=== PATIENT | female | born 1960 | race Caucasian/White ===

== ENCOUNTER 2019-06-22 13:23 | Outpatient (RCR) | payer BC, SELFPAY | END 2019-09-20 23:59 | disposition home or self-care (01) | LOC: ANHDMC 13:23 | PROVIDERS: PCP Family Medicine; Visit Provider Family Medicine | DX: E11.9 Type 2 diabetes mellitus without complications (principal); Z71.89 Other specified counseling | CPT/HCPCS: G0108 ==

== ENCOUNTER 2019-11-03 10:22 | Outpatient (CLI) | payer BC, SELFPAY ==
[2019-11-03 19:00] LABS: Free T4 Free Thyroxine 0.66 ng/mL (0.78-2.19)
[2019-11-05 10:04] LABS: Triiodothyronine T3 Free 2.3 pg/mL (2.3-4.2)
== END 2019-11-03 10:23 | disposition home or self-care (01) ==
LOC: ANHWCLAB 10:25
PROVIDERS: PCP Family Medicine; Visit Provider Internal Medicine Endocrinology, Diabetes & Metabolism
DX: E04.1 Nontoxic single thyroid nodule (principal); E05.90 Thyrotoxicosis, unspecified without thyrotoxic crisis or storm
CPT/HCPCS: 36415; 84439; 84481

== ENCOUNTER 2019-11-10 09:53 | Outpatient (CLI) | payer BC, SELFPAY | END 2019-11-10 09:54 | disposition home or self-care (01) | LOC: ANHWCLAB 09:55 | PROVIDERS: PCP Family Medicine; Visit Provider Internal Medicine Endocrinology, Diabetes & Metabolism | DX: E05.90 Thyrotoxicosis, unspecified without thyrotoxic crisis or storm (principal) | CPT/HCPCS: 36415; 84443 ==

== ENCOUNTER 2020-02-29 12:38 | Emergency (ER) | payer BC, SELFPAY ==
[2020-02-29 13:06] VITALS: BP 134/88; PULSE 85; RESP 16; TEMP 36.9; O2SAT 97
== END 2020-02-29 13:13 | disposition left against medical advice (07) ==
LOC: EXPCOLL 12:47
PROVIDERS: Emergency Provider Nurse Practitioner; PCP Family Medicine
DX: Z53.21 Procedure and treatment not carried out due to patient leaving prior to being seen by health care provider (principal)
CPT/HCPCS: 99199

== ENCOUNTER 2020-02-29 13:21 | Emergency (ER) | payer BC, SELFPAY ==
--- NOTE | ~2020-02-29 | CT_ITS ---
EXAMINATION: CT abdomen pelvis wo con DATE: 02/29/2020 15:38 INDICATION: Right-sided flank pain and hematuria TECHNIQUE: Computed tomography (CT) of the abdomen and pelvis was performed without intravenous contr ast. The dose-length product was 860.74 mGy-cm. Automated exposure control and iterative reconstructi on technique were employed. COMPARISON: CT dated 12/15/2013 FINDINGS: Bibasilar airspace disease. Heart size normal. No significant pleural or pericardial effusi on. No significant vascular abnormality. Small fat-containing umbilical hernia. There are multiple left renal stones. No ureteral stones or hy dronephrosis. There are cholecystectomy clips. Colonic diverticulosis without evidence for diverticul itis. IMPRESSION: 1. Bibasilar airspace disease may represent atelectasis or pneumonia. 2: Nonobstructing left nephrolithiasis. Reviewed, dictated and finalized at location B.
[2020-02-29 13:29] VITALS: BP 132/83; PULSE 97; RESP 16; TEMP 36.1; O2SAT 100
--- NOTE | 2020-02-29 15:02 | ED.ABDPAIN ---
HPI - Abdominal Pain General Chief Complaint: Abdominal Pain Stated Complaint: rlq pain, low back pain, recent uti Time Seen by Provider: 02/29/20 14:43 Source: patient Mode of arrival: ambulatory Limitations: no limitations History of Present Illness HPI narrative: This is a 59-year-old female that presents the emergency department for right-sided flank pain x1 week. Reports the pain is constant and intermittently is worse. Reports the pain radiates to her right lower abdomen. Also reports hematuria and fevers. Reports she has been seen by her primary for this and finished ciprofloxacin. Reports she is currently on Macrobid. Denies dysuria. Related Data Home Medications Medication Instructions Recorded Confirmed aspirin 81 mg tablet,delayed 81 mg PO DAILY 07/30/19 12/06/19 release cetirizine 10 mg capsule 10 mg PO DAILY 07/30/19 12/06/19 cholecalciferol (vitamin D3) 25 1,000 unit PO DAILY 07/30/19 12/06/19 mcg (1,000 unit) capsule cyanocobalamin (vitamin B-12) 1,000 mcg PO DAILY 07/30/19 12/06/19 1,000 mcg capsule potassium chloride 10 mEq 10 meq PO DAILY 07/30/19 12/06/19 capsule,extended release ferrous sulfate 325 mg (65 mg 325 mg PO DAILY tablet 11/03/19 12/06/19 iron) tablet metoprolol tartrate [Lopressor] 50 mg PO BID 02/29/20 Allergies Allergy/AdvReac Type Severity Reaction Status Date / Time sulfamethoxazole Allergy Intermediate HIVES Verified 02/29/20 13:44 Penicillins Allergy Unknown unknown Verified 02/29/20 13:44 sulfamethizole Allergy Unknown unknown Verified 02/29/20 13:44 trimethoprim Allergy Unknown unknown Verified 02/29/20 13:44 Review of Systems Review of Systems: Narrative: CONSTITUTIONAL: Reports fever GASTROINTESTINAL: Reports abdominal pain, nausea. Denies vomiting, or diarrhea. GENITOURINARY: Reports hematuria. Denies dysuria MUSCULOSKELETAL: Reports back pain All systems reviewed & are unremarkable except as noted in HPI and below PMFSH Past Medical History Medical History (Updated 02/29/20 @ 16:35 by Zita Sandoval PA-C) Cholecystectomy planned Diabetes mellitus Hypertension Surgical History Surgical History H/O: hysterectomy History of appendectomy Hx of tonsillectomy Knee joint replacement status Status post radioactive iodine thyroid ablation Social History Social History Smoking status: Never smoker Alcohol intake: never Gender identity (if verbalized by the patient): Female Exam Narrative: Exam Narrative: GENERAL: Well-appearing, well-nourished, and in no acute distress. HEAD: Normocephalic, atraumatic. EYES: EOMI. CHEST: Clear to auscultation. No respiratory distress. No wheezes rales or rhonchi HEART: Regular rate and rhythm. No murmur heard. Normal peripheral pulses. ABDOMEN: Soft, nondistended, normal active bowel sounds. Tender to palpation in the right lower quadrant, without guarding EXTREMITIES: Normal range of motion. No edema. SKIN: Warm, dry, no rash. NEURO: No focal deficits. Alert and oriented x3. PSYCH: Normal mood and affect Course Vital Signs Vital signs: Vital Signs Temperature 97.0 F L 02/29/20 13:29 Pulse Rate 97 02/29/20 13:29 Respiratory Rate 16 02/29/20 13:29 Blood Pressure 132/83 02/29/20 13:29 Pulse Oximetry 100 02/29/20 13:29 Temperature 97.0 F L 02/29/20 13:29 Pulse Rate 97 02/29/20 13:29 Respiratory Rate 16 02/29/20 13:29 Blood Pressure 132/83 02/29/20 13:29 Pulse Oximetry 100 02/29/20 13:29 MDM - Abdominal Pain MDM Narrative Medical decision making narrative: Patient presents to the emergency department for right-sided flank pain x1 week. She is afebrile and nontoxic-appearing. CBC is without leukocytosis. Metabolic panel with mild hypokalemia. Patient given dose of potassium in the ED. Also with mild transaminitis. UA with 3-5 red blood cells, no white
[2020-02-29] MEDS: SODIUM CHLORIDE 0.9% IV 1,000 ML 999 ML IV CONT (15:08)
[2020-02-29] MEDS: ONDANSETRON INJ 4 MG/2 ML VIAL IV PUSH (15:09)
[2020-02-29] MEDS: MORPHINE SULFATE 4 MG/ML INJ IV PUSH (15:09)
[2020-02-29 15:10] LABS: Basophils Percent Auto 0.8 % (0.2-1.2); Eosinophils Percent Auto 0.6 % (0-4.4); Hematocrit 40.4 % (37.0-47.0); Hemoglobin 13.2 g/dL (12.0-15.0); Immature Granulocyte Absolute 0.02 K/mm3 (0.00-0.031); Immature Granulocyte Percent A 0.4 % (0-0.5); Lymphocytes Absolute Auto 3.02 K/mm3 (0.9-3.2); Lymphocytes Percent Auto 57.5 % (18.3-44.2); Mean Corpuscular HGB Conc 32.7 g/dl (32-36); Mean Corpuscular Hemoglobin 28.8 pg (26-34); Mean Platelet Volume 9.3 fl (7.4-10.4); Monocytes Absolute Auto 0.3 K/mm3 (0.1-0.6); Monocytes Percent Auto 6.5 % (2.6-8.5); Neutrophils Absolute Auto 1.8 K/mm3 (1.3-6.7); Neutrophils Percent Auto 34.2 % (45.5-73.1); Platelet Count Result 146 k/mm3 (150-375); Red Blood Count 4.59 M/mm3 (4.2-5.4); Red Cell Distribution Width 14.6 % (11.5-14.5); White Blood Count 5.3 K/mm3 (4.5-10.0)
[2020-02-29 15:18] LABS: Add Urine Microscopic? YES; Appearance Urine Clear (Clear); Bilirubin Urine Negative (Negative); Blood Urine 1+ (Negative); Color Urine Yellow (Yellow); Glucose Urine UA Negative (Negative); Ketones Urine Negative (Negative); Leukocyte Esterase Ur Trace LEU/UL (Negative); Mucus Urine Rare /lpf; Nitrate Urine Negative (Negative); Protein Urine 1+ mg/dL (Negative); Specific Grav Ur 1.016 (1.001-1.035); Squamous Epithelial Cell Urine Moderate /hpf (Few); Urobilinogen Urine Negative mg/dL (<2.0); WBC Urine 0-3 /hpf
[2020-02-29 15:23] LABS: Alanine Aminotransferase 57 U/L (4-35); Albumin Level 4.6 g/dL (3.5-5.1); Alkaline Phosphatase 87 U/L (38-126); Aspartate Amino Transferase 78 U/L (14-36); Bilirubin,Total 0.8 mg/dL (0.2-1.3); Blood Urea Nitrogen 15 mg/dL (7-17); Calcium 9.4 mg/dL (8.4-10.2); Carbon Dioxide 30 mmol/L (22-30); Chloride 94 mmol/L (98-107); Estimated CRCL calculation 71 ml/min; Estimated Glomerular Filt Rate > 60; Glucose 136 mg/dL (65-105); Lipase 56 U/L (23-300); Potassium 3.3 mmol/L (3.4-5.0); Sodium 135 mmol/L (137-145)
[2020-02-29 15:32] LABS: Atypical Lymphocytes Present
[2020-02-29] MEDS: POTASSIUM CHLORIDE 20 MEQ TABLET 40 MEQ PO (16:23)
[2020-02-29 16:33] LABS: Lactic Acid Reflex 1.6 mmol/L (0.7-2.1)
[2020-02-29 17:13] VITALS: PULSE 88; RESP 20; O2SAT 100
== END 2020-02-29 17:15 | disposition home or self-care (01) ==
PROVIDERS: Physician Assistant; Emergency Provider Emergency Medicine; PCP Family Medicine
DX: R31.9 Hematuria, unspecified (principal); E11.9 Type 2 diabetes mellitus without complications; I10 Essential (primary) hypertension
CPT/HCPCS: 36415; 74176; 80053; 81001; 83605; 83690; 85025; 96361; 96365; 96375; 99284; A9270; J0131; J2270; J2405; J7030

== ENCOUNTER 2020-03-14 08:29 | Outpatient (CLI) | payer BC, SELFPAY ==
--- NOTE | ~2020-03-14 | CT_ITS ---
EXAMINATION: CT abdomen pelvis wo/w con DATE: 03/14/2020 09:19 INDICATION: Gross hematuria TECHNIQUE: Computed tomography (CT) of the abdomen and pelvis was performed without intravenous contr ast. CT of the abdomen and pelvis was then performed with a total of 130 mL Omnipaque 350 intravenous contrast using a double-bolus technique for simultaneous opacification of the renal parenchyma and r enal collecting system. The dose-length product (DLP) was 1999.73 mGy-cm. Automated exposure control and iterative reconstruction technique were employed. COMPARISON: 02/29/2020 FINDINGS: Minimal dependent atelectasis is present in the lung bases. The heart size is normal. The g allbladder is surgically absent. The liver, spleen, pancreas, and adrenal glands are normal. Nonobstr ucting stones of the left kidney lower pole measure 7 mm and 8 mm. No stones are identified in the ri ght kidney, the ureters, or the bladder. There is no hydronephrosis or hydroureter. No suspicious elvira al or urothelial lesion is identified. No pathologically enlarged abdominal or pelvic lymph nodes are identified. There is no free intraperitoneal gas or evidence of bowel obstruction. Colonic diverticu losis is present without evidence of diverticulitis. A tiny fat-containing umbilical hernia is noted. Mild lumbar spondylosis is noted. IMPRESSION: 1. Nonobstructing left nephrolithiasis. No suspicious renal or urothelial lesion identified. Reviewed, dictated and finalized at location B. IMPRESSION: 1. Nonobstructing left nephrolithiasis. No suspicious renal or urothelial lesio n identified.
--- NOTE | ~2020-03-14 | XR_ITS ---
EXAMINATION: XR abdomen/kub 1V INDICATION: Gross hematuria TECHNIQUE: Supine views of the abdomen were obtained on 2 radiographs. COMPARISON: None FINDINGS: Stones in the lower pole of left kidney measure 8 mm and 9 mm. There are no dilated loops o f bowel. Multiple pelvic phleboliths are noted. Cholecystectomy clips are noted in the right upper qu adrant. The bowel gas pattern is normal. IMPRESSION: 1. Left nephrolithiasis. Reviewed, dictated and finalized at location B. IMPRESSION: 1. Left nephrolithiasis.
== END 2020-03-14 08:30 | disposition home or self-care (01) ==
LOC: ANHIMG 08:35
PROVIDERS: PCP Family Medicine; Visit Provider Urology
DX: N20.0 Calculus of kidney (principal)
CPT/HCPCS: 74018; 74178; Q9967

== ENCOUNTER 2020-03-21 10:13 | Outpatient (CLI) | payer BC, SELFPAY ==
[2020-03-21 10:40] LABS: INR 1.1; Prothrombin Time 13.4 Seconds (11.1-14.7)
[2020-03-21 10:42] LABS: Anion Gap 12.1 mmol/L (7-16); Blood Urea Nitrogen 11 mg/dL (7-17); Calcium 9.2 mg/dL (8.4-10.2); Carbon Dioxide 33 mmol/L (22-30); Chloride 95 mmol/L (98-107); Estimated Glomerular Filt Rate > 60; Glucose 172 mg/dL (65-105); Potassium 3.1 mmol/L (3.4-5.0); Sodium 137 mmol/L (137-145)
== END 2020-03-21 10:14 | disposition home or self-care (01) ==
LOC: ANHSURGERY 10:14
PROVIDERS: Anesthesiology; PCP Family Medicine; Visit Provider Urology
DX: Z01.818 Encounter for other preprocedural examination (principal); N20.0 Calculus of kidney; E11.8 Type 2 diabetes mellitus with unspecified complications
CPT/HCPCS: 36415; 80048; 85610; 85730; 87086; 87088

== ENCOUNTER 2020-03-22 00:11 | Outpatient (CLI) | payer BC, SELFPAY ==
[2020-03-22 18:53] LABS: SARS-CoV-2 RNA PCR Negative
== END 2020-03-22 00:12 | disposition home or self-care (01) ==
LOC: ANHCOVIDDT 00:11
PROVIDERS: PCP Family Medicine; Visit Provider Urology
DX: Z01.812 Encounter for preprocedural laboratory examination (principal); Z11.59 Encounter for screening for other viral diseases
CPT/HCPCS: 87635; C9803; U0003

== ENCOUNTER 2020-03-24 00:21 | Day surgery (SDC) | payer BC, SELFPAY ==
[2020-03-20 13:48] VITALS: BMI 28.8
--- NOTE | 2020-03-23 10:44 | WPDANESEPPF ---
Anes - Initial Pre Proc Eval Procedure: Operation Date: 03/24/20 07:30 Proposed Procedures p Left Renal Extracorporeal Shock Wave Lithotripsy - Parminder Harrison MD Date/Time: 03/23/20 10:44 Surgeon: Parminder Harrison MD Pre Op Diagnosis: Left Renal Stone Patient Data Age: 59 Gender: F Height: 1.73 m Weight: 85.82 kg Allergies Allergy/AdvReac Type Severity Reaction Status Date / Time sulfamethoxazole Allergy Intermediate HIVES Verified 03/20/20 13:49 Penicillins Allergy Unknown Hives Verified 03/20/20 13:49 sulfamethizole Allergy Unknown Hives Verified 03/20/20 13:49 trimethoprim Allergy Unknown Hives Verified 03/20/20 13:49 Home Medications Medication Instructions Recorded Confirmed Type aspirin 81 mg tablet,delayed 81 mg PO DAILY 07/30/19 03/20/20 History release cetirizine 10 mg capsule 10 mg PO DAILY 07/30/19 03/20/20 History cholecalciferol (vitamin D3) 25 1,000 unit PO DAILY 07/30/19 03/20/20 History mcg (1,000 unit) capsule cyanocobalamin (vitamin B-12) 1,000 mcg PO DAILY 07/30/19 03/20/20 History 1,000 mcg capsule potassium chloride 10 mEq 10 meq PO DAILY 07/30/19 03/20/20 History capsule,extended release metformin 500 mg tablet,extended 1,000 mg PO BID #180 tablet 10/13/19 03/20/20 Rx release 24 hr montelukast 10 mg tablet 10 mg PO DAILY #90 tablet 10/14/19 03/20/20 Rx ferrous sulfate 325 mg (65 mg 325 mg PO DAILY tablet 11/03/19 03/20/20 History iron) tablet omeprazole 20 mg capsule,delayed 20 mg PO DAILY #90 cap 11/03/19 03/20/20 Rx release levothyroxine 100 mcg tablet 100 mcg PO DAILY #90 tablet 02/25/20 03/20/20 Rx metoprolol tartrate [Lopressor] 50 mg PO BID 02/29/20 03/20/20 History hydrochlorothiazide 12.5 mg tablet 12.5 mg PO DAILY #90 tablet 03/13/20 03/20/20 Rx Patient hx anesthesia problems: post op nausea/vomiting Family hx anesthesia problems: none PMFSH Past Medical History Medical History (Updated 03/23/20 @ 10:44 by Vishal Steen DO) Cholecystectomy planned Diabetes mellitus Hypertension Palpitations Postablative hypothyroidism Surgical History Surgical History H/O: hysterectomy History of appendectomy Hx of tonsillectomy Knee joint replacement status Status post radioactive iodine thyroid ablation Social History Social History Smoking status: Never smoker Alcohol intake: never Gender identity (if verbalized by the patient): Female Spiritual care concerns: No Anes - Eval Final PreProcedure Day of Procedure 03/23/20 10:44 Patient weight: overweight Heart: regular rate and rhythm Lungs: clear to auscultation and normal air movement Airway: Mallampati scale class III Neurological: alert and oriented Last oral intake: >/= 8 hours ASA classification: III Emergent: no Anesthetic plan: proceed Anesthesia type and monitoring: general LMA and standard monitoring Informed Consent: The patient's anesthetic plan and its attendant risks and benefits were discussed with the patient/family/POA. Questions were solicited and answers provided to the satisfaction of the patient/family/POA.
[2020-03-24] VITALS (8 sets, daily range): BP systolic 106–118; BP diastolic 61–79; PULSE 68–75; RESP 14–18; TEMP 36.1–36.2; O2SAT 95–100
--- NOTE | ~2020-03-24 | XR_ITS ---
XR abdomen/kub 1V DATE: 03/24/2020 06:20 INDICATION: Lithotripsy. Kidney stones. TECHNIQUE: AP projection, 2 views COMPARISON: KUB and CT abdomen pelvis without and with contrast material FINDINGS: Approximately 8 and 9 mm calcified calculi are again noted overlying the lower pole of left kidney, unchanged since 03/14/2020. Surgical clips, right upper quadrant, consistent with cholecystectomy. Calcified pelvic phleboliths. The bowel gas pattern is unremarkable, without evidence of obstruction. IMPRESSION: Lower pole left nephrolithiasis Status post cholecystectomy Reviewed, dictated and finalized at Location A. Reviewed, dictated and finalized at location A.
[2020-03-24] MEDS: FAMOTIDINE 20 MG/2 ML VIAL IV PUSH (07:00)
[2020-03-24] MEDS: SCOPOLAMINE 1.5 MG PATCH TRANSDERM (07:02)
[2020-03-24] MEDS: LACTATED RINGERS 1,000 ML 30 ML IV CONT ×2 (07:03→08:15)
--- NOTE | 2020-03-24 07:07 | WPDHPUPDATE1 ---
History and Physical Update Update Date/Time: 03/24/20 07:07 History and Physical has been reviewed, including an updated exam of the patient. There are NO changes in the patient's condition. Risks, benefits, and alternatives have been discussed and questions answered. Patient agrees to proceed with procedure.
[2020-03-24 07:18] LABS: Glucose Point of Care 143 (65-105)
[2020-03-24] MEDS: levoFLOXacin 500 MG/D5W 100 ML 500 MG/100 ML BAG 100 MG IVPB (07:22)
--- NOTE | 2020-03-24 08:08 | PM.PROC ---
Procedure Note - Detailed Date of procedure: 03/24/20 Pre-op diagnosis: Left Renal Stone Post-op diagnosis: same Procedure performed: ESWL left renal calculi Description of procedure: patient is taken to the operative suite and correctly identified. Once anesthesia was obtained the more superior stone measuring 9 mm is localized in both planes. There appeared to be fairly good fragmentation after 2200 shocks. We then focused the remaining 300 shocks on the other stone. Patient tolerated procedure well without any complications and is taken recovery room stable condition. She was given the standard post lithotripsy instructions and will follow up in 7-10 days with a KUB. IF she develops any problems she will call so we can deal with at appropriately. Anesthesia: GLMA Surgeon: Parminder Harrison MD Drains: No Packing: No Pathology: none sent Complications: No immediate complications Condition: stable Disposition: PACU
[2020-03-24 08:55] LABS: Glucose Point of Care 136 (65-105)
== END 2020-03-24 09:49 | disposition home or self-care (01) ==
PROVIDERS: PCP Family Medicine; Visit Provider Urology
PROC: (CPT 50590; principal; 2020-03-24 07:30)
DX: N20.0 Calculus of kidney (principal); I10 Essential (primary) hypertension; E11.9 Type 2 diabetes mellitus without complications; Z79.82 Long term (current) use of aspirin; Z79.84 Long term (current) use of oral hypoglycemic drugs
CPT/HCPCS: 50590; 74018; A9270; J1956; J2250; J2405; J2704; J3010; J7030; J7120

== ENCOUNTER 2020-04-03 08:01 | Outpatient (CLI) | payer BC, SELFPAY ==
--- NOTE | ~2020-04-03 | XR_ITS ---
EXAMINATION: XR abdomen/kub 1V INDICATION: Calcium kidney stone, left-sided abdominal pain TECHNIQUE: Supine views of the abdomen were obtained on 2 radiographs. COMPARISON: 03/24/2020 FINDINGS: There is a stable 10 mm stone of the left kidney lower pole. A second 10 mm stone of the le ft kidney lower pole is less dense than on the comparison examination, consistent with interval litho tripsy. No stones are identified along the expected course of the left ureter. Cholecystectomy clips are noted in the right upper quadrant. There are phleboliths of the pelvis. Mild bilateral hip osteoa rthritis is noted. IMPRESSION: 1. Left nephrolithiasis with interval decrease in density of one of the previously described stones, consistent with interval lithotripsy. Reviewed, dictated and finalized at location A. IMPRESSION: 1. Left nephrolithiasis with interval decrease in density of one of the previou sly described stones, consistent with interval lithotripsy.
== END 2020-04-03 08:02 | disposition home or self-care (01) ==
LOC: ANHIMG 08:07
PROVIDERS: PCP Family Medicine; Visit Provider Urology
DX: N20.0 Calculus of kidney (principal); R10.9 Unspecified abdominal pain; M54.5 Low back pain
CPT/HCPCS: 74018

== ENCOUNTER 2020-04-25 07:21 | Outpatient (CLI) | payer BC, SELFPAY ==
--- NOTE | ~2020-04-25 | XR_ITS ---
EXAMINATION: XR abdomen/kub 1V INDICATION: Left-sided calcium kidney stone post lithotripsy TECHNIQUE: Supine views of the abdomen were obtained on 2 radiographs. COMPARISON: 04/03/2020 FINDINGS: Stones of the left kidney lower pole persists with slight decrease in density, consistent w ith history of interval lithotripsy. Stone fragments measuring up to 2 mm project in the left mid/low er kidney. No definite stone fragments are identified along the expected course of the left ureter. T here are multiple pelvic phleboliths. A moderate volume of colonic stool is present. Cholecystectomy clips are noted. IMPRESSION: 1. Slight decrease in density of left kidney lower pole stones, consistent with history of lithotrips y. Tiny stone fragments seen in the left kidney lower pole. Reviewed, dictated and finalized at location B. IMPRESSION: 1. Slight decrease in density of left kidney lower pole stones, consistent with history of lithotripsy. Tiny stone fragments seen in the left kidney lower emma e.
== END 2020-04-25 07:22 | disposition home or self-care (01) ==
PROVIDERS: PCP Family Medicine; Visit Provider Urology
DX: N20.0 Calculus of kidney (principal)
CPT/HCPCS: 74018

== ENCOUNTER 2020-05-05 09:29 | Outpatient (CLI) | payer BC, SELFPAY ==
--- NOTE | 2020-05-05 09:31 | ECG_ITS ---
Measurements Intervals [place] Rate: 67 P: 16 OK: 154 QRS: 1 QRSD: 99 T: 9 QT: 389 QTc: 411 Interpretive Statements SINUS RHYTHM INCOMPLETE RIGHT BUNDLE BRANCH BLOCK NONSPECIFIC T-WAVE ABNORMALITY- ANTEROLAT/INF LEADS BASELINE ARTIFACT- I, II, III, AVR, AVL, AVF BORDERLINE ECG Electronically Signed On 05-05-2020 10:47:00 CDT by Geoffrey Meza D.O.
[2020-05-05 09:51] LABS: Hematocrit 38.5 % (37.0-47.0); Hemoglobin 12.4 g/dL (12.0-15.0)
[2020-05-05 10:01] LABS: INR 0.9; Prothrombin Time 12.2 Seconds (11.1-14.7)
[2020-05-05 10:02] LABS: Partial Thromboplastin Time 30.3 SECONDS (22.3-36.8)
== END 2020-05-05 09:30 | disposition home or self-care (01) ==
LOC: ANHSURGERY 09:31
PROVIDERS: Anesthesiology; PCP Family Medicine; Visit Provider Urology
DX: D64.9 Anemia, unspecified (principal); R00.2 Palpitations; N20.0 Calculus of kidney; I45.10 Unspecified right bundle-branch block
CPT/HCPCS: 36415; 85014; 85018; 85610; 85730; 87086; 93005

== ENCOUNTER 2020-05-17 02:38 | Outpatient (CLI) | payer BC, SELFPAY ==
[2020-05-17 18:24] LABS: SARS-CoV-2 RNA PCR Negative
== END 2020-05-17 02:39 | disposition home or self-care (01) ==
LOC: ANHCOVIDDT 02:38
PROVIDERS: PCP Family Medicine; Visit Provider Urology
DX: Z01.812 Encounter for preprocedural laboratory examination (principal); Z20.828 Contact with and (suspected) exposure to other viral communicable diseases
CPT/HCPCS: 87635; C9803; U0003

== ENCOUNTER 2020-05-19 00:53 | Day surgery (SDC) | payer BC, SELFPAY ==
[2020-05-04 15:18] VITALS: BMI 28.8
[2020-05-19] VITALS (7 sets, daily range): BP systolic 109–123; BP diastolic 68–77; PULSE 71–77; RESP 14–18; TEMP 35.9–36.7; O2SAT 97–100
--- NOTE | ~2020-05-19 | XR_ITS ---
EXAMINATION: XR abdomen/kub 1V EXAM DATE: 05/19/2020 06:27 INDICATION: For the emergency. TECHNIQUE: Frontal projection(s) of the abdomen for interpretation. Comparison is made to prior exami nation from 04/25/2020. FINDINGS: There are sizable left inferior calyceal stones identified through moderate amount of colo tanvir stool and gas. There are cholecystectomy clips. Nonobstructive bowel gas pattern. IMPRESSION: Left nephrolithiasis identified. Reviewed, dictated and finalized at location A.
[2020-05-19 06:52] LABS: Glucose Point of Care 202 (65-105)
[2020-05-19] MEDS: LACTATED RINGERS 1,000 ML 30 ML IV CONT ×2 (06:55→08:56)
--- NOTE | 2020-05-19 07:22 | WPDHPUPDATE1 ---
History and Physical Update Update Date/Time: 05/19/20 07:22 History and Physical has been reviewed, including an updated exam of the patient. There are NO changes in the patient's condition. Risks, benefits, and alternatives have been discussed and questions answered. Patient agrees to proceed with procedure. Proceed with left renal eswl
--- NOTE | 2020-05-19 07:54 | WPDANESEPPF ---
Anes - Initial Pre Proc Eval Procedure: Operation Date: 05/19/20 08:30 Proposed Procedures p Left Renal Extracorporeal Shock Wave Lithotripsy - Parminder Harrison MD Date/Time: 05/19/20 07:54 Surgeon: Parminder Harrison MD Pre Op Diagnosis: Left Renal Stone Patient Data Age: 60 Gender: F Height: 5 ft 8 in Weight: 91 kg Last Vital Signs Temp 35.9 C L 05/19/20 07:13 Pulse 71 05/19/20 07:13 Resp 16 05/19/20 07:13 BP 123/69 05/19/20 07:13 Pulse Ox 98 05/19/20 07:13 Allergies Allergy/AdvReac Type Severity Reaction Status Date / Time Penicillins Allergy Severe Hives Verified 05/19/20 06:42 sulfamethizole Allergy Severe Hives Verified 05/19/20 06:42 sulfamethoxazole Allergy Severe HIVES Verified 05/19/20 06:42 trimethoprim Allergy Severe Hives Verified 05/19/20 06:42 Home Medications Medication Instructions Recorded Confirmed Type aspirin 81 mg tablet,delayed 81 mg PO DAILY 07/30/19 05/19/20 History release cetirizine 10 mg capsule 10 mg PO DAILY 07/30/19 05/19/20 History cholecalciferol (vitamin D3) 25 1,000 unit PO DAILY 07/30/19 05/19/20 History mcg (1,000 unit) capsule cyanocobalamin (vitamin B-12) 1,000 mcg PO DAILY 07/30/19 05/19/20 History 1,000 mcg capsule potassium chloride 10 mEq 10 meq PO DAILY 07/30/19 05/19/20 History capsule,extended release montelukast 10 mg tablet 10 mg PO DAILY #90 tablet 10/14/19 05/19/20 Rx ferrous sulfate 325 mg (65 mg 325 mg PO DAILY tablet 11/03/19 05/19/20 History iron) tablet omeprazole 20 mg capsule,delayed 20 mg PO DAILY #90 cap 11/03/19 05/19/20 Rx release levothyroxine 100 mcg tablet 100 mcg PO DAILY #90 tablet 02/25/20 05/19/20 Rx metoprolol tartrate [Lopressor] 50 mg PO BID 02/29/20 05/19/20 History hydrochlorothiazide 12.5 mg tablet 12.5 mg PO DAILY #90 tablet 03/13/20 05/19/20 Rx metformin 500 mg tablet,extended 1,000 mg PO BID #180 tablet 04/11/20 05/19/20 Rx release 24 hr Laboratory Tests 05/19/20 06:50 POC Capillary Glucose 202 mg/dl H mg/dl (65-105) Patient hx anesthesia problems: none Family hx anesthesia problems: none PMFSH Past Medical History Medical History Cholecystectomy planned Diabetes mellitus Hypertension Palpitations Postablative hypothyroidism Surgical History Surgical History H/O: hysterectomy History of appendectomy Hx of tonsillectomy Knee joint replacement status Status post radioactive iodine thyroid ablation Family History Family History Father Diabetes mellitus Family history of cardiovascular disease Family history of diabetes mellitus in first degree relative Family history of congestive heart failure Family history of heart disease in male family member before age 55 Family history of hearing loss Hypertension Family history of elevated blood lipids Sibling Family history of migraine headaches Mother Family history of glaucoma Family history of cataracts Family history of arthritis Family history of malignant neoplasm of skin Family history of cardiovascular disease Hypertension Social History Social History Smoking status: Never smoker Alcohol intake: never Gender identity (if verbalized by the patient): Female Spiritual care concerns: No Anes - Eval Final PreProcedure Day of Procedure 05/19/20 07:54 Patient weight: obese Heart: regular rate and rhythm Lungs: clear to auscultation Airway: Mallampati scale class III and special considerations poor opening Neurological: alert and oriented Last oral intake: >/= 8 hours ASA classification: III Emergent: no Anesthetic plan: proceed Anesthesia type and monitoring: general LMA and standard monitoring Informed Consent: The patient's anesthetic plan and its at
[2020-05-19] MEDS: levoFLOXacin 500 MG/D5W 100 ML 500 MG/100 ML BAG 100 MG IVPB (08:19)
--- NOTE | 2020-05-19 08:58 | PM.PROC ---
Procedure Note - Detailed Date of procedure: 05/19/20 Pre-op diagnosis: Left Renal Stone Post-op diagnosis: same Procedure performed: ESWL left renal calculi Description of procedure: Patient is taken to the operative suite and correctly identified. Once anesthesia was obtained the stone in the left lower poles were identified. Two thousand five hundred shocks were given to the stones. Patient tolerated procedure well without any complications and was taken recovery stable condition. She will follow up in 7-10 days with a KUB. Anesthesia: GLMA Surgeon: Parminder Harrison MD Drains: No Packing: No Pathology: none sent Complications: No immediate complications Condition: stable Disposition: PACU
== END 2020-05-19 10:20 | disposition home or self-care (01) ==
PROVIDERS: PCP Family Medicine; Visit Provider Urology
PROC: (CPT 50590; principal; 2020-05-19 08:30)
DX: N20.0 Calculus of kidney (principal); I10 Essential (primary) hypertension; E11.9 Type 2 diabetes mellitus without complications; E89.0 Postprocedural hypothyroidism; Z79.82 Long term (current) use of aspirin; Z79.84 Long term (current) use of oral hypoglycemic drugs; E66.9 Obesity, unspecified; Z68.30 Body mass index [BMI] 30.0-30.9, adult
CPT/HCPCS: 50590; 74018; J1100; J1956; J2250; J2405; J3010; J7120

== ENCOUNTER 2020-06-01 10:52 | Outpatient (CLI) | payer BC, SELFPAY ==
--- NOTE | ~2020-06-01 | XR_ITS ---
EXAMINATION: XR abdomen/kub 1V INDICATION: Calcium kidney stone TECHNIQUE: Supine views of the abdomen were obtained on 2 radiographs. COMPARISON: 05/19/2020 FINDINGS: There are stable grouped stones in the lower pole of the left kidney. No stones are identif ied in the right kidney or along the expected courses of the ureters or bladder. There are phlebolith s of the pelvis. A moderate volume of colonic stool is present. Cholecystectomy clips are noted in th e right upper quadrant. There is mild osteoarthritis of the hips. IMPRESSION: 1. Left nephrolithiasis without significant change. Reviewed, dictated and finalized at location A.
== END 2020-06-01 10:53 | disposition home or self-care (01) ==
LOC: ANHIMG 10:56
PROVIDERS: PCP Family Medicine; Visit Provider Urology
DX: N20.0 Calculus of kidney (principal)
CPT/HCPCS: 74018

== ENCOUNTER 2020-06-13 07:47 | Outpatient (CLI) | payer BC, SELFPAY ==
--- NOTE | ~2020-06-13 | US_ITS ---
EXAMINATION: US thyroid DATE: 06/13/2020 09:46 INDICATION: Thyroid nodules TECHNIQUE: Multiple ultrasound images of the thyroid were obtained. COMPARISON: 10/10/2017 and 07/17/2016 FINDINGS: The right thyroid lobe measures 3.5 x 1.0 x 1.0 cm. The left thyroid lobe measures 4.4 x 1.1 x 1.5 c m. Thyroid isthmus measures 3 mm in thickness. There are several nodules in the left thyroid the lar gest a 2.2 cm wider than tall, solid hypoechoic nodule with smooth margins and coarse calcifications, (TI-RADS 4, moderately suspicious , FNA if >=1.5 cm, annual followup is >1 cm) which is without sign ificant interval change and with previous biopsy pathology read as consistent with benign follicular nodule with features of hemorrhagic cyst. Slight interval decrease in size of a now 1.3 cm very hyp oechoic wider than tall solid nodule with coarse calcification, also TI-RADS 4. Finally there is a 1. 0 cm very hypoechoic, likely solid wider than tall TI RADS 4 left thyroid nodule without echogenic fo ci. 3-4 mm solid hypoechoic TI RADS 4 nodule in the right thyroid. IMPRESSION: 1. Multinodular goiter with no significant interval change in several thyroid nodules including a the largest 2.2 cm left thyroid nodule which was previously biopsied with pathology read as consistent with benign follicular nodule with features of hemorrhagic cyst. Reviewed, dictated and finalized at location B. IMPRESSION: 1. Multinodular goiter with no significant interval change in several thyroid n odules including a the largest 2.2 cm left thyroid nodule which was previously biopsied with pathology read as consistent with benign follicular nodule with features of hemorrhagic cyst.
== END 2020-06-13 07:48 | disposition home or self-care (01) ==
PROVIDERS: PCP Family Medicine; Visit Provider Internal Medicine Endocrinology, Diabetes & Metabolism
DX: E04.2 Nontoxic multinodular goiter (principal)
CPT/HCPCS: 76536

== ENCOUNTER 2020-09-13 16:11 | Observation (INO) | payer BC, SELFPAY ==
[2020-09-13] VITALS (51 sets, daily range): BP systolic 118–151; BP diastolic 66–85; PULSE 72–102; RESP 9–22; TEMP 35.8–36.6; O2SAT 95–98; BMI 32.7
--- NOTE | ~2020-09-13 | XR_ITS ---
EXAMINATION: XR shoulder LT min 2V DATE: 09/14/2020 09:51 INDICATION: Left shoulder pain. TECHNIQUE: 4 views of left shoulder were obtained. COMPARISON: Left shoulder radiographs 09/18/2015 FINDINGS: Bone alignment is normal. No fracture. There is mild osteoarthritis of glenohumeral joint a nd acromioclavicular joint. IMPRESSION: 1. Mild polyarticular osteoarthritis. Reviewed, dictated and finalized at location A. HER NOVELTY PARTS CUTTER
--- NOTE | ~2020-09-13 | XR_ITS ---
EXAMINATION: XR_CERV2-3V_CR DATE: 09/14/2020 09:51 INDICATION: Neck and left arm pain. TECHNIQUE: 3 views of cervical spine on 4 radiographs were obtained. COMPARISON: None. FINDINGS: There is 6 degrees dextrocurvature of cervical spine. There is 2 mm anterolisthesis of C4 o n C5 and 2 mm retrolisthesis of C5 on C6. There is kyphosis of cervical spine. Vertebral body heights are normal. There is mildly decreased disc height at C4-C5, severely decreased disc height at C5-C6, and mildly decreased disc height at C6-C7. There is multilevel facet joint osteoarthritis, severe on the left at C3-C4 and C4-C5. There is multilevel uncovertebral joint osteoarthritis, severe bilatera lly at C5-C6 and C6-C7. There is mild central canal stenosis at C4-C5, C5-C6, and C6-C7. No preverteb ral soft tissue swelling. IMPRESSION: 1. Severe cervical spondylosis. Reviewed, dictated and finalized at location A. RNITY NURSE
--- NOTE | ~2020-09-13 | NM_ITS ---
EXAMINATION: NM kelsey stress w perfusion EXAM DATE: 09/15/2020 07:53 INDICATION: Chest pain. TECHNIQUE: Rest images were obtained following intravenous administration of 9.4 mCi Tc99m tetrofosmi n (Myoview). The patient was infused intravenously with Lexiscan (regadenoson). Then, 29.1 mCi Tc99m tetrofosmin (Myoview) was administered intravenously, and stress images were obtained. Data was recon structed into short axis and horizontal and vertical long axis SPECT images. Gated SPECT images were also obtained. There is no prior study for comparison. FINDINGS: There is no reversible or fixed perfusion abnormality to suggest ischemia or infarction. Th ere is normal left ventricular wall motion. End diastolic volume: 90 mL. End-systolic volume: 22 mL. Left ventricular ejection fraction: 76%. IMPRESSION: 1. Normal myocardial perfusion at rest and during stress. 2. Left ventricular ejection fraction measuring 76%. Reviewed, dictated and finalized at location A. PRESIDENT OF ADVERTISING
--- NOTE | ~2020-09-13 | XR_ITS ---
EXAMINATION: XR chest 2V DATE: 09/13/2020 16:49 INDICATION: Left chest pain. Shortness of breath. TECHNIQUE: Frontal and lateral views of the chest were obtained. COMPARISON: Chest 2 views 04/09/2019 FINDINGS: There is mild atelectasis in the lower lung zones. No pleural effusion or pneumothorax. The heart size is normal. IMPRESSION: 1. Mild atelectasis in the lower lung zones. Reviewed, dictated and finalized at location A. N EXPORT COORDINATOR
--- NOTE | 2020-09-13 16:23 | ECG_ITS ---
Measurements Intervals [place] Rate: 86 P: 49 AR: 155 QRS: -1 QRSD: 109 T: -14 QT: 350 QTc: 419 Interpretive Statements SINUS RHYTHM DELAYED PRECORDIAL R/S TRANSITION NONSPECIFIC T-WAVE ABNORMALITY- ANTEROLAT/INF LEADS BORDERLINE ECG Electronically Signed On 09-13-2020 18:21:09 IMPORT AND EXPORT CLERK by Geoffrey Meza D.O.
[2020-09-13 16:36] LABS: Basophils Percent Auto 0.6 % (0.2-1.2); Eosinophils Absolute Auto 0.1 K/mm3 (0-0.3); Eosinophils Percent Auto 1.6 % (0-4.4); Hematocrit 37.6 % (37.0-47.0); Hemoglobin 12.2 g/dL (12.0-15.0); Immature Granulocyte Absolute 0.02 K/mm3 (0.00-0.031); Immature Granulocyte Percent A 0.4 % (0-0.5); Lymphocytes Absolute Auto 1.74 K/mm3 (0.9-3.2); Lymphocytes Percent Auto 33.9 % (18.3-44.2); Mean Corpuscular HGB Conc 32.4 g/dl (32-36); Mean Corpuscular Hemoglobin 28.2 pg (26-34); Mean Corpuscular Volume 86.8 fl (80-100); Mean Platelet Volume 8.9 fl (7.4-10.4); Monocytes Absolute Auto 0.4 K/mm3 (0.1-0.6); Neutrophils Absolute Auto 2.9 K/mm3 (1.3-6.7); Neutrophils Percent Auto 56.5 % (45.5-73.1); Platelet Count Result 196 k/mm3 (150-375); Red Blood Count 4.33 M/mm3 (4.2-5.4); Red Cell Distribution Width 13.1 % (11.5-14.5); White Blood Count 5.1 K/mm3 (4.5-10.0)
[2020-09-13] MEDS: ASPIRIN 81 MG CHEWABLE TABLET 324 MG PO (16:44)
[2020-09-13 16:47] LABS: Anion Gap 10 mmol/L (8-16); Blood Urea Nitrogen 20 mg/dL (7-17); Calcium 9.8 mg/dL (8.4-10.2); Carbon Dioxide 28 mmol/L (22-30); Chloride 99 mmol/L (98-107); Estimated CRCL calculation 91 ml/min; Estimated Glomerular Filt Rate > 60; Glucose 242 mg/dL (65-105); INR 0.9; Potassium 3.9 mmol/L (3.4-5.0); Prothrombin Time 13.2 Seconds (11.1-14.7); Sodium 137 mmol/L (137-145)
[2020-09-13 16:48] LABS: Partial Thromboplastin Time 32.6 SECONDS (22.3-36.8)
[2020-09-13 17:03] LABS: Troponin I 0.045 ng/mL (0.000-0.034)
--- NOTE | 2020-09-13 17:56 | ED.CHESTPAIN ---
HPI - Chest Pain General Chief Complaint: Chest Pain Stated Complaint: sent from , abnormal EKG Time Seen by Provider: 09/13/20 16:28 History of Present Illness HPI narrative: Patient is a 60-year-old female who presents ER with left arm pain. Reports over the last week she has been developing left arm pain that radiates down her hand and up into her neck whenever she physically exerts herself or moves fast. Pain can sometimes last for couple hours at a time. Is associated with some mild cold sweats. No shortness of breath. She also reports intermittent palpitations that can also last anywhere from 5 minutes to an hour. That has been going on for over a year. When her heart rate is elevated she reports it is 150 bpm. She does not get the shoulder or arm discomfort with the palpitations. She was seen by her primary care physician after having a particularly bad episode of discomfort in her arm and neck 2 days ago. She was told she had an abnormal EKG and that she should come to the ER for further evaluation. Related Data Home Medications Medication Instructions Recorded Confirmed cetirizine 10 mg capsule 10 mg PO DAILY 07/30/19 05/19/20 cholecalciferol (vitamin D3) 25 1,000 unit PO DAILY 07/30/19 05/19/20 mcg (1,000 unit) capsule cyanocobalamin (vitamin B-12) 1,000 mcg PO DAILY 07/30/19 05/19/20 1,000 mcg capsule magnesium oxide 500 mg tablet 500 mg PO DAILY 09/13/20 Allergies Allergy/AdvReac Type Severity Reaction Status Date / Time Penicillins Allergy Severe Hives Verified 09/13/20 16:21 sulfamethizole Allergy Severe Hives Verified 09/13/20 16:21 sulfamethoxazole Allergy Severe HIVES Verified 09/13/20 16:21 trimethoprim Allergy Severe Hives Verified 09/13/20 16:21 Review of Systems Review of Systems: All systems reviewed & are unremarkable except as noted in HPI and below Constitutional: Constitutional: Denies chills, Denies fever(s) and Denies weakness ENT: Denies nasal congestion and Denies sore throat Cardiovascular: Cardiovascular: Denies chest pain, Reports rapid heart rate and Reports radiating jaw, neck or arm pain Comments: Sweats Respiratory: Respiratory: Denies cough, Reports dyspnea and Denies wheezing Gastrointestinal: Gastrointestinal: Denies abdominal pain, Denies nausea and Denies vomiting Neurologic: Denies numbness PMFSH Past Medical History Medical History (Updated 09/13/20 @ 19:23 by Toby Rodríguez MD) Cholecystectomy planned Diabetes mellitus Hypertension Palpitations Postablative hypothyroidism Surgical History Surgical History H/O: hysterectomy History of appendectomy Hx of tonsillectomy Knee joint replacement status Status post radioactive iodine thyroid ablation Family History Family History Father Diabetes mellitus Family history of cardiovascular disease Family history of diabetes mellitus in first degree relative Family history of congestive heart failure Family history of heart disease in male family member before age 55 Family history of hearing loss Hypertension Family history of elevated blood lipids Sibling Family history of migraine headaches Mother Family history of glaucoma Family history of cataracts Family history of arthritis Family history of malignant neoplasm of skin Family history of cardiovascular disease Hypertension Social History Social History (Updated 09/13/20 @ 14:42 by Cori Varma [facility]) Smoking status: Never smoker Second hand tobacco smoke exposure: No Alcohol intake: never Substance use: never Substance use type: does not use Gender identity (if verbalized by the patient): Female Spiritual care concerns: No Agree to blood products: Yes Exam Narrative: Exam Narrative: GENERAL: Well-appearing, well-nourished, and in no acute distress. HEAD: Normocephalic, atraumatic. CHEST: Clear
--- NOTE | 2020-09-13 19:24 | PC.NURSE ---
2nd trop drawn and sent to lab. patient aware of expected wait time. aware of probable admission. in room. denies needs. on electronic device monitor.
[2020-09-13 19:54] LABS: Troponin I 0.045 ng/mL (0.000-0.034)
--- NOTE | 2020-09-13 20:34 | PC.NURSE ---
patient ambulated to restroom. no change in condition. waiting for bed assignment upstairs. on engine monitor. in room. denies needs.
--- NOTE | 2020-09-13 20:55 | PC.NURSE ---
patient given lunch box and drink. aware of bed situation. nursing supervisor garment manufacturing aware and moving patients. patient and her aware. denies any other needs.
--- NOTE | 2020-09-13 22:16 | ADMGEN ---
This patient, Aundrea Rao, was admitted to IMU Room 205-02. Patient/family oriented to hospital policies and general routines including ID bracelet, bed and alarms, visiting hours, pain management, procedures, bathroom and other care routines, personal items, smoking policy, room service/diet, and visiting hours. Information on how to activate the Rapid Response Team has been discussed. Patient/Family are encouraged to report perceived risks to care and to ask questions if they do not understand what they are told or what they should do.
--- NOTE | 2020-09-13 22:40 | PM.IMHP ---
H&P: HPI History of Present Illness Date/Time: 09/14/20 00: Chief Complaint: left arm pain Narrative: Aundrea Rao is a 60 year old female with a past medical history of hypertension, diabetes and normal cardiac catheterization 2015 who presented to the ER with left upper chest pain and arm pain for the last week. The patient reports that the pain radiates down into her arm into her fingers. The pain in her fingers is tingling in nature. She reports that the pain usually occurs when she is exerting herself or moving fast. The pain is also worse when she bends her neck to the left. the pain will occasionally also move from her shoulder up the left side of her neck into her ear. It is occasionally associated with shortness of breath and nausea. However she does get the shortness of breath with exertion at times when she also does not have the arm pain She occasionally also has some cold sweats with symptoms. She does have a history of palpitations. Her palpitations have been ongoing for about a year. Her palpitations can last anywhere from 5 minutes to an hour. When her heart rates elevated be up to 150 beats per minute. She does not get chest pain with the palpitations. She had a cardiac catheterization and echocardiogram in 2016 that was completely normal. Review of Systems Review of Systems: Narrative: 12 systems were reviewed with pertinent positives and negatives per HPI. Except as documented in the HPI, all other systems were reviewed and are negative. [facility] Past Medical History Medical History (Updated 09/14/20 @ 08:54 by Denisse Ballard DO) Calcium kidney stones Diabetes mellitus Essential (primary) hypertension Gastro-esophageal reflux disease without esophagitis History of esophageal dilatation due to esophageal spasm Hyperthyroidism with history of radioactive iodine treatment Loose right total knee arthroplasty Obstructive sleep apnea Palpitations Postablative hypothyroidism Vitamin D deficiency Surgical History Surgical History (Updated 09/14/20 @ 08:30 by Denises Ballard DO) H/O: hysterectomy History of appendectomy History of bilateral carpal tunnel release History of bladder suspension procedure History of cardiac catheterization April 2016 Hx of cholecystectomy Hx of tonsillectomy Knee joint replacement status 2019 S/P cystoscopy with ureteral stent placement left renal stone 05/2020 Status post radioactive iodine thyroid ablation Family History Family History (Updated 09/14/20 @ 08:33 by Denisse Ballard DO) Father Diabetes mellitus Hypertension Heart disease CHF (congestive heart failure) Hearing loss Hyperlipidemia Sibling Migraines Mother Hypertension Cataract Glaucoma Skin cancer Osteoarthritis Heart disease Social History Social History (Updated 09/14/20 @ 08:36 by Denisse Ballard DO) Social History: 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 She lives in [facility] with her of 35 years. They have 1 cat. She has 2 adult children are healthy. Smoking status: Never smoker Second hand tobacco smoke exposure: No Alcohol intake: never Substance use: never Gender identity (if verbalized by the patient): Female Spiritual care concerns: No Agree to blood products: Yes Meds Home Medications and Allergies Home Medications Medication Instructions Recorded Confirmed Type cetirizine 10 mg capsule 10 mg PO DAILY 07/30/19 09/13/20 History cholecalciferol (vitamin D3) 25 1,000 unit PO DAILY 07/30/19 09/13/20 History mcg (1,000 unit) capsule cyanocobalamin (vitamin B-12) 1,000 mcg PO DAILY 07/30/19 09/13/20 History 1,000 mcg capsule omeprazole 20 mg capsule,delayed 20 mg PO DAILY #90 cap 11/03/19 09/13/20 Rx release hydrochlorothiazide 12.5 mg tablet 12.5 mg PO DAILY #90 tablet 03/13/20 09/13/20 Rx metformin 500 mg tablet,extended 1,000 mg PO BID #180 tablet 04/11/20 09/13/20 Rx release 24 hr levothyroxine
[2020-09-13 22:51] LABS: Troponin I 0.041 ng/mL (0.000-0.034)
[2020-09-14] VITALS (13 sets, daily range): BP systolic 115–137; BP diastolic 45–70; PULSE 68–86; RESP 16–22; TEMP 35.9–36.7; O2SAT 96–99
--- NOTE | 2020-09-14 | EST_ITS ---
Patient Info Name: Aundrea Rao Age: 60 years : 1960 Gender: Female Ht: 68 in Wt: 212 lbs BSA: 2.18 m2 Exam Date: 09/14/2020 12:25 PM Exam Location: [facility] Stress Patient Status: Inpatient Admit Date: 09/13/2020 Staff Ordering Physician: Tenisha Howard MD Attending Provider: Alicia Franco PA-C Exercise Technologist: Courtney Ford RDCS Exercise Physician: Rehan Hearn MD Exam Type: CA stress kelsey w NM Study Info Indications R07.9 - Chest pain, unspecified A regadenoson stress test was performed. Summary 1. Please correlate with nuclear medicine images, reported separately. 2. No abnormal ST changes with lexiscan. Protocol: Lexiscan Stress ECG Details Stage: REST Duration (min): 2 min : 13 sec HR (bpm): 75 SBP (mmHg): 130 DBP (mmHg): 80 Stage: REST Duration (min): 16 min : 20 sec HR (bpm): 74 SBP (mmHg): 130 DBP (mmHg): 80 Stage: STAGE 1 Duration (min): 1 min : 0 sec HR (bpm): 87 SBP (mmHg): 127 DBP (mmHg): 81 Stage: RECOVERY Duration (min): 1 min : 0 sec HR (bpm): 94 SBP (mmHg): 120 DBP (mmHg): 79 Stage: RECOVERY Duration (min): 2 min : 0 sec HR (bpm): 88 SBP (mmHg): 120 DBP (mmHg): 79 Stage: RECOVERY Duration (min): 3 min : 0 sec HR (bpm): 86 SBP (mmHg): 127 DBP (mmHg): 76 Stage: RECOVERY Duration (min): 3 min : 2 sec HR (bpm): 86 SBP (mmHg): 127 DBP (mmHg): 76 Rest HR: 74 bpm Peak HR: 97 bpm Rest Sys BP: 130 mmHg Peak Sys BP: 127 mmHg Max Pred HR: 161 bpm % Max Pred HR: 60 % Target HR: 137 bpm Max RPP: 12,319 bpm*mmHg Total Time: 1 min : 0 sec Rest Simmons BP: 80 mmHg Peak Simmons BP: 81 mmHg Total Dose: 0.4 mg Resting ECG Normal sinus rhythm. Nonspecific t wave abnormality. Stress ECG No abnormal ST/T wave changes with exercise. Arrhythmias None. Report Signatures
[2020-09-14] MEDS: METOPROLOL TARTRATE 50 MG TAB PO ×2 (02:11→08:37)
[2020-09-14] MEDS: LEVOTHYROXINE SODIUM 100 MCG TABLET PO (05:57)
[2020-09-14] MEDS: metFORMIN HCL 500 MG TABLET 1000 MG PO (08:35)
[2020-09-14] MEDS: LORATADINE 10 MG TABLET PO (08:36)
[2020-09-14] MEDS: MAGNESIUM OXIDE 400 MG TABLET PO (08:36)
[2020-09-14] MEDS: ASPIRIN 81 MG ENTERIC TABLET PO (08:36)
[2020-09-14] MEDS: CHOLECALCIFEROL 1,000 UNITS TABLET 1000 UNITS PO (08:36)
--- NOTE | 2020-09-14 08:36 | PM.CNCAR ---
Assessment and Plan Assessment and plan (1) Chest pain: Qualifiers: Chest pain type: unspecified Qualified Code(s): R07.9 - Chest pain, unspecified Code(s): R07.9 - Chest pain, unspecified Status: Acute Assessment and Plan: Patient has multiple risk factors for coronary artery disease including diabetes, hypertension, family history of CAD. Will arrange for Lexiscan stress test to rule out ischemia. She had minimally elevated troponins and 0.045. (2) Heart palpitations: Code(s): R00.2 - Palpitations Status: Acute Assessment and Plan: If stress test comes out negative then the patient can be discharged home and we will arrange for a one-week event monitor to rule out arrhythmias. History of Present Illness History of Present Illness Consult date/time: 09/14/20 08:36 Requesting physician: Toby Rodríguez MD Consult reason: chest pain Reason For Visit: chest pain, elevated troponin Narrative: This is 60-year-old female with past medical history of hypertension, diabetes, hypothyroidism. She was yesterday at the primary care doctor's office was complaining of left shoulder pain radiating to the left arm and the left jaw associated with shortness of breath and palpitations. It was intense pain. She had it for several weeks but it got bad in the last couple days. She also states she has long history of palpitations that attributed to her hyperthyroidism. She underwent radioiodine ablation last year. She was treated with metoprolol for that matter. She never had a heart monitor as she mentions. She had a normal cardiac catheterization 2016 because she had chest pain. She reports her dad had myocardial infarction in his 50s. Troponins x3 0.045, EKG reviewed and analyzed myself shows sinus rhythm, nonspecific T-wave changes. Chest x-ray reviewed and analyzed myself shows minimal atelectasis lower lung zones, creatinine 0.7, COVID negative Review of Systems Constitutional: Constitutional: Denies chills, Denies fever(s) and Denies poor appetite Eyes: Eyes: Denies eye discharge, Denies loss of vision, Denies eye pain and Denies photophobia ENT: Denies dizziness, Denies epistaxis, Denies nasal congestion and Denies sore throat Cardiovascular: Cardiovascular: Reports chest pain, Denies syncope, Denies pedal edema, Denies leg edema, Reports palpitations, Reports dyspnea, Reports dyspnea on exertion and Denies orthopnea Respiratory: Respiratory: Denies cough, Reports dyspnea, Reports dyspnea on exertion and Denies wheezing Gastrointestinal: Gastrointestinal: Denies abdominal pain, Denies diarrhea, Denies nausea and Denies vomiting Genitourinary: Genitourinary: Denies hematuria, Denies genital lesions and Denies dysuria Musculoskeletal: Musculoskeletal: Denies arthralgias, Denies joint swelling and Denies numbness Integumentary/Breasts: Skin/Breast: Denies pruritus and Denies rash Neurologic: Denies dizziness, Denies syncope, Denies loss of vision and Denies numbness Psychiatric: Psychiatric: Denies anxiety and Denies depression Endocrine: Endocrine: Denies cold intolerance, Denies heat intolerance and Denies palpitations Hematologic/Lymphatic: Hematologic/Lymphatic: Denies easy bleeding and Denies easy bruising Allergic/Immunologic: Allergic/Immunologic: Denies urticaria and Denies wheezing PMFSH Past Medical History Medical History Diabetes mellitus GERD (gastroesophageal reflux disease) History of esophageal dilatation due to esophageal spasm Hypertension Hyperthyroidism with history of radioactive iodine treatment Loose right total knee arthroplasty Obstructive sleep apnea Palpitations Postablative hypothyroidism Vitamin D deficiency Surgical History Surgical History H/O: hysterectomy History of appendectomy History of bilateral carpal tunnel rel
[2020-09-14] MEDS: hydroCHLOROthiazide 12.5 MG CAPSULE PO (08:37)
[2020-09-14] MEDS: CYANOCOBALAMIN 1,000 MCG TABLET 1000 MCG PO (08:37)
[2020-09-14] MEDS: PANTOPRAZOLE 40 MG TABLET PO (08:38)
[2020-09-14 08:52] LABS: Glucose Point of Care 238 (65-105)
[2020-09-14] MEDS: INSULIN ASPART (*BKC) 100 UNITS/ML SUB-Q ×2 (08:59→18:16)
--- NOTE | 2020-09-14 09:04 | PM.IMPN ---
Subjective Date/time seen: 09/14/20 0850 Objective Data Vital Signs Vital Signs: Vital Signs - 24 hr 09/13/20 16:15 09/13/20 16:31 09/13/20 16:32 Temperature 97.9 F Pulse Rate 78 77 79 Respiratory Rate 18 13 17 Blood Pressure 131/77 151/77 H Pulse Oximetry 98 96 97 09/13/20 16:40 09/13/20 16:48 09/13/20 16:49 Temperature Pulse Rate 78 78 80 Respiratory Rate 12 16 Blood Pressure 137/83 Pulse Oximetry 97 96 09/13/20 17:00 09/13/20 17:01 09/13/20 17:15 Temperature Pulse Rate 79 75 79 Respiratory Rate 13 15 13 Blood Pressure 139/74 Pulse Oximetry 96 96 96 09/13/20 17:16 09/13/20 17:17 09/13/20 17:37 Temperature Pulse Rate 78 83 81 Respiratory Rate 18 9 L 19 Blood Pressure 144/85 H Pulse Oximetry 95 97 09/13/20 17:39 09/13/20 17:45 09/13/20 17:46 Temperature Pulse Rate 75 76 76 Respiratory Rate 14 14 16 Blood Pressure 135/77 136/75 Pulse Oximetry 97 96 96 09/13/20 18:00 09/13/20 18:01 09/13/20 18:15 Temperature Pulse Rate 76 74 102 H Respiratory Rate 18 15 22 H Blood Pressure 126/83 Pulse Oximetry 96 95 09/13/20 18:30 09/13/20 18:45 09/13/20 18:58 Temperature Pulse Rate 82 74 78 Respiratory Rate 18 16 15 Blood Pressure 118/72 Pulse Oximetry 96 96 96 09/13/20 19:00 09/13/20 19:01 09/13/20 19:02 Temperature Pulse Rate 81 75 82 Respiratory Rate 19 17 14 Blood Pressure 122/78 Pulse Oximetry 96 96 96 09/13/20 19:15 09/13/20 19:16 09/13/20 19:17 Temperature Pulse Rate 79 80 81 Respiratory Rate 16 15 14 Blood Pressure 129/78 Pulse Oximetry 97 96 97 09/13/20 19:30 09/13/20 19:31 09/13/20 19:45 Temperature Pulse Rate 75 78 74 Respiratory Rate 17 18 16 Blood Pressure 124/80 Pulse Oximetry 96 97 97 09/13/20 19:46 09/13/20 20:00 09/13/20 20:01 Temperature Pulse Rate 73 78 72 Respiratory Rate 17 18 16 Blood Pressure 127/71 123/79 Pulse Oximetry 96 96 97 09/13/20 20:15 09/13/20 20:16 09/13/20 20:30 Temperature Pulse Rate 77 75 75 Respiratory Rate 16 18 16 Blood Pressure 121/75 Pulse Oximetry 96 95 97 09/13/20 20:31 09/13/20 20:32 09/13/20 20:45 Temperature Pulse Rate 74 84 81 Respiratory Rate 17 19 14 Blood Pressure 123/73 Pulse Oximetry 96 98 96 09/13/20 20:46 09/13/20 20:47 09/13/20 21:00 Temperature Pulse Rate 78 78 86 Respiratory Rate 17 16 18 Blood Pressure 142/82 H Pulse Oximetry 96 96 09/13/20 21:01 09/13/20 21:15 09/13/20 21:16 Temperature Pulse Rate 82 78 75 Respiratory Rate 19 19 17 Blood Pressure 135/78 138/81 Pulse Oximetry 97 97 09/13/20 21:30 09/13/20 21:31 09/13/20 21:55 Temperature 96.5 F L Pulse Rate 77 77 90 Respiratory Rate 17 18 18 Blood Pressure 128/77 144/66 H Pulse Oximetry 97 97 98 09/13/20 22:00 09/13/20 22:15 09/13/20 23:49 Temperature 97.3 F L Pulse Rate 78 80 77 Respiratory Rate 16 Blood Pressure 127/67 Pulse Oximetry 98 97 09/14/20 00:00 09/14/20 02:11 09/14/20 04:00 Temperature 96.9 F L Pulse Rate 86 86 69 Respiratory Rate 16 16 Blood Pressure 115/67 Pulse Oximetry 97 99 09/14/20 06:00 09/14/20 08:27 09/14/20 08:37 Temperature 96.6 F L Pulse Rate 70 73 73 Respiratory Rate 20 Blood Pressure 135/45 L Pulse Oximetry 97 Intake/Output Intake/Output: Intake & Output 09/11/20 09/12/20 09/13/20 09/14/20 23:59 23:59 23:59 23:59 Intake Total 450 Output Total 300 Balance 150 Meds/Results Medications: Active Medications Generic Name Dose Route Start Last Admin Trade Name Freq PRN Reason Stop Dose Admin Acetaminophen 650 mg 09/14/20 07:23 Acetaminophen 325 Mg Tablet PO Q4H PRN Pain Rated 5 or Less Hydrocodone Bitart/Acetaminophen 1 tab 09/14/20 07:23 Hydrocodone/Acetaminophen (*Crx) 5-325 Mg Tablet PO Q4H PRN Pain Rated 6 or Greater Aspirin 81 mg 09/14/20 09:00 09/14/20 08:36 Aspirin 81 Mg Enteric Tablet PO 8
--- NOTE | 2020-09-14 09:44 | WPDHPUPDATE1 ---
History and Physical Update Update Date/Time: 09/14/20 0830 am History and Physical has been reviewed, including an updated exam of the patient. There are NO changes in the patient's condition. Risks, benefits, and alternatives have been discussed and questions answered. Patient agrees to proceed with procedure.
--- NOTE | 2020-09-14 09:44 | WPDMODSED ---
Moderate Sedation Note-Pt Data Patient Data Allergies Allergy/AdvReac Type Severity Reaction Status Date / Time Penicillins Allergy Severe Hives Verified 09/13/20 16:21 sulfamethizole Allergy Severe Hives Verified 09/13/20 16:21 sulfamethoxazole Allergy Severe HIVES Verified 09/13/20 16:21 trimethoprim Allergy Severe Hives Verified 09/13/20 16:21 Home Medications Medication Instructions Recorded Confirmed Type cetirizine 10 mg capsule 10 mg PO DAILY 07/30/19 09/13/20 History cholecalciferol (vitamin D3) 25 1,000 unit PO DAILY 07/30/19 09/13/20 History mcg (1,000 unit) capsule cyanocobalamin (vitamin B-12) 1,000 mcg PO DAILY 07/30/19 09/13/20 History 1,000 mcg capsule omeprazole 20 mg capsule,delayed 20 mg PO DAILY #90 cap 11/03/19 09/13/20 Rx release hydrochlorothiazide 12.5 mg tablet 12.5 mg PO DAILY #90 tablet 03/13/20 09/13/20 Rx metformin 500 mg tablet,extended 1,000 mg PO BID #180 tablet 04/11/20 09/13/20 Rx release 24 hr levothyroxine 100 mcg tablet 100 mcg PO DAILY #90 tablet 06/09/20 09/13/20 Rx metoprolol tartrate 50 mg tablet 50 mg PO BID #90 tablet 06/12/20 09/13/20 Rx aspirin [Aspir-81] 81 mg PO DAILY 09/13/20 09/13/20 History cranberry extract [cranberry] 250 mg PO DAILY 09/13/20 09/13/20 History diphenhydramine HCl [Benadryl] 25 mg PO HS 09/13/20 09/13/20 History magnesium oxide 500 mg tablet 500 mg PO DAILY 09/13/20 09/13/20 History naproxen 500 mg PO BID PRN 09/13/20 09/13/20 History Current Medications: Active Medications Acetaminophen (Acetaminophen 325 Mg Tablet) 650 mg PO Q4H PRN PRN Reason: Pain Rated 5 or Less Hydrocodone Bitart/Acetaminophen (Hydrocodone/Acetaminophen (*Crx) 5-325 Mg Tablet) 1 tab PO Q4H PRN PRN Reason: Pain Rated 6 or Greater Aspirin (Aspirin 81 Mg Enteric Tablet) 81 mg PO DAILY [facility] Last Admin: 09/14/20 08:36 Dose: 81 mg Documented by: Cyanocobalamin (Cyanocobalamin 1,000 Mcg Tablet) 1,000 mcg PO DAILY [facility] Last Admin: 09/14/20 08:37 Dose: 1,000 mcg Documented by: Dextrose (Dextrose 50% 25 Gm/50 Ml Syringe) 12.5 gm IV PUSH PRN PRN; Protocol PRN Reason: Hypoglycemia Diphenhydramine HCl (Diphenhydramine Hcl Cap 25 Mg Capsule) 25 mg PO [facility] Enoxaparin Sodium (Enoxaparin 40 Mg/0.4 Ml Syringe) 40 mg SUB-Q DAILY [facility] Last Admin: 09/14/20 08:38 Dose: Not Given Documented by: Glucagon (Glucagon For Inj 1 Mg Vial) 1 mg IM PRN PRN; Protocol PRN Reason: Hypoglycemia Glucose (Glucose Oral Gel 15 Gm Of Glucse In 37.5 Gm Tube) 15 gm PO PRN PRN; Protocol PRN Reason: Hypoglycemia Hydrochlorothiazide (Hydrochlorothiazide 12.5 Mg Capsule) 12.5 mg PO DAILY [facility] Last Admin: 09/14/20 08:37 Dose: 12.5 mg Documented by: Dextrose (Dextrose 5% 1,000 Ml) 1,000 mls @ 100 mls/hr IVPB PRN PRN; Protocol PRN Reason: Hypoglycemia Insulin Aspart (Insulin Aspart (*Bkc) 100 Units/Ml) 3 - 6 units SUB-Q TIDWM [facility]; Protocol Last Admin: 09/14/20 08:59 Dose: 4 units Documented by: Levothyroxine Sodium (Levothyroxine Sodium 100 Mcg Tablet) 100 mcg PO DAILY@0630 [facility] Last Admin: 09/14/20 05:57 Dose: 100 mcg Documented by: Loratadine (Loratadine 10 Mg Tablet) 10 mg PO QAM [facility] Last Admin: 09/14/20 08:36 Dose: 10 mg Documented by: Magnesium Oxide (Magnesium Oxide 400 Mg Tablet) 400 mg PO DAILY [facility] Last Admin: 09/14/20 08:36 Dose: 400 mg Documented by: Metformin HCl (Metformin Hcl 500 Mg Tablet) 1,000 mg PO BIDWM [facility] Last Admin: 09/14/20 08:35 Dose: 1,000 mg Documented by: Metoprolol Tartrate (Metoprolol Tartrate 50 Mg Tab) 50 mg PO Q12HR [facility] Last Admin: 09/14/20 08:37 Dose: 50 mg Documented by: Naproxen (Naproxen 500 Mg Tablet) 500 mg PO BIDWM PRN PRN Reason: Pain (Scale Score 4-6) (Cranberry Extract (250 Mg Tablet)) 1 each XX DAILY [facility] Stop: 10/14/20 09:01 Ondansetron HCl (Ondansetron Inj 4 Mg/2 Ml Vial) 4 mg IV PUSH Q4H PRN PRN Reason: Nausea Pantoprazole Sodium (Pantoprazole 40 Mg Tablet) 40 mg PO QAM [facility] Last Admin: 09/14/20 08:38 Dose: 40 mg D
[2020-09-14 13:55] LABS: Glucose Point of Care 197 (65-105)
[2020-09-14 17:22] LABS: Glucose Point of Care 235 (65-105)
--- NOTE | 2020-09-14 17:49 | PC.NURSE ---
RN called radiology, Dr. Lange, to have images of lexiscan read. Images are in scheduled status and can't be dictated or documented until tomorrow. Dr. Lange contacted Dr. Hearn via phone and gave him a verbal preliminary report that showed no ischemia. Patient can be discharged and results can officially be read tomorrow by Nuclear techs tomorrow.
--- NOTE | 2020-09-14 18:09 | PM.DS ---
DS: Admitting Diagnosis Admitting Diagnosis Admitting Diagnosis: Chest pain, left arm pain DS: Discharge Diagnosis Discharge Diagnosis (1) Chest pain: Qualifiers: Chest pain type: unspecified Qualified Code(s): R07.9 - Chest pain, unspecified Code(s): R07.9 - Chest pain, unspecified Status: Acute Assessment and Plan: Date of Admission 09/13/20 Date of Discharge/DOS 09/14/20 Ms. Rao is a pleasant 60yo F with history of hypertension, diabetes, hypothyroidism who presented to the ED for evaluation of left upper chest pain and arm pain. She described pain at her left shoulder radiating up to the left side of her neck, ear, and jaw and radiating down to her left arm with associated numbness and tingling down the left arm. She described the symptoms had been intermittent for a couple weeks, worsened in the last few days prior to arrival. She describes sometimes the pain worsens for no reason, and at other times it is worse with exertion or positional movement. She does have a history of heart catheterization in 2016 which was reportedly normal. She was seen by PCP prior to arrival for evaluation of these symptoms, who performed EKG in the office and advised the patient to proceed to the ED due to EKG changes. She does have multiple risk factors for coronary artery disease including diabetes, hypertension, family history of CAD thus cardiology was consulted and she was admitted to the hospitalist service under observation status to rule out ischemia. She did have minimally elevated troponins at 0.045, flat profile. She was seen by Cardiology, Dr. Howard, and underwent a Lexiscan stress test 09/14/20. Stress testing showed normal myocardial perfusion at rest and during stress, left ventricular EF measuring 76%, no ST changes during exercise. Her symptoms appear to be musculoskeletal in nature and she may be having a left upper extremity radicular pain originating from her neck. C-spine and left shoulder were x-rayed -reports detailed below. She was found to have mild osteoarthritis of the left shoulder, but severe arthritic changes throughout the C-spine which may be the cause of her symptoms. We discussed following up with PCP in short interval to arrange further evaluation and management of the same. She may benefit from C-spine MRI. She may benefit from physical therapy or even possibly referral to a museum informatics specialist depending on MRI results outpatient. She had no difficulty with upper or lower extremity weakness, no ambulatory dysfunction, no other 'red flag' symptoms at this time. She was hemodynamically stable for discharge on 09/14/2020 with instructions to follow-up with PCP and Cardiology. (2) Elevated troponin: Code(s): R77.8 - Other specified abnormalities of plasma proteins Status: Acute Assessment and Plan: 0.045, 0.045, 0.041. Lexiscan stress testing 09/14/2020 demonstrates no concern for ischemia. (3) Radicular pain in left arm: Code(s): M79.2 - Neuralgia and neuritis, unspecified Status: Acute Assessment and Plan: Suspect related to the severe arthritic changes in her neck as demonstrated on x-ray. She will benefit from MRI outpatient, follow-up with PCP. (4) Heart palpitations: Code(s): R00.2 - Palpitations Status: Acute Assessment and Plan: Monitored with cardiac telemetry, no arrhythmia appreciated. See above. (5) Type 2 diabetes mellitus with hyperglycemia: Qualifiers: Diabetes mellitus detention insulin use: without long term care phlebotomist use Qualified Code(s): E11.65 - Type 2 diabetes mellitus with hyperglycemia Code(s): E11.65 - Type 2 diabetes mellitus with hyperglycemia Status: Chronic Assessment and Plan: Blood sugars a bit elevat
--- NOTE | 2020-09-14 18:19 | PC.NURSE ---
Patient is discharging and will take metformin at home.
== END 2020-09-14 19:57 | disposition home or self-care (01) ==
LOC: ANHED 19:23 → ANHIMU 21:00
PROVIDERS: Physician Assistant; Admitting Provider Family Medicine; Emergency Provider Emergency Medicine; PCP Family Medicine; Visit Provider Family Medicine
DX: R07.89 Other chest pain (principal); R77.8 Other specified abnormalities of plasma proteins; R00.2 Palpitations; E03.9 Hypothyroidism, unspecified; E11.65 Type 2 diabetes mellitus with hyperglycemia; G47.33 Obstructive sleep apnea (adult) (pediatric); I10 Essential (primary) hypertension; K21.9 Gastro-esophageal reflux disease without esophagitis; M15.9 Polyosteoarthritis, unspecified; M79.2 Neuralgia and neuritis, unspecified; M47.812 Spondylosis without myelopathy or radiculopathy, cervical region; Z79.84 Long term (current) use of oral hypoglycemic drugs; Z96.651 Presence of right artificial knee joint
CPT/HCPCS: 36415; 71046; 72040; 73030; 78452; 80048; 84484; 85025; 85610; 85730; 93005; 93017; 99285; A9270; A9502; G0378; J1815; J2785

== ENCOUNTER 2020-10-25 10:38 | Outpatient (CLI) | payer BC, SELFPAY ==
--- NOTE | ~2020-10-25 | XR_ITS ---
EXAMINATION: XR abdomen/kub 1V INDICATION: Calcium kidney stone TECHNIQUE: Supine views of the abdomen were obtained on 2 radiographs. COMPARISON: 06/01/2020 FINDINGS: There has been interval decrease in size of a stone/cluster of stones in the left kidney lo wer pole. An 8 mm stone persists. No stones are identified along the expected course of the left uret er. There are multiple phleboliths of the pelvis. The bowel gas pattern is normal. Surgical clips in the right upper quadrant are likely from prior cholecystectomy. IMPRESSION: 1. Interval decrease in size of stones in the left kidney lower pole, likely due to interval lithotri psy, with persistent 8 mm stone in the left kidney lower pole. Reviewed, dictated and finalized at location A. [facility] [employer] IMPRESSION: 1. Interval decrease in size of stones in the left kidney lower pole, likely du e to interval lithotripsy, with persistent 8 mm stone in the left kidney lower pole.
== END 2020-10-25 10:39 | disposition home or self-care (01) ==
PROVIDERS: PCP Family Medicine; Visit Provider Urology
DX: N20.0 Calculus of kidney (principal)
CPT/HCPCS: 74018

== ENCOUNTER 2020-11-23 08:57 | Outpatient (CLI) | payer BC, SELFPAY ==
[2020-11-23 09:32] LABS: INR 0.9; Prothrombin Time 12.5 Seconds (11.1-14.7)
[2020-11-23 09:33] LABS: Partial Thromboplastin Time 31.2 SECONDS (22.3-36.8)
[2020-11-23 09:36] LABS: Anion Gap 12 mmol/L (8-16); Blood Urea Nitrogen 19 mg/dL (7-17); Calcium 9.3 mg/dL (8.4-10.2); Carbon Dioxide 29 mmol/L (22-30); Chloride 97 mmol/L (98-107); Estimated Glomerular Filt Rate > 60; Glucose 350 mg/dL (65-105); Sodium 138 mmol/L (137-145)
== END 2020-11-23 08:58 | disposition home or self-care (01) ==
LOC: ANHSURGERY 09:00
PROVIDERS: Anesthesiology; PCP Family Medicine; Visit Provider Urology
DX: N20.0 Calculus of kidney (principal); E11.65 Type 2 diabetes mellitus with hyperglycemia; Z79.899 Other long term (current) drug therapy; Z01.818 Encounter for other preprocedural examination
CPT/HCPCS: 36415; 80048; 85610; 85730; 87086; 87088

== ENCOUNTER → 2020-11-28 00:49 | Outpatient (CLI) | payer BC, SELFPAY ==
[2020-11-28 20:45] LABS: SARS-CoV-2 RNA PCR Negative
== END ==
PROVIDERS: PCP Family Medicine; Visit Provider Urology
DX: Z01.812 Encounter for preprocedural laboratory examination (principal); Z20.822 Contact with and (suspected) exposure to COVID-19
CPT/HCPCS: C9803; U0003; U0005

== ENCOUNTER 2020-12-01 01:15 | Day surgery (SDC) | payer BC, SELFPAY ==
[2020-11-22 14:37] VITALS: BMI 31.8
--- NOTE | 2020-11-30 12:48 | WPDANESEPP ---
Anes - Eval Pre Procedure Procedure: Operation Date: 12/01/20 07:30 Proposed Procedures p Left Extracorporeal Shock Wave Lithotripsy - Parminder Harrison MD Date/Time: 11/30/20 12:48 Pre Op Diagnosis: Left Kidney Stone Patient Data Age: 60 Gender: F Height: 1.73 m Weight: 95.2 kg Allergies Allergy/AdvReac Type Severity Reaction Status Date / Time Penicillins Allergy Severe Hives Verified 11/22/20 15:02 sulfamethoxazole Allergy Severe Hives Verified 11/22/20 15:02 [From ] trimethoprim [From ] Allergy Severe Hives Verified 11/22/20 15:02 Home Medications Medication Instructions Recorded Confirmed Type cetirizine 10 mg capsule 10 mg PO DAILY 07/30/19 11/22/20 History cholecalciferol (vitamin D3) 25 1,000 unit PO DAILY 07/30/19 11/22/20 History mcg (1,000 unit) capsule cyanocobalamin (vitamin B-12) 1,000 mcg PO DAILY 07/30/19 11/22/20 History 1,000 mcg capsule levothyroxine 100 mcg tablet 100 mcg PO DAILY #90 tablet 06/09/20 11/22/20 Rx metoprolol tartrate 50 mg tablet 50 mg PO BID #90 tablet 06/12/20 11/22/20 Rx aspirin 81 mg PO DAILY 09/13/20 11/22/20 History diphenhydramine HCl [Benadryl] 25 mg PO HS PRN 09/13/20 11/22/20 History magnesium oxide 500 mg tablet 500 mg PO DAILY 09/13/20 11/22/20 History naproxen 500 mg PO BID PRN 09/13/20 11/22/20 History hydrochlorothiazide 12.5 mg PO DAILY 11/22/20 11/22/20 History omeprazole 20 mg capsule,delayed 20 mg PO DAILY #90 cap 11/22/20 11/22/20 Rx release metformin 500 mg tablet,extended See Rx Instructions .ROUTE 11/27/20 Rx release 24 hr .COMPLEX #180 tablet Patient hx anesthesia problems: post op nausea/vomiting Family hx anesthesia problems: none PMFSH Past Medical History Medical History Calcium kidney stones Diabetes mellitus Essential (primary) hypertension Gastro-esophageal reflux disease without esophagitis History of esophageal dilatation due to esophageal spasm Hyperthyroidism with history of radioactive iodine treatment Loose right total knee arthroplasty Obstructive sleep apnea Palpitations Postablative hypothyroidism Vitamin D deficiency Surgical History Surgical History H/O: hysterectomy History of appendectomy History of bilateral carpal tunnel release History of bladder suspension procedure History of cardiac catheterization April 2016 Hx of cholecystectomy Hx of tonsillectomy Knee joint replacement status 2019 S/P cystoscopy with ureteral stent placement left renal stone 05/2020 Status post radioactive iodine thyroid ablation Family History Family History Father Diabetes mellitus Hypertension Heart disease CHF (congestive heart failure) Hearing loss Hyperlipidemia Sibling Migraines Mother Hypertension Cataract Glaucoma Skin cancer Osteoarthritis Heart disease Social History Social History Social History: 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 She lives in [facility] with her of 35 years. They have 1 cat. She has 2 adult children are healthy. Smoking status: Never smoker Second hand tobacco smoke exposure: No Alcohol intake: never Substance use: never Gender identity (if verbalized by the patient): Female Spiritual care concerns: No Agree to blood products: Yes Exam Day of Procedure 11/30/20 12:48
[2020-12-01] VITALS (7 sets, daily range): BP systolic 104–123; BP diastolic 63–72; PULSE 70–74; RESP 12–20; TEMP 36.2; O2SAT 94–99; BMI 32.4
--- NOTE | ~2020-12-01 | XR_ITS ---
EXAMINATION: XR abdomen/kub 1V EXAM DATE: 12/01/2020 06:18 INDICATION: For lithotripsy. TECHNIQUE: Frontal projection of the upper abdomen, frontal projection lower abdomen/pelvis for inter pretation. Comparison is made to prior examination from 10/25/2020. FINDINGS: Several calcific densities projecting over lower pole left kidney appear unchanged, nephrol ithiasis. This is been indicated. Stool is obscuring the pelvis and inferior pole of the right kidney . There are cholecystectomy clips. There is mild to moderate symmetric bilateral hip primary osteoart hritis. IMPRESSION: 1. Left nephrolithiasis. Reviewed, dictated and finalized at location A. IMPRESSION: 1. Left nephrolithiasis.
[2020-12-01] MEDS: LACTATED RINGERS 1,000 ML 30 ML IV CONT ×2 (07:00→08:18)
--- NOTE | 2020-12-01 07:07 | WPDANESEPPF ---
Anes - Initial Pre Proc Eval Procedure: Operation Date: 12/01/20 07:30 Proposed Procedures p Left Extracorporeal Shock Wave Lithotripsy - Parminder Harrison MD Date/Time: 12/01/20 07:07 Surgeon: Parminder Harrison MD Pre Op Diagnosis: Left Kidney Stone Patient Data Age: 60 Gender: F Height: 5 ft 8 in Weight: 95.2 kg Last Vital Signs Temp 36.2 C L 12/01/20 06:30 Pulse 71 12/01/20 06:30 Resp 16 12/01/20 06:30 BP 117/71 12/01/20 06:30 Pulse Ox 98 12/01/20 06:30 Allergies Allergy/AdvReac Type Severity Reaction Status Date / Time Penicillins Allergy Severe Hives Verified 12/01/20 06:40 sulfamethoxazole Allergy Severe Hives Verified 12/01/20 06:40 [From ] trimethoprim [From ] Allergy Severe Hives Verified 12/01/20 06:40 Home Medications Medication Instructions Recorded Confirmed Type cetirizine 10 mg capsule 10 mg PO DAILY 07/30/19 11/22/20 History cholecalciferol (vitamin D3) 25 1,000 unit PO DAILY 07/30/19 12/01/20 History mcg (1,000 unit) capsule cyanocobalamin (vitamin B-12) 1,000 mcg PO DAILY 07/30/19 12/01/20 History 1,000 mcg capsule levothyroxine 100 mcg tablet 100 mcg PO DAILY #90 tablet 06/09/20 12/01/20 Rx metoprolol tartrate 50 mg tablet 50 mg PO BID #90 tablet 06/12/20 12/01/20 Rx aspirin 81 mg PO DAILY 09/13/20 12/01/20 History diphenhydramine HCl [Benadryl] 25 mg PO HS PRN 09/13/20 11/22/20 History magnesium oxide 500 mg tablet 500 mg PO DAILY 09/13/20 11/22/20 History naproxen 500 mg PO BID PRN 09/13/20 12/01/20 History hydrochlorothiazide 12.5 mg PO DAILY 11/22/20 11/22/20 History omeprazole 20 mg capsule,delayed 20 mg PO DAILY #90 cap 11/22/20 11/22/20 Rx release metformin 500 mg tablet,extended See Rx Instructions .ROUTE 11/27/20 Rx release 24 hr .COMPLEX #180 tablet Patient hx anesthesia problems: post op nausea/vomiting Family hx anesthesia problems: none PMFSH Past Medical History Medical History Calcium kidney stones Diabetes mellitus Essential (primary) hypertension Gastro-esophageal reflux disease without esophagitis History of esophageal dilatation due to esophageal spasm Hyperthyroidism with history of radioactive iodine treatment Loose right total knee arthroplasty Obstructive sleep apnea Palpitations Postablative hypothyroidism Vitamin D deficiency Surgical History Surgical History H/O: hysterectomy History of appendectomy History of bilateral carpal tunnel release History of bladder suspension procedure History of cardiac catheterization April 2016 Hx of cholecystectomy Hx of tonsillectomy Knee joint replacement status 2019 S/P cystoscopy with ureteral stent placement left renal stone 05/2020 Status post radioactive iodine thyroid ablation Family History Family History Father Diabetes mellitus Hypertension Heart disease CHF (congestive heart failure) Hearing loss Hyperlipidemia Sibling Migraines Mother Hypertension Cataract Glaucoma Skin cancer Osteoarthritis Heart disease Social History Social History Social History: 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 They have 1 cat. She has 2 adult children are healthy. Smoking status: Never smoker Second hand tobacco smoke exposure: No Alcohol intake: never Substance use: never Living arrangements: with family Gender identity (if verbalized by the patient): Female Spiritual care concerns: No Agree to blood products: Yes Anes - Eval Final PreProcedure Day of Procedure 12/01/20 07:07 Patient weight: obese Heart: regular rate and rhythm Lungs: clear to auscultation Airway: Mallampati scale class II Neurological: alert and orie
--- NOTE | 2020-12-01 07:10 | SUR.PREOP ---
0710- Notified Dr. Judd patient's BG 260 at this time. Patient takes Metformin 1000MG with last dose taken 11/30/2020. Per Dr. Judd no intervention at this time. Patient to follow up with PCP and patient made aware of plan.
[2020-12-01 07:14] LABS: Glucose Point of Care 260 (65-105)
[2020-12-01] MEDS: SCOPOLAMINE 1.5 MG PATCH TRANSDERM (07:16)
--- NOTE | 2020-12-01 07:29 | WPDHPUPDATE1 ---
History and Physical Update Update Date/Time: 12/01/20 07:29 History and Physical has been reviewed, including an updated exam of the patient. There are NO changes in the patient's condition. Risks, benefits, and alternatives have been discussed and questions answered. Patient agrees to proceed with procedure. eswl left renal calculus
[2020-12-01] MEDS: levoFLOXacin 500 MG/D5W 100 ML 500 MG/100 ML BAG 100 MG IVPB (07:46)
--- NOTE | 2020-12-01 08:12 | P.OP_ITS ---
Procedure Note - Detailed Date of procedure: 12/01/20 Pre-op diagnosis: Left Kidney Stone Post-op diagnosis: same Procedure performed: ESWL of left renal calculus Description of procedure: Patient is taken the operative suite and correctly luis ntified. Once anesthesia was obtained the stone was localized in both planes. Two thousand five hundred shocks were given to the stone. Patient tolerated procedure well without any complications taken recovery stable condition. She will follow up in 10-14 days with a KUB. Anesthesia: GLMA Surgeon: Parminder Harrison MD Drains: No Packing: No Pathology: none sent Complications: No immediate complications Condition: stable Disposition: PACU
[2020-12-01 09:10] LABS: Glucose Point of Care 249 (65-105)
== END 2020-12-01 09:45 | disposition home or self-care (01) ==
PROVIDERS: PCP Family Medicine; Visit Provider Urology
PROC: (CPT 50590; principal; 2020-12-01 07:30)
DX: N20.0 Calculus of kidney (principal); E03.9 Hypothyroidism, unspecified; Z79.82 Long term (current) use of aspirin; Z79.84 Long term (current) use of oral hypoglycemic drugs; E11.9 Type 2 diabetes mellitus without complications; K21.9 Gastro-esophageal reflux disease without esophagitis; G47.33 Obstructive sleep apnea (adult) (pediatric); R00.2 Palpitations; E55.9 Vitamin D deficiency, unspecified; E66.9 Obesity, unspecified; Z68.32 Body mass index [BMI] 32.0-32.9, adult; I10 Essential (primary) hypertension
CPT/HCPCS: 50590; 36415; 74018; 80048; 82948; 85610; 85730; 87086; 87088; A9270; C9803; J0131; J1100; J1956; J2250; J2405; J2704; J3010; J7120; U0003; U0005

== ENCOUNTER 2020-12-13 08:54 | Outpatient (CLI) | payer BC, SELFPAY ==
--- NOTE | ~2020-12-13 | XR_ITS ---
XR abdomen/kub 1V 12/13/2020 09:11 Indication: Left renal stones Procedure: KUB Comparison: 12/01/2020 Findings: There are clustered stones in the lower pole of the left kidney. Bowel gas pattern is nonob structive with moderate colonic fecal loading. There are cholecystectomy clips. There is mild dextros coliosis of the lumbar spine. There are pelvic phleboliths unchanged. Impression: 1: Left nephrolithiasis. Reviewed, dictated and finalized at location B. Impression: 1: Left nephrolithiasis.
== END 2020-12-13 08:55 | disposition home or self-care (01) ==
PROVIDERS: PCP Family Medicine; Visit Provider Urology
DX: N20.0 Calculus of kidney (principal)
CPT/HCPCS: 74018

== ENCOUNTER 2021-02-14 09:37 | Outpatient (CLI) | payer BC, SELFPAY ==
--- NOTE | ~2021-02-14 | XR_ITS ---
EXAMINATION: XR abdomen/kub 1V INDICATION: Calcium kidney stone TECHNIQUE: Supine views of the abdomen were obtained on 2 radiographs. COMPARISON: 12/13/2020 FINDINGS: Stones measuring 6 mm and 2 mm project over the lower pole of the left kidney. Bowel conten ts project over the kidneys limiting sensitivity for renal stones. Surgical clips in the right upper quadrant are likely from prior cholecystectomy. There are phleboliths of the pelvis. Mild to moderate hip osteoarthritis is noted. IMPRESSION: 1. Stable left nephrolithiasis. Reviewed, dictated and finalized at location B.
== END 2021-02-14 09:38 | disposition home or self-care (01) ==
LOC: ANHIMG 09:40
PROVIDERS: PCP Family Medicine; Visit Provider Urology
DX: N20.0 Calculus of kidney (principal)
CPT/HCPCS: 74018

== ENCOUNTER 2021-03-28 08:49 | Outpatient (CLI) | payer BC, SELFPAY ==
--- NOTE | ~2021-03-28 | MM_ITS ---
EXAMINATION: MM screening shade BI w cara HISTORY: Screening TECHNIQUE: Craniocaudal and mediolateral oblique 3-D tomosynthesis images were obtained and synthetic 2-D images were generated. CAD analysis was submitted and interpreted. COMPARISON: Comparison to multiple prior studies sequentially, with oldest reviewed study dated 04/08. BREAST PARENCHYMAL COMPOSITION: There are scattered areas of fibroglandular density. FINDINGS: There is no evidence of suspicious mass, calcification, or architectural distortion to sugg est malignancy in either breast. There has been no suspicious interval change. IMPRESSION: 1. No mammographic evidence of malignancy. 2. Recommend routine screening mammography in one year. BI-RADS Category 1: Negative Reviewed, dictated and finalized at location A.
== END 2021-03-28 08:50 | disposition home or self-care (01) ==
PROVIDERS: PCP Family Medicine; Visit Provider Family Medicine
DX: Z12.31 Encounter for screening mammogram for malignant neoplasm of breast (principal)
CPT/HCPCS: 77063; 77067

== ENCOUNTER 2021-04-03 01:48 | Day surgery (SDC) | payer BC, SELFPAY ==
[2021-03-29 14:23] VITALS: BMI 31.1
[2021-04-03 08:28] VITALS: BP 123/73; PULSE 70; RESP 18; TEMP 35.8; O2SAT 97; BMI 32.1
[2021-04-03] MEDS: LACTATED RINGERS 1,000 ML 150 ML IV CONT (08:46)
[2021-04-03 08:49] LABS: Glucose Point of Care 317 mg/dl (65-105)
--- NOTE | 2021-04-03 09:00 | SUR.PREOP ---
0900- DR. HEADLEY AWARE OF BLOOD GLUCOSE OF 317. PT ASYMPTOMATIC. NO FURTHER ORDERS.
--- NOTE | 2021-04-03 09:00 | WPDGICN ---
Assessment and Plan Assessment and plan (1) Dysphagia: Code(s): R13.10 - Dysphagia, unspecified Status: Acute Assessment and Plan: Patient has recurrent difficulty swallowing. Has a history of esophageal web dilated 2016. [place] to have underlying acid reflux now clinically controlled by omeprazole 20 mg p.o. daily. Plan is for EGD to assess swallowing difficulties. Possible dilatation. Further recommendations may be given after endoscopy. GI Consult Note Consult date/time: 04/03/21 09:00 HPI: Aundrea Rao is a 61 year old female complains of difficulty swallowing. For the last several months patient notes food catching in the mid substernal portion of the chest. Sometimes pills will fail to pass into her stomach. She does notice occasional discomfort. Patient has a history of esophageal web dilated in 2016. She is felt to have underlying acid reflux disease. At home medications include omeprazole 20 mg p.o. daily. She denies overt heartburn. She denies any weight loss she has had no bleeding. Patient presents today for EGD to assess swallowing difficulties. Patient has a history of a colonoscopy 2012 that was unremarkable. Review of Systems Review of Systems: All systems reviewed & are unremarkable except as noted in HPI and below PMFSH Past Medical History Medical History (Updated 03/20/21 @ 08:18 by Wander Howell MD) Calcium kidney stones Chest pain Diabetes mellitus Elevated troponin Essential (primary) hypertension Gastro-esophageal reflux disease without esophagitis Heart palpitations History of esophageal dilatation due to esophageal spasm Hyperthyroidism with history of radioactive iodine treatment Hypothyroidism (acquired) Loose right total knee arthroplasty Obstructive sleep apnea Palpitations Postablative hypothyroidism Radicular pain in left arm Vitamin D deficiency Surgical History Surgical History H/O: hysterectomy History of appendectomy History of bilateral carpal tunnel release History of bladder suspension procedure History of cardiac catheterization April 2016 Hx of cholecystectomy Hx of tonsillectomy Knee joint replacement status 2019 S/P cystoscopy with ureteral stent placement left renal stone 05/2020 Status post radioactive iodine thyroid ablation Family History Family History Father Diabetes mellitus CHF (congestive heart failure) Hearing loss Hyperlipidemia Hypertension Heart disease Sibling Migraines Mother Osteoarthritis Heart disease Hypertension Cataract Glaucoma Skin cancer Social History Social History Social History: She works in [employer] for [employer]. She lives in [facility] with her of 35 years. They have 1 cat. She has 2 adult children are healthy. Smoking status: Never smoker Second hand tobacco smoke exposure: No Alcohol intake: never Substance use: never Substance use type: does not use Living arrangements: with family Gender identity (if verbalized by the patient): Female Spiritual care concerns: No Agree to blood products: Yes Meds Home Medications and Allergies Home Medications Medication Instructions Recorded Confirmed Type cetirizine 10 mg capsule 10 mg PO DAILY 07/30/19 04/03/21 History cyanocobalamin (vitamin B-12) 1,000 mcg PO DAILY 07/30/19 04/03/21 History 1,000 mcg capsule aspirin 81 mg PO DAILY 09/13/20 04/03/21 History diphenhydramine HCl [Benadryl] 50 mg PO HS PRN 09/13/20 04/03/21 History naproxen 500 mg PO BID PRN 09/13/20 04/03/21 History omeprazole 20 mg capsule,delayed 20 mg PO DAILY #90 cap 11/22/20 04/03/21 Rx release hydrochlorothiazide 12.5 mg tablet See Rx Instructions .ROUTE 01/02/21 04/03/21 Rx .COMPLEX #90 tablet levothyroxine 112 mcg tablet 112 mcg P
--- NOTE | 2021-04-03 09:15 | WPDANESEPPF ---
Anes - Initial Pre Proc Eval Procedure: Operation Date: 04/03/21 09:45 Proposed Procedures p Esophagogastroduodenoscopy - Geoffrey Fishman MD Date/Time: 04/03/21 09:15 Surgeon: Geoffrey Fishman MD Pre Op Diagnosis: dysphagia Patient Data Age: 61 Gender: F Height: 1.73 m Weight: 95.9 kg Last Vital Signs Temp 96.4 F L 04/03/21 08:28 Pulse 70 04/03/21 08:28 Resp 18 04/03/21 08:28 BP 123/73 04/03/21 08:28 Pulse Ox 97 04/03/21 08:28 Allergies Allergy/AdvReac Type Severity Reaction Status Date / Time Penicillins Allergy Severe Hives Verified 04/03/21 08:35 sulfamethoxazole Allergy Severe Hives Verified 04/03/21 08:35 [From ] trimethoprim [From ] Allergy Severe Hives Verified 04/03/21 08:35 Home Medications Medication Instructions Recorded Confirmed Type cetirizine 10 mg capsule 10 mg PO DAILY 07/30/19 04/03/21 History cyanocobalamin (vitamin B-12) 1,000 mcg PO DAILY 07/30/19 04/03/21 History 1,000 mcg capsule aspirin 81 mg PO DAILY 09/13/20 04/03/21 History diphenhydramine HCl [Benadryl] 50 mg PO HS PRN 09/13/20 04/03/21 History naproxen 500 mg PO BID PRN 09/13/20 04/03/21 History omeprazole 20 mg capsule,delayed 20 mg PO DAILY #90 cap 11/22/20 04/03/21 Rx release hydrochlorothiazide 12.5 mg tablet See Rx Instructions .ROUTE 01/02/21 04/03/21 Rx .COMPLEX #90 tablet levothyroxine 112 mcg tablet 112 mcg PO DAILY #90 tablet 01/03/21 04/03/21 Rx metronidazole 0.75 % topical cream 1 applic TOPICAL QHS #45 g 03/19/21 04/03/21 Rx terbinafine HCl 250 mg tablet 250 mg PO DAILY #84 tablet 03/19/21 04/03/21 Rx Metamucil 1 cap PO DAILY 03/29/21 04/03/21 History Stool Softener 1 cap PO DAILY 03/29/21 04/03/21 History cholecalciferol (vitamin D3) 50 mcg PO DAILY 03/29/21 04/03/21 History [Vitamin D3] magnesium 250 mg PO DAILY 03/29/21 04/03/21 History metformin 1,000 mg PO BID 03/29/21 04/03/21 History metoprolol tartrate 50 mg PO BID 03/29/21 04/03/21 History potassium 99 mg PO DAILY 03/29/21 04/03/21 History Laboratory Tests 04/03/21 08:42 POC Capillary Glucose 317 mg/dl H mg/dl (65-105) Patient hx anesthesia problems: none Family hx anesthesia problems: none PMFSH Past Medical History Medical History (Updated 03/20/21 @ 08:18 by Wander Howell MD) Calcium kidney stones Chest pain Diabetes mellitus Elevated troponin Essential (primary) hypertension Gastro-esophageal reflux disease without esophagitis Heart palpitations History of esophageal dilatation due to esophageal spasm Hyperthyroidism with history of radioactive iodine treatment Hypothyroidism (acquired) Loose right total knee arthroplasty Obstructive sleep apnea Palpitations Postablative hypothyroidism Radicular pain in left arm Vitamin D deficiency Surgical History Surgical History H/O: hysterectomy History of appendectomy History of bilateral carpal tunnel release History of bladder suspension procedure History of cardiac catheterization April 2016 Hx of cholecystectomy Hx of tonsillectomy Knee joint replacement status 2019 S/P cystoscopy with ureteral stent placement left renal stone 05/2020 Status post radioactive iodine thyroid ablation Family History Family History Father Diabetes mellitus CHF (congestive heart failure) Hearing loss Hyperlipidemia Hypertension Heart disease Sibling Migraines Mother Osteoarthritis Heart disease Hypertension Cataract Glaucoma Skin cancer Social History Social History Social History: 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 She lives in [facility] with her of 35 years. They have 1 cat. She has 2 adult children are healthy. Smoking status: Never smoker Second hand tobacco smoke exposure: No Alcohol intake: never Substance use:
[2021-04-03 09:41] VITALS: BP 108/66; PULSE 69; RESP 16; O2SAT 98
[2021-04-03 09:51] VITALS: BP 116/70; PULSE 63; RESP 18; O2SAT 97
[2021-04-03 10:01] VITALS: BP 112/70; PULSE 67; RESP 19; O2SAT 98
== END 2021-04-03 10:15 | disposition home or self-care (01) ==
PROVIDERS: PCP Family Medicine; Visit Provider Internal Medicine Gastroenterology
PROC: 0DJ08ZZ Inspection of Upper Intestinal Tract, Via Natural or Artificial Opening Endoscopic (ICD-10-PCS; CPT 43235; principal; 2021-04-03 09:45)
DX: R13.10 Dysphagia, unspecified (principal); Q39.4 Esophageal web; K21.9 Gastro-esophageal reflux disease without esophagitis; I10 Essential (primary) hypertension; E11.9 Type 2 diabetes mellitus without complications; E05.90 Thyrotoxicosis, unspecified without thyrotoxic crisis or storm; E03.9 Hypothyroidism, unspecified; E55.9 Vitamin D deficiency, unspecified; G47.33 Obstructive sleep apnea (adult) (pediatric); Z90.710 Acquired absence of both cervix and uterus; Z90.49 Acquired absence of other specified parts of digestive tract; Z96.659 Presence of unspecified artificial knee joint
CPT/HCPCS: 43235; 43450; 82948; J2001; J2704; J7120

== ENCOUNTER 2021-06-06 08:57 | Outpatient (CLI) | payer BC, SELFPAY ==
--- NOTE | ~2021-06-06 | XR_ITS ---
XR abdomen/kub 1V 06/06/2021 09:13 Indication: Renal stones Procedure: KUB Comparison: Comparison to multiple prior studies sequentially, with oldest reviewed study dated 03/14. Findings: Bowel gas pattern nonobstructive with moderate colonic fecal loading. There are stones over lying the lower pole of the left kidney. There are cholecystectomy clips. No acute osseous abnormalit y. Mild dextrocurvature of the lumbar spine. Impression: 1: No significant change to left nephrolithiasis. Reviewed, dictated and finalized at location B. Impression: 1: No significant change to left nephrolithiasis.
== END 2021-06-06 08:58 | disposition home or self-care (01) ==
LOC: ANHIMG 09:00
PROVIDERS: PCP Family Medicine; Visit Provider Urology
DX: N20.0 Calculus of kidney (principal)
CPT/HCPCS: 74018

== ENCOUNTER 2021-06-26 11:32 | Outpatient (CLI) | payer BC, SELFPAY ==
[2021-06-26 12:18] LABS: Prothrombin Time 12.6 Seconds (11.1-14.7)
[2021-06-26 12:19] LABS: Partial Thromboplastin Time 31.5 SECONDS (22.3-36.8)
== END 2021-06-26 11:33 | disposition home or self-care (01) ==
LOC: ANHSURGERY 11:36
PROVIDERS: PCP Family Medicine; Visit Provider Urology
DX: N20.0 Calculus of kidney (principal); Z01.818 Encounter for other preprocedural examination
CPT/HCPCS: 36415; 85610; 85730; 87086; 87088

== ENCOUNTER 2021-06-29 02:52 | Day surgery (SDC) | payer BC, SELFPAY ==
[2021-06-25 13:03] VITALS: BMI 31.9
--- NOTE | 2021-06-25 13:15 | PC.NURSE ---
Report to the Outpatient Waiting Room, entrance under the green pavilion located off [facility], at time 7:30 on date 06/29/21. OR Time: 9:30. - You and your visitor will be asked a series of questions to screen for COVID 19 for your protection. - A mask is required within the hospital. - Only one visitor is allowed at this time. Patient visitors will be guided where to wait when not with patient. Preoperative COVID Testing Requirements: No COVID Test needed if: (proof is required; if not received patient will have Rapid Test prior to entry) - Patient has received COVID Vaccine at least 14 days prior to procedure date or - Patient has positive COVID test result within last 90 days of surgery date. COVID Test needed if above criteria is not met If not COVID vaccinated a COVID test must be conducted within 72 hours of surgery and patient is asked to isolate self from time of testing until procedure. You will go to the [facility] for your COVID testing. The [facility] is located at the corner of [address] [facility]. You will only be called if COVID results are positive and your surgeon may reschedule your elective surgery date. Patients may have clear liquids (water, carbonated beverages, clear teas, apple juice) until 3 hours prior to surgery with a maximum of 20 ounces. - No food from midnight until time of surgery - Infants may have breast milk until 4 hours before surgery, infant formula 6 hours prior to surgery. - Children will be allowed to drink immediately following surgery. If applicable, please bring a bottle or sippy cup to assist with drinking. Juice, water, soda, and popsicles are readily available. For infants on formula, please bring formula the day of surgery. Pacifiers are allowed. Take the following medications with a SIP of water the morning of surgery: LEVOTHYROXINE, METOPROLOL Medications to discontinue per physician: VITAMINS/SUPPLEMENTS, NAPROXEN Date to take last dose: PER DR. COLLINS Please no make-up, nail armenian, hairspray, perfume, deodorant, or body powder the day of surgery. No jewelry (including any body piercings) or valuables the day of surgery, leave them at home. Please take a shower or bath the night before, or the morning of, surgery with an antibacterial soap. Wear comfortable, loose fitting clothing. Children are encouraged to wear pajamas. - Jewelry must be removed prior to entering the operating room. Rings and piercings that are not removed may be cut off. - The hospital will not accept responsibility for valuables. - Please leave all valuables, including medications, at home the day of surgery. If you are going home after surgery, a licensed buggy driver must drive you home. - NO public transportation without another adult. - We recommend that an adult stay with you for 24 hours following discharge. - We also recommend that you do not drive, make important decision, drink alcoholic beverages, or take any drugs that were not prescribed by your health care provider for at least 24 hours after your discharge time. For Pediatric surgeries, we recommend two adults accompany the child home (only one inside the building at this time). Follow any additional instructions given to you from your surgeon. Telephone instructions given to MALATHI RANDLE and asked if any additional questions and then verbalized understanding. Patient advised to call surgeon office or pre surgery nurse liaison [phone] if any additional questions.
--- NOTE | ~2021-06-29 | XR_ITS ---
EXAMINATION: XR abdomen/kub 1V DATE: 06/29/2021 07:39 INDICATION: Kidney stone. TECHNIQUE: A supine view of the abdomen on 2 radiographs was obtained. COMPARISON: Abdomen radiographs 06/06/2021, CT abdomen and pelvis 03/14/2020 FINDINGS: There are no dilated loops of bowel. There are phleboliths in the pelvis. There are approxi mately 5 stones in left kidney lower pole measuring up to 4 mm. IMPRESSION: 1. Left kidney stones. Reviewed, dictated and finalized at location A. DRIVER IMPRESSION: 1. Left kidney stones.
[2021-06-29 08:00] VITALS: BP 123/76; PULSE 70; RESP 16; TEMP 36.1; O2SAT 99
[2021-06-29] MEDS: LACTATED RINGERS 1,000 ML 30 ML IV CONT (08:00)
--- NOTE | 2021-06-29 08:11 | WPDANESEPPF ---
Anes - Initial Pre Proc Eval Procedure: Operation Date: 06/29/21 09:30 Proposed Procedures p Left Renal Extracorporeal Shock Wave Lithotripsy - Parminder Harrison MD Date/Time: 06/29/21 08:11 Surgeon: Parminder Harrison MD Pre Op Diagnosis: left renal stone Patient Data Age: 61 Gender: F Height: 1.73 m Weight: 95.25 kg Allergies Allergy/AdvReac Type Severity Reaction Status Date / Time Penicillins Allergy Severe Hives Verified 06/25/21 13:00 sulfamethoxazole Allergy Severe Hives Verified 06/25/21 13:00 [From ] trimethoprim [From ] Allergy Severe Hives Verified 06/25/21 13:00 Home Medications Medication Instructions Recorded Confirmed Type cetirizine 10 mg capsule 10 mg PO DAILY 07/30/19 06/25/21 History cyanocobalamin (vitamin B-12) 1,000 mcg PO DAILY 07/30/19 06/25/21 History 1,000 mcg capsule diphenhydramine HCl [Benadryl] 50 mg PO HS PRN 09/13/20 06/25/21 History naproxen 500 mg PO BID PRN 09/13/20 06/25/21 History omeprazole 20 mg capsule,delayed 20 mg PO DAILY #90 cap 11/22/20 06/25/21 Rx release hydrochlorothiazide 12.5 mg tablet See Rx Instructions .ROUTE 01/02/21 06/25/21 Rx .COMPLEX #90 tablet levothyroxine 112 mcg tablet 112 mcg PO DAILY #90 tablet 01/03/21 06/25/21 Rx metronidazole 0.75 % topical cream 1 applic TOPICAL QHS #45 g 03/19/21 06/25/21 Rx cholecalciferol (vitamin D3) 50 mcg PO DAILY 03/29/21 06/25/21 History [Vitamin D3] glimepiride 2 mg tablet 2 mg PO QAM #30 tablet 05/08/21 06/25/21 Rx losartan 50 mg tablet 50 mg PO DAILY #30 tablet 05/08/21 06/25/21 Rx lovastatin 40 mg tablet 40 mg PO DAILY #30 tablet 05/08/21 06/25/21 Rx metformin 500 mg tablet,extended See Rx Instructions .ROUTE 05/28/21 06/25/21 Rx release 24 hr .COMPLEX #180 tablet metoprolol tartrate 50 mg tablet 50 mg PO BID #180 tablet 06/18/21 06/25/21 Rx Patient hx anesthesia problems: post op nausea/vomiting Family hx anesthesia problems: none Results Review: All pre-operative results and documents have been reviewed as part of the pre-operative evaluation. [facility] Past Medical History Medical History Calcium kidney stones Chest pain Diabetes mellitus Elevated troponin Essential (primary) hypertension Gastro-esophageal reflux disease without esophagitis Heart palpitations History of esophageal dilatation due to esophageal spasm Hyperthyroidism with history of radioactive iodine treatment Hypothyroidism (acquired) Loose right total knee arthroplasty Obstructive sleep apnea Palpitations Postablative hypothyroidism Radicular pain in left arm Vitamin D deficiency Surgical History Surgical History H/O: hysterectomy History of appendectomy History of bilateral carpal tunnel release History of bladder suspension procedure History of cardiac catheterization April 2016 Hx of cholecystectomy Hx of tonsillectomy Knee joint replacement status 2019 S/P cystoscopy with ureteral stent placement left renal stone 05/2020 Status post radioactive iodine thyroid ablation Family History Family History Father Diabetes mellitus CHF (congestive heart failure) Hearing loss Hyperlipidemia Hypertension Heart disease Sibling Migraines Mother Osteoarthritis Heart disease Hypertension Cataract Glaucoma Skin cancer Social History Social History Social History: 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 They have 1 cat. She has 2 adult children are healthy. Second hand tobacco smoke exposure: No Alcohol intake: never Substance use: never Substance use type: does not use Living arrangements: with family Gender identity (if verbalized by the patient): Female Spiritual care con
--- NOTE | 2021-06-29 08:11 | WPDHPUPDATE1 ---
History and Physical Update Update Date/Time: 06/29/21 08:11 History and Physical has been reviewed, including an updated exam of the patient. There are NO changes in the patient's condition. Risks, benefits, and alternatives have been discussed and questions answered. Patient agrees to proceed with procedure. Proceed with left renal ESWL
[2021-06-29] MEDS: SCOPOLAMINE 1.5 MG PATCH TRANSDERM (08:18)
[2021-06-29 08:23] LABS: Glucose Point of Care 218 mg/dl (65-105)
[2021-06-29] MEDS: ceFAZolin 2 GM/D5W 50 ML 2 GM/50 ML BAG IVPB (08:27)
[2021-06-29 09:15] VITALS: BP 106/64; PULSE 72; RESP 10; TEMP 36.1; O2SAT 100
--- NOTE | 2021-06-29 09:17 | P.OP_ITS ---
Procedure Note - Detailed Date of Procedure 06/29/21 Pre-op Diagnosis left renal stone Post-op Diagnosis same Procedure Performed ESWL of left renal calculus Surgeon Parminder Harrison MD Anesthesia general Description of Procedure Patient is taken to the operative suite and correctly identified. Once anesth esia was obtained the stone in the lower pole localized in both planes. Two thousand five hundred shocks were given the stones. There appeared to be fair amount of fragmentation. Patient tolerated procedure well without any complications and was taken recovery stable condition. She will follow up in 10-14 days with KUB. Drains No Packing No Pathology none sent Complications No immediate complications Condition stable Disposition PACU
[2021-06-29 09:29] VITALS: BP 104/61; PULSE 69; RESP 14; O2SAT 98
[2021-06-29 09:45] VITALS: BP 101/62; PULSE 73; RESP 16; O2SAT 93
[2021-06-29 09:47] VITALS: BP 114/61; PULSE 71; RESP 16
[2021-06-29 10:15] VITALS: BP 110/65; PULSE 65; RESP 16
== END 2021-06-29 10:38 | disposition home or self-care (01) ==
PROVIDERS: PCP Family Medicine; Visit Provider Urology
PROC: (CPT 50590; principal; 2021-06-29 09:30)
DX: N20.0 Calculus of kidney (principal); Z79.82 Long term (current) use of aspirin; Z79.84 Long term (current) use of oral hypoglycemic drugs; E11.9 Type 2 diabetes mellitus without complications; R77.8 Other specified abnormalities of plasma proteins; K21.9 Gastro-esophageal reflux disease without esophagitis; R00.2 Palpitations; E05.90 Thyrotoxicosis, unspecified without thyrotoxic crisis or storm; E89.0 Postprocedural hypothyroidism; E55.9 Vitamin D deficiency, unspecified; Z90.49 Acquired absence of other specified parts of digestive tract; E66.9 Obesity, unspecified; Z68.32 Body mass index [BMI] 32.0-32.9, adult
CPT/HCPCS: 50590; 36415; 74018; 82948; 85610; 85730; 87086; 87088; A9270; J0690; J1100; J2250; J2405; J2704; J7120

== ENCOUNTER 2021-07-04 11:02 | Outpatient (CLI) | payer BC, SELFPAY ==
--- NOTE | ~2021-07-04 | XR_ITS ---
EXAMINATION: XR abdomen/kub 1V DATE: 07/04/2021 11:19 INDICATION: Calcium kidney stone, left side. TECHNIQUE: A supine view of the abdomen on 2 radiographs was obtained. COMPARISON: Abdomen radiographs 06/29/2021, CT abdomen and pelvis 03/06/2020 FINDINGS: There are no dilated loops of bowel. There are phleboliths in the pelvis. There is a cluste r of stones measuring up to 4 mm in left kidney lower pole. Surgical clips in the right upper quadran t are likely from cholecystectomy. IMPRESSION: 1. Left kidney stones. Reviewed, dictated and finalized at location A. STRIPPER IMPRESSION: 1. Left kidney stones.
== END 2021-07-04 11:03 | disposition home or self-care (01) ==
LOC: ANHIMG 11:04
PROVIDERS: PCP Family Medicine; Visit Provider Urology
DX: N20.0 Calculus of kidney (principal)
CPT/HCPCS: 74018

== ENCOUNTER 2021-08-09 08:54 | Outpatient (CLI) | payer BC, SELFPAY ==
--- NOTE | ~2021-08-09 | XR_ITS ---
XR abdomen/kub 1V 08/09/2021 09:13 INDICATION: Left renal stones TECHNIQUE: KUB COMPARISON: Comparison to multiple prior studies sequentially, with oldest reviewed study dated 02/14. FINDINGS: Bowel gas pattern is normal. There is no evidence of free air, mass, organomegaly, ascites or obstruction. There are multiple left renal stones, largest measuring approximately 1 cm greatest dimension. The bones appear intact. There are cholecystectomy clips. IMPRESSION: 1: Left nephrolithiasis. Reviewed, dictated and finalized at location A. SPACE PHYSIOLOGICAL TECHNICIAN IMPRESSION: 1: Left nephrolithiasis.
== END 2021-08-09 08:55 | disposition home or self-care (01) ==
LOC: ANHIMG 08:56
PROVIDERS: PCP Family Medicine; Visit Provider Urology
DX: N20.0 Calculus of kidney (principal)
CPT/HCPCS: 74018

== ENCOUNTER 2021-09-05 10:13 | Outpatient (CLI) | payer BC, SELFPAY ==
--- NOTE | ~2021-09-05 | XR_ITS ---
EXAMINATION: XR abdomen/kub 1V DATE: 09/05/2021 10:44 INDICATION: Calcium kidney stone. TECHNIQUE: A supine view of the abdomen on 2 radiographs was obtained. COMPARISON: Abdomen radiographs 08/09/2021, CT abdomen and pelvis 03/14/2020 FINDINGS: There are no dilated loops of bowel. Surgical clips in the right upper quadrant are likely from cholecystectomy. There are phleboliths in the pelvis. There are 3 stones in left kidney lower po le measuring up to 2 mm. IMPRESSION: 1. Left kidney stones. Reviewed, dictated and finalized at location A. UET MAKER IMPRESSION: 1. Left kidney stones.
== END 2021-09-05 10:14 | disposition home or self-care (01) ==
LOC: ANHIMG 10:19
PROVIDERS: PCP Family Medicine; Visit Provider Urology
DX: N20.0 Calculus of kidney (principal)
CPT/HCPCS: 74018

== ENCOUNTER 2021-09-06 09:15 | Outpatient (RCR) | payer BC, SELFPAY | END 2021-09-10 11:59 | disposition home or self-care (01) | LOC: ANHDMC 09:15 | PROVIDERS: PCP Family Medicine; Visit Provider Family Medicine | DX: E11.8 Type 2 diabetes mellitus with unspecified complications (principal); Z71.89 Other specified counseling | CPT/HCPCS: G0108 ==

== ENCOUNTER 2021-09-26 08:46 | Outpatient (CLI) | payer BC, SELFPAY ==
[2021-09-26 09:38] LABS: Alanine Aminotransferase 52 U/L (4-35); Albumin Level 4.6 g/dL (3.5-5.1); Alkaline Phosphatase 71 U/L (38-126); Anion Gap 10 mmol/L (8-16); Aspartate Amino Transferase 51 U/L (14-36); Bilirubin,Total 0.4 mg/dL (0.2-1.3); Blood Urea Nitrogen 17 mg/dL (7-17); Calcium 9.6 mg/dL (8.4-10.2); Carbon Dioxide 27 mmol/L (22-30); Chloride 102 mmol/L (98-107); Estimated Glomerular Filt Rate > 60; Glucose 185 mg/dL (65-110); Sodium 139 mmol/L (137-145)
[2021-09-26 09:42] LABS: Hemoglobin A1C 7.9 % (<5.7)
== END 2021-09-26 08:47 | disposition home or self-care (01) ==
LOC: ANHLAB 08:48
PROVIDERS: PCP Family Medicine; Visit Provider Family Medicine
DX: E11.65 Type 2 diabetes mellitus with hyperglycemia (principal); E11.8 Type 2 diabetes mellitus with unspecified complications; Z68.31 Body mass index [BMI] 31.0-31.9, adult; R79.89 Other specified abnormal findings of blood chemistry
CPT/HCPCS: 36415; 80053; 83036

== ENCOUNTER 2021-10-03 07:54 | Outpatient (CLI) | payer BC, SELFPAY ==
--- NOTE | ~2021-10-03 | US_ITS ---
EXAMINATION: US abdomen limited DATE: 10/03/2021 08:38 INDICATION: Elevated liver enzymes TECHNIQUE: Multiple grayscale and Doppler ultrasound images of the abdomen were obtained. COMPARISON: None available FINDINGS: The head and body of the pancreas are normal. The pancreatic tail is obscured by bowel gas. The liver demonstrates increased echogenicity, heterogenous echotexture, and decreased through trans mission. No surface nodularity. Normal hepatopetal flow in the main portal vein. The gallbladder is s urgically absent. The normal common bile duct measures 4 mm. IMPRESSION: 1. Diffuse hepatic steatosis. Reviewed, dictated and finalized at location A. EDITED LEGAL SECRETARY
== END 2021-10-03 07:55 | disposition home or self-care (01) ==
PROVIDERS: PCP Family Medicine; Visit Provider Family Medicine
DX: R74.8 Abnormal levels of other serum enzymes (principal); K76.0 Fatty (change of) liver, not elsewhere classified
CPT/HCPCS: 76705

== ENCOUNTER 2021-10-31 13:29 | Outpatient (CLI) | payer BC, SELFPAY ==
--- NOTE | ~2021-10-31 | US_ITS ---
EXAMINATION: US thyroid DATE: 10/31/2021 14:08 INDICATION: Thyroid nodule. TECHNIQUE: Multiple ultrasound images of the thyroid were obtained. COMPARISON: Ultrasound 06/13/2020, 07/17/2016 FINDINGS: The right thyroid lobe measures 2.1 x 0.9 x 0.9 cm. The left thyroid lobe measures 2.7 x 0.9 x 1.2 c m. In the left thyroid lobe, there is a 1.2 cm solid, hypoechoic, [id number] nodule with ill-de fined margin and macrocalcifications (TI-RADS TR4) with decrease in size from 07/17/16. Biopsy on was benign. In the left thyroid lobe, there is a 5 mm solid, hypoechoic, [id number] nodu le with ill-defined margin and macrocalcifications (TR4). IMPRESSION: 1. Thyroid nodules, likely not clinically significant. No follow-up is needed. Reviewed, dictated and finalized at location A.
== END 2021-10-31 13:30 | disposition home or self-care (01) ==
LOC: ANHIMG 13:34
PROVIDERS: PCP Family Medicine; Visit Provider Nurse Practitioner Family
DX: E04.2 Nontoxic multinodular goiter (principal); R13.10 Dysphagia, unspecified
CPT/HCPCS: 76536

== ENCOUNTER 2021-12-05 09:15 | Outpatient (RCR) | payer BC, SELFPAY | END 2021-12-05 14:04 | disposition home or self-care (01) | LOC: ANHDMC 09:15 | PROVIDERS: PCP Family Medicine; Visit Provider Family Medicine | DX: E11.8 Type 2 diabetes mellitus with unspecified complications (principal); Z71.89 Other specified counseling | CPT/HCPCS: G0108 ==

== ENCOUNTER 2022-05-15 08:26 | Outpatient (CLI) | payer BC, SELFPAY ==
[2022-05-15 09:06] LABS: Alanine Aminotransferase 41 U/L (6-35); Albumin Level 4.4 g/dL (3.5-5.1); Alkaline Phosphatase 59 U/L (38-126); Anion Gap 13 mmol/L (8-16); Aspartate Amino Transferase 38 U/L (14-36); Bilirubin,Total 0.2 mg/dL (0.2-1.3); Blood Urea Nitrogen 12 mg/dL (7-17); Calcium 9.6 mg/dL (8.4-10.2); Carbon Dioxide 29 mmol/L (22-30); Chloride 98 mmol/L (98-107); Cholesterol 121 mg/dL (0-200); Estimated Glomerular Filt Rate > 60; Glucose 154 mg/dL (65-110); HDL Direct 29 mg/dL; Potassium 3.8 mmol/L (3.4-5.0); Sodium 140 mmol/L (137-145); Triglycerides 236 mg/dL (<150)
[2022-05-15 09:18] LABS: LDL Cholesterol Direct 61 mg/dL
[2022-05-15 09:52] LABS: Vitamin D 25 Hydroxy 49.7 ng/mL
[2022-05-15 10:13] LABS: Creatinine Urine 96.4 mg/dL
[2022-05-15 10:16] LABS: MALB Creatinine Ratio 40.5 mg/g (0-30)
== END 2022-05-15 08:27 | disposition home or self-care (01) ==
LOC: ANHLAB 08:28
PROVIDERS: PCP Family Medicine; Visit Provider Internal Medicine Endocrinology, Diabetes & Metabolism
DX: E11.9 Type 2 diabetes mellitus without complications (principal); E04.1 Nontoxic single thyroid nodule; E89.0 Postprocedural hypothyroidism; R79.89 Other specified abnormal findings of blood chemistry
CPT/HCPCS: 36415; 80053; 80061; 82043; 82306; 82607; 84439; 84443

== ENCOUNTER 2022-07-22 08:37 | Outpatient (CLI) | payer BC, SELFPAY ==
--- NOTE | ~2022-07-22 | XR_ITS ---
XR wrist LT 2V DATE: 07/22/2022 08:55 INDICATION: Left wrist and hand pain TECHNIQUE: AP and lateral views COMPARISON: 07/22/2022 left hand FINDINGS: There is mild osteoarthritis at the triscaphe and first carpometacarpal joints. No fracture, dislocation, periosteal reaction or bone destruction, erosive change or chondrocalcinosi s. IMPRESSION: Mild osteoarthritis Reviewed, dictated and finalized at location B. CULTURAL SCIENCE PROFESSOR IMPRESSION: Mild osteoarthritis
--- NOTE | ~2022-07-22 | XR_ITS ---
XR hand LT min 3V DATE: 07/22/2022 08:54 INDICATION: Left hand pain TECHNIQUE: 3 views of left hand COMPARISON: None FINDINGS: There is mild osteophytic change at the triscaphe, first carpometacarpal and interphalangea l joints. No fracture or dislocation, periosteal reaction or bone destruction. No erosive change or chondrocalc inosis. IMPRESSION: Polyarticular mild osteoarthritis Reviewed, dictated and finalized at location B. SFER AND LINE UP WORKER
[2022-07-22 09:31] LABS: Free T4 Free Thyroxine 1.01 ng/mL (0.78-2.19)
[2022-07-22 10:08] LABS: Thyroid Stimulating Hormone 0.777 uIU/mL (0.465-4.680)
== END 2022-07-22 08:38 | disposition home or self-care (01) ==
LOC: ANHLAB 08:40
PROVIDERS: PCP Family Medicine; Visit Provider Internal Medicine Endocrinology, Diabetes & Metabolism
DX: M19.042 Primary osteoarthritis, left hand (principal); M25.539 Pain in unspecified wrist; E89.0 Postprocedural hypothyroidism
CPT/HCPCS: 36415; 73100; 73130; 84439; 84443

== ENCOUNTER 2022-09-04 08:48 | Outpatient (CLI) | payer BC, SELFPAY ==
--- NOTE | ~2022-09-04 | MM_ITS ---
EXAMINATION: MM screening [facility] BI w cara HISTORY: Screening mammogram TECHNIQUE: Craniocaudal and mediolateral oblique 3-D tomosynthesis images were obtained and synthetic 2-D images were generated. CAD analysis was submitted and interpreted. COMPARISON: 03/28/2021, 04/02/2017, 11/01/2015 BREAST PARENCHYMAL COMPOSITION: There are scattered areas of fibroglandular density. FINDINGS: No suspicious mass, calcification, or architectural distortion are identified in either henry ast to suggest malignancy. There has been no suspicious interval change. IMPRESSION: 1. No mammographic evidence of malignancy. 2. Recommend routine screening mammography in one year. BI-RADS Category 1: Negative Reviewed, dictated and finalized at location A. WRAPPER
== END 2022-09-04 08:49 | disposition home or self-care (01) ==
LOC: ANHIMG 08:49
PROVIDERS: PCP Family Medicine; Visit Provider Family Medicine
DX: Z12.31 Encounter for screening mammogram for malignant neoplasm of breast (principal)
CPT/HCPCS: 77063; 77067

== ENCOUNTER 2023-01-01 08:57 | Outpatient (CLI) | payer BC, SELFPAY ==
--- NOTE | ~2023-01-01 | XR_ITS ---
XR abdomen/kub 1V 01/01/2023 09:18 Indication: Renal stones Procedure: KUB Comparison: 09/05/2021 Findings: There are small punctate stones in the lower pole of the left kidney. There are cholecystec ede clips. Bowel gas pattern is nonobstructive. There are stable pelvic phleboliths. Impression: 1: Left nephrolithiasis. Reviewed, dictated and finalized at location B. Impression: 1: Left nephrolithiasis.
== END 2023-01-01 08:58 | disposition home or self-care (01) ==
LOC: ANHIMG 08:59
PROVIDERS: PCP Family Medicine; Visit Provider Urology
DX: N20.0 Calculus of kidney (principal)
CPT/HCPCS: 74018

== ENCOUNTER → 2023-02-05 09:41 | Outpatient (CLI) | payer BC, SELFPAY ==
--- NOTE | ~2023-02-05 | XR_ITS ---
Lumbosacral Spine: AP and lateral views Clinical History: Pain Findings: There is mild dextroscoliosis. No fracture or subluxation evident otherwise. There is moder ate to advanced facet arthropathy throughout the lumbar spine. The intervertebral disc spaces are pre served. The sacroiliac joints are normally outlined. Impression: Moderate to advanced facet arthropathy throughout the lumbar spine, with mild dextro scoliosis. Reviewed, dictated and finalized at location M. Impression: Moderate to advanced facet arthropathy throughout the lumbar spine, with mild d extro scoliosis.
--- NOTE | ~2023-02-05 | XR_ITS ---
EXAMINATION: XR chest 2V 02/05/2023 10:03 INDICATION: Acquired deformity of the chest and ribs PROCEDURE: 2 view chest COMPARISON: Comparison to multiple prior studies sequentially, with oldest reviewed study dated 12/02. FINDINGS: There is chronic bibasilar atelectasis/scarring. No focal pneumonia or edema. The cardiomed iastinal silhouette is within normal limits. There are no pleural effusions. There is no pneumothor ax suspected. IMPRESSION: 1: Chronic bibasilar atelectasis/scarring.. Reviewed, dictated and finalized at location []
== END ==
PROVIDERS: PCP Family Medicine; Visit Provider Nurse Practitioner Family
DX: M54.50 Low back pain, unspecified (principal); M95.4 Acquired deformity of chest and rib; R91.8 Other nonspecific abnormal finding of lung field
CPT/HCPCS: 71046; 72100

== ENCOUNTER 2023-02-08 10:12 | Outpatient (CLI) | payer BC, SELFPAY ==
[2023-02-08 10:54] LABS: Basophils Percent Auto 0.6 % (0.2-1.2); Eosinophils Absolute Auto 0.1 K/mm3 (0-0.3); Eosinophils Percent Auto 1.3 % (0-4.4); Hematocrit 38.4 % (37.0-47.0); Hemoglobin 11.2 g/dL (12.0-15.0); Immature Granulocyte Absolute 0.01 K/mm3 (0.00-0.031); Immature Granulocyte Percent A 0.2 % (0-0.5); Lymphocytes Percent Auto 33.6 % (18.3-44.2); Mean Corpuscular HGB Conc 29.2 g/dl (32-36); Mean Corpuscular Hemoglobin 23.2 pg (26-34); Mean Corpuscular Volume 79.5 fl (80-100); Monocytes Absolute Auto 0.3 K/mm3 (0.1-0.6); Monocytes Percent Auto 6.5 % (2.6-8.5); Neutrophils Absolute Auto 2.8 K/mm3 (1.3-6.7); Neutrophils Percent Auto 57.8 % (45.5-73.1); Platelet Count Result 226 k/mm3 (150-375); Red Blood Count 4.83 M/mm3 (4.2-5.4); Red Cell Distribution Width 17.3 % (11.5-14.5); White Blood Count 4.8 K/mm3 (4.5-10.0)
[2023-02-08 11:37] LABS: Thyroid Stimulating Hormone 0.588 uIU/mL (0.465-4.680)
[2023-02-08 12:11] LABS: Free T4 Free Thyroxine 1.31 ng/mL (0.78-2.19)
[2023-02-08 12:31] LABS: Ferritin 5.75 ng/mL (11.1-264)
[2023-02-08 13:44] LABS: Ovalocytes 1+ (NORMAL); Platelet Estimate Adequate (Adequate); Poikilocytosis 1+ (NORMAL); Schistocytes None Seen (NORMAL)
== END 2023-02-08 10:13 | disposition home or self-care (01) ==
LOC: ANHLAB 10:14
PROVIDERS: PCP Nurse Practitioner Family; Visit Provider Nurse Practitioner Family
DX: E04.1 Nontoxic single thyroid nodule (principal); M62.838 Other muscle spasm
CPT/HCPCS: 36415; 82728; 84439; 84443; 85025

== ENCOUNTER 2023-04-29 07:48 | Outpatient (CLI) | payer BC, SELFPAY ==
[2023-04-29 09:34] LABS: Alanine Aminotransferase 44 U/L (6-35); Albumin Level 4.4 g/dL (3.5-5.1); Alkaline Phosphatase 71 U/L (38-126); Anion Gap 11 mmol/L (8-16); Aspartate Amino Transferase 44 U/L (14-36); Bilirubin,Total 0.3 mg/dL (0.2-1.3); Blood Urea Nitrogen 15 mg/dL (7-17); Calcium 9.2 mg/dL (8.4-10.2); Carbon Dioxide 28 mmol/L (22-30); Chloride 100 mmol/L (98-107); Cholesterol 126 mg/dL (0-200); Estimated Glomerular Filt Rate > 60; Glucose 147 mg/dL (65-110); HDL Direct 23 mg/dL; Potassium 3.3 mmol/L (3.4-5.0); Sodium 139 mmol/L (137-145); Triglycerides 493 mg/dL (<150)
[2023-04-29 09:45] LABS: LDL Cholesterol Direct 57 mg/dL
[2023-04-29 09:55] LABS: Creatinine Urine 121.5 mg/dL
[2023-04-29 10:00] LABS: MALB Creatinine Ratio 53.9 mg/g (0-30); Microalbumin Urine Random 65.5 mg/L (0-16.7)
[2023-04-29 10:15] LABS: Hemoglobin A1C 6.4 % (<5.7)
[2023-04-29 10:29] LABS: Free T4 Free Thyroxine 1.29 ng/mL (0.78-2.19)
== END 2023-04-29 07:49 | disposition home or self-care (01) ==
LOC: ANHLAB 07:50
PROVIDERS: PCP Nurse Practitioner Family; Visit Provider Internal Medicine Endocrinology, Diabetes & Metabolism
DX: E04.1 Nontoxic single thyroid nodule (principal); E11.65 Type 2 diabetes mellitus with hyperglycemia; R79.89 Other specified abnormal findings of blood chemistry; E89.0 Postprocedural hypothyroidism
CPT/HCPCS: 36415; 80053; 80061; 82043; 82306; 82607; 83036; 84439; 84443

== ENCOUNTER 2023-08-06 07:44 | Outpatient (CLI) | payer BC, SELFPAY ==
--- NOTE | ~2023-08-06 | DEXA_ITS ---
Bone Density Report Name: MALATHI RANDLE Age: 63 Sex: Female Ethnicity: White Date of : 1960 Indication: postmenopausal; screening for osteoporosis; hysterectomy; Referring Provider: CATHY DANIEL Study: Bone densitometry was performed. Exam Date: August 06, 2023 Accession number: [id number] Bone Density: Region BMD T-score Z-score Classification AP Spine(L1-L4) 1.112 0.6 2.2 Normal Femoral Neck (Left) 1.082 2.1 3.5 Normal Total Hip (Left) 1.161 1.8 2.9 Normal Femoral Neck (Right) 1.144 2.7 4.0 Normal Total Hip (Right) 1.128 1.5 2.6 Normal Total Hip Mean 1.144 1.7 2.8 Normal World Health Organization criteria for BMD impression classify patients as: Normal (T-score at or above -1.0), Osteopenia (T-score between -1.0 and -2.5), or Osteoporosis (T-score at or below -2.5). 10-year Fracture Risk: FRAX not reported because: All T-scores for Spine Total, Hip Total, Femoral Neck at or above -1.0 Clinical Information Provided by Patient: Has used the following medications: Vitamin D Has the following medical conditions: Hysterectomy Patient maximum height was 67.75 Menopause Age: 41 No regular weight bearing exercise Drinks caffeinated beverages Onset of menses at age 11 Number of children 2 Impression: The patient has normal bone mass. Discussion: LOW RISK OF FRACTURE; BONE DENSITY IS WELL ABOVE THE MINIMUM DESIRABLE LEVEL AND ABOVE AVERAGE FOR AGE AND SEX AT ALL SKELETAL SITES TESTED. This person's bone density is above expected limits for age and sex. This is rarely clinically significant, but should be pursued if there are significant musculoskeletal complaints. The patient should follow a healthful lifestyle (good nutrition with adequate calcium and vitamin D, and appropriate weight-bearing exercise). Follow-Up: Consider repeating this study in 5 years or sooner if there is some new clinical indication. Reported by: RAMÍREZ on 08/06/2023 8:04:00 AM. Reviewed, dictated and finalized at location AMeghana LOPEZ
== END 2023-08-06 07:45 | disposition home or self-care (01) ==
LOC: ANHIMG 07:51
PROVIDERS: PCP Family Medicine; Visit Provider Internal Medicine Endocrinology, Diabetes & Metabolism
DX: Z78.0 Asymptomatic menopausal state (principal)
CPT/HCPCS: 77080

== ENCOUNTER → 2023-08-13 12:48 | Outpatient (CLI) | payer BC, SELFPAY ==
--- NOTE | ~2023-08-13 | CT_ITS ---
EXAMINATION: CT abdomen pelvis w con DATE: 08/13/2023 13:14 INDICATION: Unspecified abdominal pain. Diarrhea. TECHNIQUE: Computed tomography (CT) of the abdomen and pelvis was performed with 100 mL Omnipaque 350 intravenous contrast. Automated exposure control and iterative reconstruction technique were employe d. The dose-length product was 907.02 mGy-cm. COMPARISON: CT abdomen and pelvis 03/14/2020 FINDINGS: The visualized portions of the lung bases demonstrate mild atelectasis. No pleural effusion . The heart size is normal. There are coronary artery calcifications. No pericardial effusion. There is a small sliding hiatal hernia. There is a 17 mm cyst in the liver. There are changes of cholecyste ctomy. The spleen, pancreas, and adrenal glands are normal. There is a 7 mm cyst in right kidney. The re are 4 stones in left kidney measuring up to 4 mm. There is diverticulosis of the colon without angy dence of diverticulitis. There are no dilated loops of bowel. The appendix is not visualized. There a re no pathologically enlarged lymph nodes. There is no free intraperitoneal fluid. There is calcified atherosclerosis of the aorta and many of the other arteries. There is mild thoracic and lumbar spond ylosis. There is mild chronic anterior wedging of T11 vertebral body. IMPRESSION: 1. Small sliding hiatal hernia. Reviewed, dictated and finalized at location E. STANT PROFESSOR OF RADIOLOGY
[2023-08-13 13:05] LABS: Estimated Glomerular Filt Rate > 60
== END ==
PROVIDERS: PCP Family Medicine; Visit Provider Nurse Practitioner Family
DX: R19.7 Diarrhea, unspecified (principal); R10.9 Unspecified abdominal pain; K44.9 Diaphragmatic hernia without obstruction or gangrene
CPT/HCPCS: 74177; Q9967

== ENCOUNTER 2023-09-17 00:53 | Day surgery (SDC) | payer BC, SELFPAY ==
[2023-08-20 11:14] VITALS: BMI 31.3
--- NOTE | 2023-09-15 12:49 | SUR.PREOP ---
Patient called regarding upcoming procedure. Pt updated on arrival date and time. All questions answered.
--- NOTE | 2023-09-16 14:07 | PM.HPGS ---
History of Present Illness History of Present Illness Consent: Risks, benefits, and alternatives have been discussed and questions answered. Patient agrees to proceed with procedure. Chief complaint: diarrhea unspecified, neoplasm screening Narrative: Aundrea Rao is a 63 year old female Who is due for colon cancer screening. It has been 10 years since her last colonoscopy. Review of Systems Review of Systems: All systems reviewed & are unremarkable except as noted in HPI and below PMFSH Past Medical History Medical History Body mass index (BMI) 23 or greater (03/19/19) Calcium kidney stones Chest pain Complex regional pain syndrome I of unspecified upper limb Diabetes 1.5, managed as type 2 Diabetes mellitus Diaphragmatic hernia Dietary counseling and surveillance Disease of esophagus, unspecified Elevated troponin Encounter for Hemoccult screening Encounter for immunization (08/19/18) Essential (primary) hypertension Gastro-esophageal reflux disease without esophagitis Heart palpitations Heart palpitations History of esophageal dilatation due to esophageal spasm Hyperthyroidism with history of radioactive iodine treatment Hypothyroidism (acquired) Loose right total knee arthroplasty Low O2 saturation Multinodular goiter Obesity (BMI 30.0-34.9) Obstructive sleep apnea Other and unspecified hyperlipidemia Other hyperlipidemia Palpitations Postablative hypothyroidism Preop cardiovascular exam Primary osteoarthritis of right knee Pure hyperglyceridemia Radicular pain in left arm Subacute maxillary sinusitis Type 2 diabetes mellitus with hyperglycemia, without long-term current use of insulin Unspecified essential hypertension Vitamin D deficiency Surgical History Surgical History H/O: hysterectomy History of appendectomy History of bilateral carpal tunnel release History of bladder suspension procedure History of cardiac catheterization April 2016 Hx of cholecystectomy Hx of tonsillectomy Knee joint replacement status 2019 S/P cystoscopy with ureteral stent placement left renal stone 05/2020 Status post radioactive iodine thyroid ablation Family History Family History Father Diabetes mellitus Hypertension Heart disease CHF (congestive heart failure) Hearing loss Hyperlipidemia Sibling Migraines Mother Hypertension Cataract Glaucoma Skin cancer Osteoarthritis Heart disease Social History Social History Social History: 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 She lives in [facility] with her of 35 years. They have 1 cat. She has 2 adult children are healthy. [id number] Smoking status: Never smoker Second hand tobacco smoke exposure: No Alcohol intake: never Substance use: never Substance use type: does not use Lack of Transportation: No Lack of Food: Never True Current Housing: I Have Housing Concerned About Future Housing: No Difficulty Paying Gas/Electric Bills: No Difficulty Paying for Meds: No Currently Unemployed: No Education: Bachelor's Degree Difficulty w/ Childcare or Family Care: No Living arrangements: with family Occupation/Education: occupation Gender identity (if verbalized by the patient): Female Sexual Orientation (if Verbalized by the Patient): Straight or Heterosexual Spiritual care concerns: No Agree to blood products: Yes Meds Home Medications and Allergies Home Medications Medication Instructions Recorded Confirmed Type cetirizine 10 mg capsule 10 mg PO DAILY 07/30/19 08/20/23 History cyanocobalamin (vitamin B-12) 1,000 mcg PO DAILY 07/30/19 08/20/23 History 1,000 mcg capsule cholecalciferol (vitamin D3) 50 50 mcg PO DAILY 03/29/21 08/20/23 History mcg (2,000 uni
[2023-09-17 11:19] VITALS: BP 118/81; PULSE 72; RESP 20; TEMP 36.3; O2SAT 99; BMI 28.5
[2023-09-17] MEDS: LACTATED RINGERS 1,000 ML 150 ML IV CONT (11:23)
[2023-09-17 11:48] LABS: Glucose Point of Care 118 mg/dl (65-105)
--- NOTE | 2023-09-17 12:03 | WPDANESEPPF ---
Anes - Initial Pre Proc Eval Procedure: Operation Date: 09/17/23 12:30 Proposed Procedures p Colonoscopy - Robert Holder MD Date/Time: 09/17/23 12:03 Surgeon: Robert Holder MD Pre Op Diagnosis: diarrhea unspecified, neoplasm screening Patient Data Age: 63 Gender: F Height: 1.7 m Weight: 82.7 kg Last Vital Signs Temp 97.4 F L 09/17/23 11:19 Pulse 72 09/17/23 11:19 Resp 20 09/17/23 11:19 BP 118/81 09/17/23 11:19 Pulse Ox 99 09/17/23 11:19 O2 Del Method Room Air 09/17/23 11:19 Allergies Allergy/AdvReac Type Severity Reaction Status Date / Time Penicillins Allergy Severe Hives Verified 09/17/23 11:17 sulfamethoxazole Allergy Severe Hives Verified 09/17/23 11:17 [From ] trimethoprim [From ] Allergy Severe Hives Verified 09/17/23 11:17 Home Medications Medication Instructions Recorded Confirmed Type cetirizine 10 mg capsule 10 mg PO DAILY 07/30/19 08/20/23 History cyanocobalamin (vitamin B-12) 1,000 mcg PO DAILY 07/30/19 08/20/23 History 1,000 mcg capsule cholecalciferol (vitamin D3) 50 50 mcg PO DAILY 03/29/21 08/20/23 History mcg (2,000 unit) capsule (Vitamin D3) blood sugar diagnostic, disc #100 ea 07/02/21 08/06/23 Rx diphenhydramine HCl 25 mg capsule 50 mg PO HS Insomnia 01/30/22 08/20/23 History (Benadryl) metronidazole 0.75 % topical cream 1 applic topical QHS 01/30/22 08/20/23 History (MetroCream) metoprolol tartrate 50 mg tablet 50 mg PO BID #180 tabs 12/17/22 08/20/23 Rx fluticasone propionate 50 1 spray intranasal DAILY 12/18/22 08/20/23 History mcg/actuation nasal spray,suspension (Flonase Allergy Relief) diclofenac sodium 1 % topical gel 2 g topical QID 02/05/23 08/20/23 History (Voltaren Arthritis Pain) empagliflozin 25 mg tablet See Rx Instructions .Route 04/22/23 08/20/23 Rx (Jardiance) .COMPLEX #30 tabs blood sugar diagnostic (OneTouch #100 ea 04/23/23 08/06/23 Rx Verio test strips) lancets 33 gauge (OneTouch Delica #100 ea 04/23/23 08/06/23 Rx Plus Lancet) metformin 500 mg tablet,extended See Rx Instructions .Route 04/24/23 08/20/23 Rx release 24 hr .COMPLEX #360 tabs icosapent ethyl 1 gram capsule 2 g PO BID 90 days #360 caps 04/29/23 08/20/23 Rx (Vascepa) omeprazole 20 mg capsule,delayed See Rx Instructions .Route 05/26/23 08/20/23 Rx release .COMPLEX #90 caps levothyroxine 112 mcg tablet See Rx Instructions .Route 06/09/23 08/20/23 Rx .COMPLEX #90 tabs lovastatin 40 mg tablet See Rx Instructions .Route 06/12/23 08/20/23 Rx .COMPLEX #90 tabs losartan 25 mg tablet 25 mg PO DAILY 90 days #90 tabs 07/11/23 08/20/23 Rx hydrochlorothiazide 12.5 mg tablet See Rx Instructions .Route 07/14/23 08/20/23 Rx .COMPLEX #90 tabs dicyclomine 10 mg capsule 10 mg PO TID PRN abdominal pain 08/06/23 08/20/23 Rx #90 caps ferrous sulfate 325 mg (65 mg 325 mg PO DAILY 08/20/23 08/20/23 History iron) tablet (iron) cephalexin 500 mg tablet 500 mg PO Q12H #60 tabs 08/27/23 08/27/23 Rx dulaglutide 1.5 mg/0.5 mL 1.5 mg (0.5 mL) subcut WEEKLY #2 mL 09/17/23 09/17/23 Rx subcutaneous pen injector (Trulicity) Laboratory Tests 09/17/23 11:44 POC Capillary Glucose 118 H mg/dl (65-105) Patient hx anesthesia problems: none Family hx anesthesia problems: none Results Review: All pre-operative results and documents have been reviewed as part of the pre-operative evaluation. [facility] Past Medical History Medical History Body mass index (BMI) 23 or greater (03/19/19) Calcium kidney stones Chest pain Complex regional pain syndrome I of unspecified upper limb Diabetes 1.5, managed as type 2 Diabetes mellitus Diaphragmatic hernia Dietary counseling and surveillance Disease of esophagus, unspecified Elevated troponin Encounter for Hemoccult screening Encounter for immunization (08/19/18) Essential (primary) hypertension
[2023-09-17] MEDS: SIMETHICONE ORAL SUSPENSION 20 MG/0.3 ML 30 ML BOTTLE 0.6 ML IRRIGATION (12:39)
[2023-09-17 12:53] VITALS: BP 87/54; PULSE 79; RESP 18; O2SAT 97
[2023-09-17 13:03] VITALS: BP 100/58; PULSE 71; RESP 17; O2SAT 97
[2023-09-17 13:13] VITALS: BP 104/58; PULSE 69; RESP 14; O2SAT 97
== END 2023-09-17 13:22 | disposition home or self-care (01) ==
PROVIDERS: PCP Family Medicine; Visit Provider Internal Medicine Gastroenterology
PROC: 0DJD8ZZ Inspection of Lower Intestinal Tract, Via Natural or Artificial Opening Endoscopic (ICD-10-PCS; CPT 45378; principal; 2023-09-17 12:30)
DX: Z12.11 Encounter for screening for malignant neoplasm of colon (principal); K57.30 Diverticulosis of large intestine without perforation or abscess without bleeding; D12.0 Benign neoplasm of cecum; E13.9 Other specified diabetes mellitus without complications; I10 Essential (primary) hypertension; K21.9 Gastro-esophageal reflux disease without esophagitis; G47.33 Obstructive sleep apnea (adult) (pediatric); E78.49 Other hyperlipidemia; E89.0 Postprocedural hypothyroidism; E55.9 Vitamin D deficiency, unspecified; G90.519 Complex regional pain syndrome I of unspecified upper limb; Z79.84 Long term (current) use of oral hypoglycemic drugs; Z79.85 Long-term (current) use of injectable non-insulin antidiabetic drugs
CPT/HCPCS: 45385; 82948; 88305; J2704; J7120

== ENCOUNTER 2023-11-12 09:42 | Outpatient (CLI) | payer BC, SELFPAY ==
--- NOTE | ~2023-11-12 | XR_ITS ---
XR ankle RT min 3V 11/12/2023 09:56 INDICATION: Right ankle pain PROCEDURE: 4 views right ankle COMPARISON: No prior studies for comparison. FINDINGS: Fracture, dislocation or subluxation is not identified. There are degenerative calcaneal en thesophytes. The soft tissues appear within normal limits. No foreign bodies are identified. IMPRESSION: 1: NO ACUTE BONE OR JOINT ABNORMALITY IDENTIFIED. Reviewed, dictated and finalized at location B.
== END 2023-11-12 09:43 | disposition home or self-care (01) ==
LOC: ANHIMG 09:44
PROVIDERS: PCP Family Medicine; Visit Provider Family Medicine
DX: M25.571 Pain in right ankle and joints of right foot (principal)
CPT/HCPCS: 73610

== ENCOUNTER 2024-02-03 08:50 | Outpatient (CLI) | payer BC, SELFPAY ==
--- NOTE | ~2024-02-03 | US_ITS ---
EXAMINATION: US thyroid DATE: 02/03/2024 09:10 INDICATION: Nontoxic single thyroid nodule. TECHNIQUE: Multiple ultrasound images of the thyroid were obtained. COMPARISON: Ultrasound 10/31/2021 FINDINGS: The right thyroid lobe measures 3.1 x 1.4 x 1.4 cm. The left thyroid lobe measures 3.7 x 1.4 x 1.6 c m. The thyroid demonstrates heterogeneous echogenicity. No discrete nodule. There are macrocalcifica tions in left thyroid lobe. Thyroid vascularity is normal. IMPRESSION: 1. Heterogeneous thyroid. No discrete nodule. Reviewed, dictated and finalized at location E.
== END 2024-02-03 08:51 ==
LOC: GOSHIMG 08:52
PROVIDERS: PCP Family Medicine; Visit Provider Nurse Practitioner Family
DX: E04.1 Nontoxic single thyroid nodule (principal)
CPT/HCPCS: 76536

== ENCOUNTER 2024-03-02 08:32 | Outpatient (CLI) | payer BC, SELFPAY ==
[2024-03-02 13:58] LABS: Creatinine Urine 75.8 mg/dL
[2024-03-02 14:01] LABS: MALB Creatinine Ratio 32.3 mg/g (0-30); Microalbumin Urine Random 24.5 mg/L (0-16.7)
[2024-03-02 14:06] LABS: Vitamin D 25 Hydroxy 29.7 ng/mL
[2024-03-02 14:32] LABS: Alanine Aminotransferase 57 U/L (6-35); Albumin Level 4.6 g/dL (3.5-5.1); Alkaline Phosphatase 61 U/L (38-126); Anion Gap 14 mmol/L (4-12); Aspartate Amino Transferase 66 U/L (14-36); Bilirubin,Total 0.5 mg/dL (0.2-1.3); Blood Urea Nitrogen 21 mg/dL (7-17); Calcium 9.7 mg/dL (8.4-10.2); Carbon Dioxide 29 mmol/L (22-30); Chloride 97 mmol/L (98-107); Cholesterol 126 mg/dL (0-200); Estimated Glomerular Filt Rate > 60; Glucose 118 mg/dL (65-110); HDL Direct 29 mg/dL; Potassium 4.1 mmol/L (3.4-5.0); Sodium 140 mmol/L (137-145); Triglycerides 344 mg/dL (<150)
[2024-03-02 14:35] LABS: Hemoglobin A1C 6.8 % (<5.7)
[2024-03-02 14:43] LABS: LDL Cholesterol Direct 68 mg/dL
== END 2024-03-02 08:33 | disposition home or self-care (01) ==
LOC: ANHGOSHLAB 08:33
PROVIDERS: PCP Family Medicine; Visit Provider Family Medicine
DX: E11.9 Type 2 diabetes mellitus without complications (principal); R79.89 Other specified abnormal findings of blood chemistry; Z78.0 Asymptomatic menopausal state; E89.0 Postprocedural hypothyroidism
CPT/HCPCS: 36415; 80053; 80061; 82043; 82306; 82607; 83036; 84443

== ENCOUNTER 2024-04-16 00:36 | Day surgery (SDC) | payer BC, SELFPAY ==
[2024-03-29 14:21] VITALS: BMI 28.9
[2024-04-16 12:49] VITALS: BP 118/74; PULSE 72; RESP 16; TEMP 36.2; O2SAT 97
[2024-04-16 13:02] LABS: Glucose Point of Care 114 mg/dl (65-105)
[2024-04-16] MEDS: LACTATED RINGERS 1,000 ML 150 ML IV CONT (13:02)
--- NOTE | 2024-04-16 13:06 | WPDANESEPPF ---
Anes - Initial Pre Proc Eval Procedure: Operation Date: 04/16/24 14:00 Proposed Procedures p Esophagogastroduodenoscopy - Earnest Hernandez MD Date/Time: 04/16/24 13:06 Surgeon: Earnest Hernandez MD Pre Op Diagnosis: Dysphagia, GERD Patient Data Age: 64 Gender: F Height: 1.73 m Weight: 83.6 kg Last Vital Signs Temp 97.1 F L 04/16/24 12:49 Pulse 72 04/16/24 12:49 Resp 16 04/16/24 12:49 BP 118/74 04/16/24 12:49 Pulse Ox 97 04/16/24 12:49 O2 Del Method Room Air 04/16/24 12:49 Allergies Allergy/AdvReac Type Severity Reaction Status Date / Time Penicillins Allergy Severe Hives Verified 04/16/24 12:45 sulfamethoxazole Allergy Severe Hives Verified 04/16/24 12:45 [From ] trimethoprim [From ] Allergy Severe Hives Verified 04/16/24 12:45 Home Medications Medication Instructions Recorded Confirmed Type cetirizine 10 mg capsule 10 mg PO DAILY 07/30/19 04/16/24 History cyanocobalamin (vitamin B-12) 1,000 mcg PO DAILY 07/30/19 04/16/24 History 1,000 mcg capsule blood sugar diagnostic, disc #100 ea 07/02/21 04/16/24 Rx diphenhydramine HCl 25 mg capsule 50 mg PO HS Insomnia 01/30/22 04/16/24 History (Benadryl) fluticasone propionate 50 1 spray intranasal DAILY 12/18/22 04/16/24 History mcg/actuation nasal spray,suspension (Flonase Allergy Relief) blood sugar diagnostic (OneTouch #100 ea 04/23/23 04/16/24 Rx Verio test strips) lancets 33 gauge (OneTouch Delica #100 ea 04/23/23 04/16/24 Rx Plus Lancet) levothyroxine 112 mcg tablet See Rx Instructions .Route 06/09/23 04/16/24 Rx .COMPLEX #90 tabs losartan 25 mg tablet 25 mg PO DAILY 90 days #90 tabs 07/11/23 04/16/24 Rx dicyclomine 10 mg capsule 10 mg PO TID PRN abdominal pain 08/06/23 04/16/24 Rx #90 caps empagliflozin 25 mg tablet See Rx Instructions .Route 11/25/23 04/16/24 Rx (Jardiance) .COMPLEX #90 tabs metoprolol tartrate 50 mg tablet 50 mg PO BID #180 tabs 11/28/23 04/16/24 Rx hydrochlorothiazide 12.5 mg tablet See Rx Instructions .Route 12/30/23 04/16/24 Rx .COMPLEX #90 tabs dulaglutide 1.5 mg/0.5 mL See Rx Instructions .Route 01/05/24 04/16/24 Rx subcutaneous pen injector .COMPLEX #6 mL (Trulicity) icosapent ethyl 1 gram capsule 2 g PO BID 02/25/24 04/16/24 History (Vascepa) omeprazole 40 mg capsule,delayed 40 mg PO DAILY #30 caps 02/25/24 04/16/24 Rx release lovastatin 40 mg tablet See Rx Instructions .Route 02/26/24 04/16/24 Rx .COMPLEX #90 tabs metformin 500 mg tablet,extended See Rx Instructions .Route 03/22/24 04/16/24 Rx release 24 hr .COMPLEX #360 tabs ferrous sulfate 325 mg (65 mg 325 mg PO DAILY #60 tabs 03/29/24 04/16/24 Rx iron) tablet (iron) cpap #1 ea 03/31/24 04/16/24 Rx Laboratory Tests 04/16/24 12:59 POC Capillary Glucose 114 H mg/dl (65-105) Patient hx anesthesia problems: none Family hx anesthesia problems: none Results Review: All pre-operative results and documents have been reviewed as part of the pre-operative evaluation. [facility] Past Medical History Medical History Body mass index (BMI) 23 or greater (03/19/19) Calcium kidney stones Chest pain Complex regional pain syndrome I of unspecified upper limb Diabetes 1.5, managed as type 2 Diabetes mellitus Diaphragmatic hernia Dietary counseling and surveillance Disease of esophagus, unspecified Dysphagia esophageal web 8.17.21 egd Elevated troponin Encounter for Hemoccult screening Encounter for immunization (08/19/18) Essential (primary) hypertension Gastro-esophageal reflux disease without esophagitis Heart palpitations Heart palpitations History of esophageal dilatation due to esophageal spasm Hyperthyroidism with history of radioactive iodine treatment Hypothyroidism (acquired) Loose right total knee arthroplasty Low O2 saturation Multinodular goiter Obesity (BMI 30.0-34.9) O
--- NOTE | 2024-04-16 13:25 | WPDHPUPDATE1 ---
History and Physical Update Update Date/Time: 04/16/24 13:25 History and Physical has been reviewed, including an updated exam of the patient. There are NO changes in the patient's condition. Risks, benefits, and alternatives have been discussed and questions answered. Patient agrees to proceed with procedure.
[2024-04-16 13:45] VITALS: BP 72/32; PULSE 80; RESP 16; O2SAT 96
[2024-04-16 13:54] VITALS: BP 79/41; PULSE 75; RESP 16; O2SAT 97
[2024-04-16 14:03] VITALS: BP 91/48; PULSE 70; RESP 16; O2SAT 98
== END 2024-04-16 14:15 | disposition home or self-care (01) ==
PROVIDERS: PCP Family Medicine; Referring Provider Nurse Practitioner; Visit Provider Internal Medicine Gastroenterology
PROC: 0DJ08ZZ Inspection of Upper Intestinal Tract, Via Natural or Artificial Opening Endoscopic (ICD-10-PCS; CPT 43235; principal; 2024-04-16 14:00)
DX: K22.2 Esophageal obstruction (principal); K44.9 Diaphragmatic hernia without obstruction or gangrene; K21.9 Gastro-esophageal reflux disease without esophagitis; E13.9 Other specified diabetes mellitus without complications; G90.519 Complex regional pain syndrome I of unspecified upper limb; I10 Essential (primary) hypertension; G47.33 Obstructive sleep apnea (adult) (pediatric); E78.49 Other hyperlipidemia; E55.9 Vitamin D deficiency, unspecified; E89.0 Postprocedural hypothyroidism; Z79.84 Long term (current) use of oral hypoglycemic drugs; Z79.85 Long-term (current) use of injectable non-insulin antidiabetic drugs; E66.9 Obesity, unspecified; Z68.28 Body mass index [BMI] 28.0-28.9, adult
CPT/HCPCS: 43249; 82948; C1726; J2704; J7120

== ENCOUNTER 2024-05-24 08:24 | Outpatient (CLI) | payer BC, SELFPAY ==
--- NOTE | 2024-05-24 08:31 | ECHO_ITS ---
Patient Info Name: Aundrea Rao Age: 64 years : 1960 Gender: Female Ht: 68 in Wt: 185 lbs BSA: 2.03 m2 HR: 65 bpm BP: 145 / 87 mmHg Heart Rhythm: Sinus Rhythm Technical Quality: Good Exam Date: 05/24/2024 8:53 AM Exam Location: Echo Lab Patient Status: Outpatient Admit Date: 05/24/2024 Staff Ordering Physician: Fabi Harris DO Museum Attendant: Diaz Bryant RDCS Attending Provider: Fabi Harris DO Referring Physician: Steven HAIR; Exam Type: CA echo doppler color flow Study Info Indications - murmur Complete two-dimensional, color flow and Doppler transthoracic echocardiogram is performed. Summary 1. Complete two-dimensional, color flow and Doppler transthoracic echocardiogram is performed. 2. Left ventricular chamber dimension is normal. 3. Left ventricular systolic function is normal, estimated at 60-65%. 4. The left ventricular diastolic function is normal. 5. E/e' 6 is not elevated. 6. There is mild aortic valve sclerosis. 7. There is trace mitral valve regurgitation. 8. There is trace tricuspid valve regurgitation. 9. No pulmonary hypertension, estimated pulmonary arterial systolic pressure is 18 mmHg. Left Ventricle E/e' 6 is not elevated. Left ventricular chamber dimension is normal. Left ventricular systolic function is normal, estimated at 60-65%. The left ventricular diastolic function is normal. Right Ventricle Right ventricular systolic function is normal and with normal TAPSE 2.5 cm. Right ventricular chamber dimension is normal. Left Atria Left atrial chamber dimension is normal. Right Atria Right atrial chamber dimension is normal. Aortic Valve The aortic valve is trileaflet. There is mild aortic valve sclerosis. There is no aortic valve stenosis. There is no aortic valve regurgitation. Pulmonic Valve There is no pulmonic regurgitation. Mitral Valve There is no mitral valve stenosis. There is trace mitral valve regurgitation. Tricuspid Valve There is trace tricuspid valve regurgitation. No pulmonary hypertension, estimated pulmonary arterial systolic pressure is 18 mmHg. Pericardium/Pleural There is no pericardial effusion. Inferior Vena Cava Normal inferior vena cava with >50% collapse upon inspiration consistent with normal right atrial pressure, 5 mmHg. Aorta The aortic root size at the sinus of Valsalva is normal. Left Ventricular Outflow Tract Name Value Normal LVOT 2D LVOT Diameter 2.2 cm LVOT Doppler LVOT Peak Gradient 2 mmHg LVOT Mean Gradient 2 mmHg LVOT VTI 21 cm LVOT VTI/AV VTI Ratio 0.7 LVOT Stroke Volume 80 ml LVOT CO 5.1 l/min LVOT CI 2.5 l/min/m2 Pulmonic Valve Name Value Normal PV Doppler PV Peak Gradient 4 mmHg M
== END 2024-05-24 08:25 | disposition home or self-care (01) ==
PROVIDERS: PCP Family Medicine; Visit Provider Family Medicine
DX: R01.1 Cardiac murmur, unspecified (principal)
CPT/HCPCS: 93306

== ENCOUNTER 2024-06-22 15:29 | Outpatient (CLI) | payer BC, SELFPAY ==
--- NOTE | ~2024-06-22 | MM_ITS ---
EXAMINATION: MM screening shade BI w cara HISTORY: Screening TECHNIQUE: Craniocaudal and mediolateral oblique 3-D tomosynthesis images were obtained and synthetic 2-D images were generated. CAD analysis was submitted and interpreted. COMPARISON: Comparison to multiple prior studies sequentially, with oldest reviewed study dated 06/19. BREAST PARENCHYMAL COMPOSITION: Not dense: There are scattered areas of fibroglandular density. FINDINGS: There is no evidence of suspicious mass, calcification, or architectural distortion to sugg est malignancy in either breast. There has been no suspicious interval change. IMPRESSION: 1. No mammographic evidence of malignancy. 2. Recommend routine screening mammography in one year. BI-RADS Category 1: Negative Reviewed, dictated and finalized at location B. SFORMATION ARCHITECT
== END 2024-06-22 15:30 | disposition home or self-care (01) ==
LOC: ANHIMG 15:29
PROVIDERS: PCP Family Medicine; Visit Provider Family Medicine
DX: Z12.31 Encounter for screening mammogram for malignant neoplasm of breast (principal)
CPT/HCPCS: 77063; 77067

== ENCOUNTER 2024-08-29 12:42 | Emergency (ER) | payer OTHER, SELFPAY ==
--- NOTE | ~2024-08-29 | XR_ITS ---
XR knee RT 3V DATE: 08/29/2024 13:35 INDICATION: Fall today. Knee pain. TECHNIQUE: 4 views including crosstable lateral COMPARISON: None FINDINGS: Status post right total knee arthroplasty with patellar resurfacing. No fracture, dislocation, periosteal reaction or bone destruction is detected. Osteopenia. IMPRESSION: No fracture or dislocation or joint effusion Osteopenia Status post right total knee arthroplasty with patellar resurfacing Reviewed, dictated and finalized at location A. GHT CAR CLEANER
--- NOTE | ~2024-08-29 | XR_ITS ---
XR elbow RT min 3V DATE: 08/29/2024 13:36 INDICATION: Fall. Right elbow injury, pain TECHNIQUE: 4 views COMPARISON: None FINDINGS: Minimal spurring at the dorsal aspect of the olecranon process and the anterior coracoid pr ocess. No fracture or dislocation or joint effusion. No periosteal reaction or bone destruction. IMPRESSION: No fracture or dislocation or joint effusion Reviewed, dictated and finalized at location A. GER CLINICAL RESEARCH
--- NOTE | ~2024-08-29 | XR_ITS ---
XR hand RT min 3V DATE: 08/29/2024 13:37 INDICATION: Fall today. Fifth metacarpal pain. TECHNIQUE: 3 views of right hand COMPARISON: None FINDINGS: There is mild to moderate polyarticular osteoarthritis involving particularly the triscaphe joint. There is also involvement of the first carpometacarpal and multiple interphalangeal joints. Osteopenia. No fracture, dislocation, periosteal reaction or bone destruction is detected. IMPRESSION: Mild to moderate polyarticular osteoarthritis No fracture or dislocation Reviewed, dictated and finalized at location A. IX DRIER TENDER
--- NOTE | 2024-08-29 12:53 | ED_ITS ---
HPI - General Adult General Chief complaint: Extremity Injury, Upper Stated complaint: fall Time Seen by Provider: 08/29/24 12:54 Source: patient Mode of arrival: ambulatory Limitations: no limitations History of Present Illness HPI narrative: 64-year-old female patient presents to the [facility] with complaints of right elbow pain, right knee pain, right hand pain, and right-sided facial pain. Patient states she was at [employer] taking some microphone up to the staged states that she tripped and fell on her face. Patient denies loss of consciousness. Patient does have some ice on the lip at this time. Patient denies taking any blood thinners that she is aware of. Related Data Home Medications ?Medication ?Instructions ?Recorded ?Confirmed ?Last Taken ?Type cetirizine 10 mg capsule 10 mg PO DAILY 07/30/19 06/23/24 04/15/24 History cyanocobalamin (vitamin B-12) 1,000 mcg PO DAILY 07/30/19 06/23/24 04/15/24 History 1,000 mcg capsule diphenhydramine HCl 25 mg capsule 50 mg PO HS Insomnia 01/30/22 06/23/24 04/15/24 History (Benadryl) fluticasone propionate 50 1 spray intranasal DAILY 12/18/22 06/23/24 04/15/24 History mcg/actuation nasal spray,suspension (Flonase Allergy Relief) icosapent ethyl 1 gram capsule 2 g PO BID 02/25/24 06/23/24 04/15/24 History (Vascepa) Allergies Allergy/AdvReac Type Severity Reaction Status Date / Time Penicillins Allergy Mild Hives Verified 08/29/24 12:56 sulfamethoxazole (From Allergy Mild Hives Verified 08/29/24 12:56 Septra) trimethoprim (From Septra) Allergy Mild Hives Verified 08/29/24 12:56 Review of Systems Review of Systems: CONSTITUTIONAL: Denies fever, chills, or sweats. EYES: Denies visual changes, redness, or discharge. Positive right sided eye pain and cheek pain ENT: Denies rhinorrhea, congestion, sore throat, or otalgia. positive right- sided upper lip pain CARDIOVASCULAR: Denies chest pain, palpitations, or edema. RESPIRATORY: Denies cough or dyspnea. GASTROINTESTINAL: Denies abdominal pain, nausea, vomiting, or diarrhea. GENITOURINARY: Denies dysuria or hematuria. SKIN: Denies rash or itching. MUSCULOSKELETAL: Denies back pain, joint pain, or myalgia. positive right hand pain, right elbow pain and right knee pain NEUROLOGIC: Denies headache, numbness, or weakness. PSYCHIATRIC: Denies anxiety or depression. [facility] Past Medical History Medical History Tarsal tunnel syndrome of right side Type 2 diabetes mellitus with hyperglycemia, without long-term current use of insulin Heart palpitations Diaphragmatic hernia Body mass index (BMI) 23 or greater (03/19/19) Unspecified essential hypertension Subacute maxillary sinusitis Pure hyperglyceridemia Primary osteoarthritis of right knee Preop cardiovascular exam Other hyperlipidemia Other and unspecified hyperlipidemia Obesity (BMI 30.0-34.9) Multinodular goiter Low O2 saturation Encounter for immunization (08/19/18) Encounter for Hemoccult screening Disease of esophagus, unspecified Dietary counseling and surveillance Diabetes 1.5, managed as type 2 Complex regional pain syndrome I of unspecified upper limb Pain in wrist Osteoarthritis of hand, left Seborrheic keratoses, inflamed Skin tags, multiple acquired Dysphagia esophageal web [id number] egd Radicular pain in left arm Obstructive sleep apnea History of esophageal dilatation due to esophageal spasm Vitamin D deficiency Loose right total knee arthroplasty Heart palpitations Elevated troponin Chest pain Calcium kidney stones Palpitations Postablative hypothyroidism Hypothyroidism (acquired) Essential (primary) hypertension Gastro-esophageal reflux disease without esophagitis Thyrotoxicosis, unspecified without thyrotoxic crisis or storm thyroid radiation Diabetes mellitus Hyperthyroidism with history of radioactive iodine treatment Surgical History Surgical History History of cardiac catheterization April 2016 History of bilateral carpal tunnel release S/P cystoscopy with ureteral stent placement left renal stone 05/2020 History of bladder suspension procedure Hx of cholecystectomy Status post radioactive iodine thyroid ablation Hx of tonsillectomy History of appendectomy H/O: hysterectomy Knee joint replacement status 2019 Family History Family History Father Diabetes mellitus Hypertension Heart disease CHF (congestive heart failure) Hearing loss Hyperlipidemia Sibling Migraines Mother Hypertension Cataract Glaucoma Skin cancer Osteoarthritis Heart disease Social History Social History (Reviewed 08/29/24 @ 12:54 by EVI [place] Social History: 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 She lives in [facility] with her of 35 years. They have 1 cat. She has 2 adult children are healthy. [id number] Smoking status: Never smoker Second hand tobacco smoke exposure: No Alcohol intake: never Substance use: never Substance use type: does not use Do You Feel Safe in your Home?: Yes Lack of Transportation: No Lack of Food: Never True Current Housing: I Have Housing Concerned About Future Housing: No Difficulty Paying Gas/Electric Bills: No Difficulty Paying for Meds: No Currently Unemployed: No Education: Bachelor's Degree Difficulty w/ Childcare or Family Care: No Living arrangements: with family Occupation/Education: occupation Gender identity (if verbalized by the patient): Female Sexual Orientation (if Verbalized by the Patient): Straight or Heterosexual Spiritual care concerns: No Agree to blood products: Yes Comments At the time of my signature I agree with nursing past medical history, surgical, social, and family history. There is no relevant family history pertinent to the presenting complaint. Exam Narrative: GENERAL: Well-appearing, well-nourished, and in no acute distress. HEAD: Normocephalic, atraumatic. No trigger point for headache. No palpable scalp tenderness or obvious deformity noted. No surface trauma noted. EYES: PERRLA and EOM intact without limitation or complaint of pain, periorbital soft tissue swelling with ecchymosis on the right side ,no erythema, warmth. tenderness noted to the right-sided Orbital bone, no obvious deformity. No crusting or swelling.no tearing or draining.No photophobia. No nystagmus No FB or lesion on lid eversion. Corneas grossly clear, no obvious FB or hyphens/hypopyon. No injection to sclera. Lids and lashes clear. ENT: Nares clear, no rhinorrhea or epistaxis. Mucous membranes moist. patient has approximately 0.5 cm superficial laceration noted to the right-sided inner upper lip. There is so a hematoma present with surrounding ecchymosis and bleeding appears to be under control. All teeth present no chipping of the teeth or missing teeth noted. NECK: Supple, no lymphadenopathy. No surface trauma, no soft tissue or muscle tenderness or spasm noted. Trachea midline. No subq emphysema or crepitus. No emil tenderness, step-offs or deformity to firm Palpation at posterior midline. FROM without limitation or pain, normal flexion, extension,Lateral bending, rotation, and axial load. CHEST: Clear to auscultation. No respiratory distress. HEART: Regular rate and rhythm. No murmur heard. Normal peripheral pulses. ABDOMEN: Soft, nontender, nondistended, normal active bowel sounds. EXTREMITIES: The R hand is without obvious asymmetry or deformity when compared to the L hand. No swelling, erythema, atrophy, or obvious deformity. surface trauma noted, no open wounds, nail avulsion, tissue avulsion, partial or complete amputation, subungual hematoma, bony deformity. Normal cascade of fingers. Normal flexion and extension of fingers. FDS and FDP intact aganist restistance. No focal fullness, thobbing pain, swelling of fingertip. tenderness to palpation of of 4th and 5th metacarpal. Pulses and cap refill. The R elbow is without obvious asymmetry or deformity when compared to the R/L elbow. abrasion noted to the right elbow, mild ecchymosis or soft tissue swelling. No bony tenderness to palpation of the lateral or medial epicondyle, olecranon, or radial head. No epicondylar or axillary lymphadenopathy. Normal flexion, extension, supination, pronation. Normal muscle strength. Intact motor and sensation of ulnar, median, and radial nerves. Patient is able to bear weight and ambulate without pain. No surface trauma, STS, or obvious effusion. No overlying erythema or warmth. The R knee is without obvious asymmetry or deformity when compared to the L knee. Patient is able to do deep knee bend with symmetry, fully extend knee, internal and external rotation. there is some popping noted during the deep knee bend exam. Surgical scar noted to the right knee. Mild tendernss to palpation of the patella, no effusion or ballottement. No tenderness over the infrapatellar tendon. No tenderness over the medial or lateral joint lone ot the medial or lateral tibial plateaus. no tenderness over the proximal fibular head. no tenderness, fullness, or mass of the popliteal fossa. No quadriceps tenderness. No laxity of the ACL, PCL, MCL, or LCL. No collateral ligament laxity to valgus or vargus stress. Negative carlyle/drawer sign. Negative Raisa. Negative Apley compression and/or distraction. Distal motor and neurovascular status intact. SKIN: Warm, dry, no rash. NEURO: Alert and oriented x4, GCS 15. Cranial nerves II through XII grossly intact. No focal neurological deficits. Normal muscle strength and tone. Normal deep tendon reflexes. Negative Babinski, normal finger to nose coordination he had normal heel to raymond glide. Speech is clear. Normal gait. Negative Romberg and no pronator drift Course Course Level of Care: Express Care Visit Reevaluation(s) Reevaluation #1: Re-evaluated patient notified her that all of her x-rays are negative for acute fractures. Discussed with her we are going to be sending her to the ER for a CT to assess for an orbital fracture of the right eye. Patient verbalized understanding denies any other questions or concerns at this time. Date: 08/29/24 Time: 14:01 Vital Signs Vital signs: Vital Signs Temperature 36.7 C 08/29/24 13:04 Pulse Rate 99 08/29/24 13:04 Respiratory Rate 18 08/29/24 13:04 Blood Pressure 122/68 08/29/24 13:04 Pulse Oximetry 99 08/29/24 13:04 Oxygen Delivery Room Air 08/29/24 13:04 Temperature 36.7 C 08/29/24 13:04 Pulse Rate 99 08/29/24 13:04 Respiratory Rate 18 08/29/24 13:04 Blood Pressure 122/68 08/29/24 13:04 Pulse Oximetry 99 08/29/24 13:04 Oxygen Delivery Room Air 08/29/24 13:04 Vital signs reviewed. Transfer Transfered to: [facility] Transportation: Other ( private vehicle with ) Transfer rationale: CT for possible orbital bone fracture Accepting physician: Dr. Sandoval Medical Decision Making [facility] Narrative Medical decision making narrative: Plan of care for patient is to clean the wound on the lip however I do not feel that is needs any type of suturing at this time given how superficial it is in that the bleeding has been under control. Will x-ray the right elbow, right hand and right knee in the Express Care today to rule out any acute fractures I am highly concerned that there could be a right-sided orbital bone fracture and therefore we most likely will send to the ER for CT to rule this out patient is aware the plan of care and is in agreement at this time. Differential Diagnosis Differential Diagnosis: Differential diagnosis: High concerns for possible right-sided orbital bone fracture due to ecchymosis, bruising and tenderness. Superficial laceration to the right upper lip. strain/ sprain versus fracture to the right elbow, right hand and right knee. Vital Signs Vital Signs: Vital Signs Temperature 36.7 C 08/29/24 13:04 Pulse Rate 99 08/29/24 13:04 Respiratory Rate 18 08/29/24 13:04 Blood Pressure 122/68 08/29/24 13:04 Pulse Oximetry 99 08/29/24 13:04 Oxygen Delivery Room Air 08/29/24 13:04 Temperature 36.7 C 08/29/24 13:04 Pulse Rate 99 08/29/24 13:04 Respiratory Rate 18 08/29/24 13:04 Blood Pressure 122/68 08/29/24 13:04 Pulse Oximetry 99 08/29/24 13:04 Oxygen Delivery Room Air 08/29/24 13:04 Critical Care Time Critical Care Time Critical Care Time: No Discharge Plan Discharge Clinical Impression: Fall Patient Disposition: Acute Care Hospital Condition: Stable Patient Language: Lithuanian Prescriptions: No Action icosapent ethyl [Vascepa] 1 gram capsule 2 g PO BID (DME) CPAP supplies See Rx Instructions .Route .MEDSUPPLY Qty: 1 0RF Rx Instructions: Rx: new CPAP mask, filters/tubing DME: IV & Resp Care (DME) cpap See Rx Instructions .Route .MEDSUPPLY Qty: 1 0RF Rx Instructions: Rx: Resmed AutoPAP 5-15 cm H2O. 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 DME: [facility] montelukast 10 mg tablet 10 mg PO QHS Qty: 90 3RF cetirizine 10 mg capsule 10 mg PO DAILY cyanocobalamin (vitamin B-12) 1,000 mcg capsule 1,000 mcg PO DAILY fluticasone propionate [Flonase Allergy Relief] 50 mcg/actuation spray,suspension 1 spray intranasal DAILY Rx Instructions: administer into each nostril diphenhydramine HCl [Benadryl] 25 mg capsule 50 mg PO HS (DME) blood sugar diagnostic, disc Strip See Rx Instructions .Route Qty: 100 3RF Rx Instructions: and lancets bid metformin 500 mg tablet extended release 24 hr See Rx Instructions .ROUTE .COMPLEX Qty: 360 2RF Dose Instruction: Take 2 tablets by mouth twice daily Rx Instructions: Take 2 tablets by mouth twice daily ferrous sulfate [iron] 325 mg (65 mg iron) tablet 325 mg PO DAILY Qty: 60 5RF Rx Instructions: start with 1 tablet daily then increase to twice daily as tolerated. omeprazole 40 mg capsule,delayed release(DR/EC) 40 mg PO DAILY Qty: 90 1RF metoprolol tartrate 50 mg tablet 50 mg PO BID Qty: 180 1RF Rx Instructions: TAKE 1 TABLET BY MOUTH EVERY DAY IN THE MORNING AND 1 TABLET IN THE EVENING levothyroxine 112 mcg tablet See Rx Instructions .ROUTE .COMPLEX Qty: 90 1RF Dose Instruction: TAKE 1 TABLET BY MOUTH ONCE DAILY SKIP FRIDAY Rx Instructions: TAKE 1 TABLET BY MOUTH ONCE DAILY SKIP FRIDAY Jardiance 25 mg tablet See Rx Instructions .ROUTE .COMPLEX Qty: 90 1RF Dose Instruction: TAKE 1 TABLET BY MOUTH EVERY DAY Rx Instructions: TAKE 1 TABLET BY MOUTH EVERY DAY losartan 25 mg tablet 25 mg PO DAILY 90 Days Qty: 90 2RF Trulicity 1.5 mg/0.5 mL pen injector See Rx Instructions .ROUTE .COMPLEX Qty: 6 1RF Dose Instruction: INJECT 1.5MG SUBCUTANEOUSLY ONCE WEEKLY Rx Instructions: INJECT 1.5MG SUBCUTANEOUSLY ONCE WEEKLY hydrochlorothiazide 12.5 mg tablet See Rx Instructions .ROUTE .COMPLEX Qty: 90 1RF Dose Instruction: Take 1 tablet by mouth once daily Rx Instructions: Take 1 tablet by mouth once daily dicyclomine 10 mg capsule 10 mg PO TID PRN (Reason: abdominal pain) Qty: 90 0RF (DME) lancets [OneTouch Delica Plus Lancet] 33 gauge misc See Rx Instructions .Route Qty: 100 1RF Rx Instructions: check 3 times a week (DME) OneTouch Verio test strips Strip See Rx Instructions .Route Qty: 100 1RF Rx Instructions: check 3 times a week lovastatin 40 mg tablet See Rx Instructions .ROUTE .COMPLEX Qty: 90 1RF Dose Instruction: Take 1 tablet by mouth once daily Rx Instructions: Take 1 tablet by mouth once daily Follow-up/Referrals: Mireya Montgomery MD [Primary Care Provider] - Time of Disposition: 13:59
[2024-08-29 13:04] VITALS: BP 122/68; PULSE 99; RESP 18; TEMP 36.7; O2SAT 99
== END 2024-08-29 14:00 | disposition short-term general hospital (02) ==
PROVIDERS: Emergency Provider Nurse Practitioner Family; PCP Family Medicine
DX: S01.511A Laceration without foreign body of lip, initial encounter (principal); W01.0XXA Fall on same level from slipping, tripping and stumbling without subsequent striking against object, initial encounter; S09.93XA Unspecified injury of face, initial encounter; M25.521 Pain in right elbow; M79.641 Pain in right hand; M25.561 Pain in right knee; I10 Essential (primary) hypertension; E78.1 Pure hyperglyceridemia; E78.49 Other hyperlipidemia; E66.9 Obesity, unspecified; Z68.29 Body mass index [BMI] 29.0-29.9, adult; E13.21 Other specified diabetes mellitus with diabetic nephropathy; Z79.84 Long term (current) use of oral hypoglycemic drugs; K21.9 Gastro-esophageal reflux disease without esophagitis; E03.9 Hypothyroidism, unspecified; M17.11 Unilateral primary osteoarthritis, right knee; M19.042 Primary osteoarthritis, left hand
CPT/HCPCS: 73080; 73130; 73562; 99214; G0463

== ENCOUNTER 2024-08-29 14:22 | Emergency (ER) | payer OTHER, SELFPAY ==
--- NOTE | ~2024-08-29 | CT_ITS ---
History: Fall PROCEDURE: CT cervical spine and facial bones without intravenous contrast. COMPARISON: None TECHNIQUE: Multiple contiguous axial images of the cervical spine were performed without the administration of i ntravenous contrast. DLP: 427 mGy-cm FINDINGS within the cervical spine: Straightening and slight reversal of the normal curvature of the cervical spine is identified, likely muscular in origin. No acute fractures are present. Scarring within the bilateral apices. Significant calcified atherosclerotic disease within the vertebral arteries. No soft tissue abnormality is present. The airway is patent. Significant degenerative disease is identified within the bones of the cervical spine with osteophyte formation, disc space narrowing, endplate changes and facet arthropathy. 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 Findings within the facial bones: No acute fracture or dislocation. Impression: Straightening and slight reversal of the normal curvature of the cervical spine, likely muscular in o rigin. Degenerative disease, without acute fracture within the cervical spine or the facial bones. Reviewed, dictated and finalized at location A. NICAL SALES MANAGER Impression: Straightening and slight reversal of the normal curvature of the cervical spine , likely muscular in origin. Degenerative disease, without acute fracture within the cervical spine or the f acial bones.
--- NOTE | ~2024-08-29 | CT_ITS ---
History: Fall, head injury PROCEDURE: CT head without contrast. COMPARISON: None TECHNIQUE: Axial imaging of the head performed from the skull base to the vertex without IV contrast. Sagittal a nd coronal reformations obtained. DLP: 605 mGy-cm FINDINGS: The ventricles are normal in size, shape and position. There is no mass, mass effect or midline shift. There is no abnormal extra-axial fluid collection or intracranial hemorrhage. Visualized paranasal sinuses are clear. The mastoid air cells are well aerated. No acute displaced fractures within the overlying cranium. Hyperostosis frontalis is incidentally noted. Impression: No acute intracranial hemorrhage or suspicious mass effect. Reviewed, dictated and finalized at location A. GETTER Impression: No acute intracranial hemorrhage or suspicious mass effect.
[2024-08-29 14:26] VITALS: BP 134/69; PULSE 81; RESP 17; TEMP 36.6; O2SAT 99
--- NOTE | 2024-08-29 16:20 | ED.HEATRA ---
HPI - Head Injury General Chief complaint: Head Injury Stated complaint: fall, facial trauma Time Seen by Provider: 08/29/24 16:20 Focused HPI: This is a 64-year-old female presents to the emergency department after a fall today head injury. Reports she tripped and fell forward. She did not lose consciousness. Does not believe she is on blood thinners. Was initially evaluated at urgent care with negative x-rays. Sent to the ER for further scans. GENERAL: Well-appearing, well-nourished, and in no acute distress. HEAD: Normocephalic. Contusions of the right eyelid CHEST: Clear to auscultation. ?No respiratory distress. HEART: Regular rate and rhythm.? NEURO: ?Alert and oriented x3. Patient screened in triage and initial orders placed.? ?Additional care and disposition to be based upon?diagnostic testing and treatment. Related Data Home Medications ?Medication ?Instructions ?Recorded ?Confirmed ?Last Taken ?Type cetirizine 10 mg capsule 10 mg PO DAILY 07/30/19 06/23/24 04/15/24 History cyanocobalamin (vitamin B-12) 1,000 mcg PO DAILY 07/30/19 06/23/24 04/15/24 History 1,000 mcg capsule diphenhydramine HCl 25 mg capsule 50 mg PO HS Insomnia 01/30/22 06/23/24 04/15/24 History (Benadryl) fluticasone propionate 50 1 spray intranasal DAILY 12/18/22 06/23/24 04/15/24 History mcg/actuation nasal spray,suspension (Flonase Allergy Relief) icosapent ethyl 1 gram capsule 2 g PO BID 02/25/24 06/23/24 04/15/24 History (Vascepa) Allergies Allergy/AdvReac Type Severity Reaction Status Date / Time Penicillins Allergy Mild Hives Verified 08/29/24 14:29 sulfamethoxazole (From Allergy Mild Hives Verified 08/29/24 14:29 Sept) trimethoprim (From ) Allergy Mild Hives Verified 08/29/24 14:29 Review of Systems Review of Systems: CONSTITUTIONAL: Denies fever EYES: Denies visual changes GASTROINTESTINAL: Denies vomiting NEUROLOGIC: Denies numbness, or weakness. All systems reviewed & are unremarkable except as noted in HPI and below PMFSH Past Medical History Medical History Tarsal tunnel syndrome of right side Type 2 diabetes mellitus with hyperglycemia, without long-term current use of insulin Heart palpitations Diaphragmatic hernia Body mass index (BMI) 23 or greater (03/19/19) Unspecified essential hypertension Subacute maxillary sinusitis Pure hyperglyceridemia Primary osteoarthritis of right knee Preop cardiovascular exam Other hyperlipidemia Other and unspecified hyperlipidemia Obesity (BMI 30.0-34.9) Multinodular goiter Low O2 saturation Encounter for immunization (08/19/18) Encounter for Hemoccult screening Disease of esophagus, unspecified Dietary counseling and surveillance Diabetes 1.5, managed as type 2 Complex regional pain syndrome I of unspecified upper limb Pain in wrist Osteoarthritis of hand, left Seborrheic keratoses, inflamed Skin tags, multiple acquired Dysphagia esophageal web 817. egd Radicular pain in left arm Obstructive sleep apnea History of esophageal dilatation due to esophageal spasm Vitamin D deficiency Loose right total knee arthroplasty Heart palpitations Elevated troponin Chest pain Calcium kidney stones Palpitations Postablative hypothyroidism Hypothyroidism (acquired) Essential (primary) hypertension Gastro-esophageal reflux disease without esophagitis Thyrotoxicosis, unspecified without thyrotoxic crisis or storm thyroid radiation Diabetes mellitus Hyperthyroidism with history of radioactive iodine treatment Surgical History Surgical History History of cardiac catheterization April 2016 History of bilateral carpal tunnel release S/P cystoscopy with ureteral stent placement left renal stone 05/2020 History of bladder suspension procedure Hx of cholecystectomy Status post radioactive iodine thyroid ablation Hx of tonsillectomy History of appendectomy H/O: hysterectomy Knee joint replacement status 2019 Family History Family History Father Diabetes mellitus Hypertension Heart disease CHF (congestive heart failure) Hearing loss Hyperlipidemia Sibling Migraines Mother Hypertension Cataract Glaucoma Skin cancer Osteoarthritis Heart disease Social History Social History Social History: 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 She lives in [facility] with her of 35 years. They have 1 cat. She has 2 adult children are healthy. [id number] Smoking status: Never smoker Second hand tobacco smoke exposure: No Alcohol intake: never Substance use: never Substance use type: does not use Do You Feel Safe in your Home?: Yes Lack of Transportation: No Lack of Food: Never True Current Housing: I Have Housing Concerned About Future Housing: No Difficulty Paying Gas/Electric Bills: No Difficulty Paying for Meds: No Currently Unemployed: No Education: Bachelor's Degree Difficulty w/ Childcare or Family Care: No Living arrangements: with family Occupation/Education: occupation Gender identity (if verbalized by the patient): Female Sexual Orientation (if Verbalized by the Patient): Straight or Heterosexual Spiritual care concerns: No Agree to blood products: Yes Exam Narrative: GENERAL: Well-appearing, well-nourished, and in no acute distress. HEAD: Normocephalic. Ecchymosis of the right eyelid. Contusion to the upper lip EYES: PERRLA and EOMI. ENT: Nares clear, no rhinorrhea or epistaxis. Mucous membranes moist. Oropharynx without tonsillar hypertrophy exudate or other lesions. Bilateral TMs pearly lai non-bulging NECK: Supple. No adenopathy or masses. CHEST: Clear to auscultation. No respiratory distress. No wheezes rales or rhonchi HEART: Regular rate and rhythm. No murmur heard. Normal peripheral pulses. EXTREMITIES: Normal range of motion. No edema. SKIN: Warm, dry, no rash. NEURO: No focal deficits. Alert and oriented x3. Cranial nerves 2-12 grossly intact. Normal gait PSYCH: Normal mood and affect Course Vital Signs Vital signs: Vital Signs Temperature 97.9 F 08/29/24 14:26 Pulse Rate 81 08/29/24 14:26 Respiratory Rate 17 08/29/24 14:26 Blood Pressure 134/69 08/29/24 14:26 Pulse Oximetry 99 08/29/24 14:26 Oxygen Delivery Room Air 08/29/24 14:26 Temperature 97.9 F 08/29/24 14:26 Pulse Rate 81 08/29/24 14:26 Respiratory Rate 17 08/29/24 14:26 Blood Pressure 134/69 08/29/24 14:26 Pulse Oximetry 99 08/29/24 14:26 Oxygen Delivery Room Air 08/29/24 14:26 MDM - Head Injury MDM Narrative Medical decision making narrative: Patient presents emergency department after a fall today with head injury. She is neurologically intact. CT brain, cervical spine and facial bones without acute findings. Patient and family updated on workup and agree with plan of care. She is to follow up with primary provider. She was given warnings to return to the ER Differential Diagnosis Differential diagnosis: Likely concussion without loss of consciousness, closed head injury, subarachnoid hematoma and subdural hematoma Imaging Data Radiologist's impression: ITS Impressions Head CT 08/29/24 17:15 Impression: No acute intracranial hemorrhage or suspicious mass effect. Head/Cervical Spine/Facial Bones CT 08/29/24 17:16 Impression: Straightening and slight reversal of the normal curvature of the cervical spine, likely muscular in origin. Degenerative disease, without acute fracture within the cervical spine or the facial bones. Critical Care Time Critical Care Time Critical Care Time: No Discharge Plan Discharge Clinical Impression: Head injury, Black eye of right side, Contusion of lip Patient Disposition: Home, Self-Care Condition: Stable Instructions: Black Eye (ED), Concussion (ED) Additional Instructions: Return to the emergency department if you experience fever, chest pain, shortness of breath, abdominal pain with nausea and vomiting, weakness, numbness/tingling, or any other symptoms that are concerning to you. Follow up with primary care doctor Patient Language: Faroese Prescriptions: No Action icosapent ethyl [Vascepa] 1 gram capsule 2 g PO BID (DME) CPAP supplies See Rx Instructions .Route .MEDSUPPLY Qty: 1 0RF Rx Instructions: Rx: new CPAP mask, filters/tubing DME: IV & Resp Care (DME) cpap See Rx Instructions .Route .MEDSUPPLY Qty: 1 0RF Rx Instructions: Rx: Resmed AutoPAP 5-15 cm H2O. Patient can't flower buncher or picker until early July DME: IV & Resp Care montelukast 10 mg tablet 10 mg PO QHS Qty: 90 3RF cetirizine 10 mg capsule 10 mg PO DAILY cyanocobalamin (vitamin B-12) 1,000 mcg capsule 1,000 mcg PO DAILY fluticasone propionate [Flonase Allergy Relief] 50 mcg/actuation spray,suspension 1 spray intranasal DAILY Rx Instructions: administer into each nostril diphenhydramine HCl [Benadryl] 25 mg capsule 50 mg PO HS (DME) blood sugar diagnostic, disc Strip See Rx Instructions .Route Qty: 100 3RF Rx Instructions: and lancets bid metformin 500 mg tablet extended release 24 hr See Rx Instructions .ROUTE .COMPLEX Qty: 360 2RF Dose Instruction: Take 2 tablets by mouth twice daily Rx Instructions: Take 2 tablets by mouth twice daily ferrous sulfate [iron] 325 mg (65 mg iron) tablet 325 mg PO DAILY Qty: 60 5RF Rx Instructions: start with 1 tablet daily then increase to twice daily as tolerated. omeprazole 40 mg capsule,delayed release(DR/EC) 40 mg PO DAILY Qty: 90 1RF metoprolol tartrate 50 mg tablet 50 mg PO BID Qty: 180 1RF Rx Instructions: TAKE 1 TABLET BY MOUTH EVERY DAY IN THE MORNING AND 1 TABLET IN THE EVENING levothyroxine 112 mcg tablet See Rx Instructions .ROUTE .COMPLEX Qty: 90 1RF Dose Instruction: TAKE 1 TABLET BY MOUTH ONCE DAILY SKIP FRIDAY Rx Instructions: TAKE 1 TABLET BY MOUTH ONCE DAILY SKIP FRIDAY Jardiance 25 mg tablet See Rx Instructions .ROUTE .COMPLEX Qty: 90 1RF Dose Instruction: TAKE 1 TABLET BY MOUTH EVERY DAY Rx Instructions: TAKE 1 TABLET BY MOUTH EVERY DAY losartan 25 mg tablet 25 mg PO DAILY 90 Days Qty: 90 2RF Trulicity 1.5 mg/0.5 mL pen injector See Rx Instructions .ROUTE .COMPLEX Qty: 6 1RF Dose Instruction: INJECT 1.5MG SUBCUTANEOUSLY ONCE WEEKLY Rx Instructions: INJECT 1.5MG SUBCUTANEOUSLY ONCE WEEKLY hydrochlorothiazide 12.5 mg tablet See Rx Instructions .ROUTE .COMPLEX Qty: 90 1RF Dose Instruction: Take 1 tablet by mouth once daily Rx Instructions: Take 1 tablet by mouth once daily dicyclomine 10 mg capsule 10 mg PO TID PRN (Reason: abdominal pain) Qty: 90 0RF (DME) lancets [OneTouch Delica Plus Lancet] 33 gauge misc See Rx Instructions .Route Qty: 100 1RF Rx Instructions: check 3 times a week (DME) OneTouch Verio test strips Strip See Rx Instructions .Route Qty: 100 1RF Rx Instructions: check 3 times a week lovastatin 40 mg tablet See Rx Instructions .ROUTE .COMPLEX Qty: 90 1RF Dose Instruction: Take 1 tablet by mouth once daily Rx Instructions: Take 1 tablet by mouth once daily Follow-up/Referrals: Mireya Montgomery MD [Primary Care Provider] -
[2024-08-29] MEDS: TETANUS,DIPHTHERIA,AC PERTUSSIS ADULT (0.5 ML) BOOSTRIX IM (18:09)
== END 2024-08-29 18:16 | disposition home or self-care (01) ==
PROVIDERS: Emergency Provider Physician Assistant; PCP Family Medicine
DX: S00.11XA Contusion of right eyelid and periocular area, initial encounter (principal); S00.531A Contusion of lip, initial encounter; Z23 Encounter for immunization; I10 Essential (primary) hypertension; E13.9 Other specified diabetes mellitus without complications; E78.49 Other hyperlipidemia; E89.0 Postprocedural hypothyroidism; E66.9 Obesity, unspecified; Z68.29 Body mass index [BMI] 29.0-29.9, adult; M17.11 Unilateral primary osteoarthritis, right knee; M19.042 Primary osteoarthritis, left hand; G47.33 Obstructive sleep apnea (adult) (pediatric); E55.9 Vitamin D deficiency, unspecified; Z87.442 Personal history of urinary calculi; Z96.651 Presence of right artificial knee joint; Z90.49 Acquired absence of other specified parts of digestive tract; Z90.710 Acquired absence of both cervix and uterus; M47.812 Spondylosis without myelopathy or radiculopathy, cervical region; W01.0XXA Fall on same level from slipping, tripping and stumbling without subsequent striking against object, initial encounter
CPT/HCPCS: 70450; 70486; 72125; 90471; 90715; 99284

== ENCOUNTER 2024-12-29 08:24 | Outpatient (CLI) | payer OTHER, SELFPAY ==
--- OUTSIDE RECORDS SUMMARY | 2024-12-29 08:36 | XMS_ITS | Clinical Summary ---
Author Organization [facility] [address] Address [address] [place] [address] Care Team Providers Care Truss Puller Helper Name Role Phone Jannie Howell MD Primary Care Provider [phone] Allergies Active Allergy Reactions Criticality Noted Date Comments Penicillins Hives Medium 09/25/2020 Sulfa (Sulfonamide Antibiotics) Unknown 03/2021 Sulfamethoxazole-Trimethoprim Hives Medium 2020 Medications metFORMIN XR (GLUCOPHAGE XR) 500 mg 24 hr tablet Take 1,000 mg by mouth 2 (two) times a day 08/26/19 21 Active hydroCHLOROth iazide (HYDRODIURIL) 12.5 mg tablet hydrochlorothiazide 12.5 mg tablet Active levothyroxine (SYNTHROID) 100 mcg tablet Euthyrox 100 mcg tablet Active cyanocobalami n (vitamin B-12) 1,000 mcg tabletIndicat ions:Preventi on of Vitamin B12 Deficiency Take 1,000 mcg by mouth daily Active cetirizine (ZyrTEC) 10 mg tablet daily Active metoprolol tartrate (LOPRESSOR) 50 mg immediate release tablet 2 (two) times a day 07/30/20 20 Active omeprazole (PriLOSEC) 20 mg capsule Take 20 mg by mouth daily 08/24/19 21 Active aspirin 81 mg chewable tablet aspirin 81 mg chewable tablet Active magnesium oxide (MAG-OX) 250 mg (150.8 mg elemental) tabletIndicat ions:hypomagn esemia 250 mg daily Active cholecalcifer ol (Vitamin D3) 5,000 unit tablet Active ascorbic acid (vitamin C) 1,000 mg tablet Take 1,000 mg by mouth daily Active diphenhydrAMI NE (BenadryL) 25 mg capsule Take 25 mg by mouth every 6 (six) hours as needed for itching Active naproxen (NAPROSYN) 250 mg tablet Take by mouth as needed Active acetaminophen (TylenoL) 325 mg tablet Take 650 mg by mouth as needed Active Active Problems No known active problems Surgical History Surgery Date Site/Laterality Comments APPENDECTOMY REPLACEMENT TOTAL KNEE Right HYSTERECTOMY CHOLECYSTECTOMY INCONTINENCE SURGERY CARPAL TUNNEL RELEASE Bilateral TONSILLECTOMY Medical History Medical History Date Comments Hypertension Cardiac rhythm disturbance Obesity Thyroid disease Diabetes (HCC) Sinusitis Allergic rhinitis Acid indigestion Gallstones Anemia Sleep apnea Arthritis Kidney stones Family History Medical History Relation Name Comments Congestive heart failure Father [place] of Diabetes Father Skin cancer Mother heart valve replacement Mother Relation Name Status Comments Brother 1 Alive Brother 2 Alive Father Mother Alive Sister Alive Social History Tobacco Use Types Packs/Day Years Used Date Smoking Tobacco: Never Smokeless Tobacco: Never Alcohol Use Standard Drinks/Week Comments Not Currently 0 (1 standard drink = 0.6 oz pur e alcohol) Personal Safety Answer Date Recorded Getting School Help Needed Not on file 11/01 Comments Unknown Sex and Gender Information Value Date Recorded Sex Assigned at Not on file Legal Sex Female 9:54 AM CLAIMS ADMINISTRATOR Gender Identity Not on file Sexual Orientation Not on file Obstetrics History Last Filed Vital Signs Vital Sign Reading Time Taken Comments Blood Pressure 112/80 09/25/2020 10:37 AM CLAIMS ADMINISTRATOR Pulse 76 09/25/2020 10:37 AM CLAIMS ADMINISTRATOR Temperature - - Respiratory Rate - - Oxygen Saturation 96% 09/25/2020 10:37 AM CLAIMS ADMINISTRATOR Inhaled Oxygen Concentration - - Weight 99.8 kg (220 lb) 10/16/2020 10:34 AM CLAIMS ADMINISTRATOR Height 172.7 cm (5' 8 ) 10/16/2020 10:34 AM CLAIMS ADMINISTRATOR Body Mass Index 33.45 10/16/2020 10:34 AM CLAIMS ADMINISTRATOR Plan of Treatment Not on file Insurance [employer] [place] Care Teams Truss Puller Helper Relationship Specialty Start Date End Date Jannie Howell MD [address] [place] [address] PCP - General 09/14/19
--- OUTSIDE RECORDS SUMMARY | 2024-12-29 08:36 | XMS_ITS | Referral Summary ---
Author Organization [facility] [place] [address] Address [address] [place] [address] Care Team Providers Care Production Planning Manager Name Role Phone Jannie Howell MD Primary Care Provider [phone] Allergies Active Allergy Reactions Criticality Noted Date [...] Active Active Problems No known active problems Social History Tobacco Use Types Packs/Day Years [...] on file Legal Sex Female 9:54 AM CONFIGURATION DEVELOPER Gender Identity Not on file Sexual Orientation Not on file Last Filed Vital Signs Vital Sign Reading Time Taken Comments Blood Pressure 112/80 09/25/2020 10:37 AM CONFIGURATION DEVELOPER Pulse 76 09/25/2020 10:37 AM CONFIGURATION DEVELOPER Temperature - - Respiratory Rate - - Oxygen Saturation 96% 09/25/2020 10:37 AM CONFIGURATION DEVELOPER Inhaled Oxygen Concentration - - Weight 99.8 kg (220 lb) 10/16/2020 10:34 AM CONFIGURATION DEVELOPER Height 172.7 cm (5' 8 ) 10/16/2020 10:34 AM CONFIGURATION DEVELOPER Body Mass Index 33.45 10/16/2020 10:34 AM CONFIGURATION DEVELOPER Plan of Treatment Not on file Insurance [place] [address] [employer] [facility] Care Teams Production Planning Manager Relationship Specialty Start Date End Date Jannie Howell MD [address] [place] [address] PCP - General 09/14/19
[2024-12-29 19:36] LABS: Hematocrit 46.4 % (37.0-47.0); Hemoglobin 14.5 g/dL (12.0-15.0); Mean Corpuscular HGB Conc 31.3 g/dl (32-36); Mean Corpuscular Hemoglobin 29.7 pg (26-34); Mean Corpuscular Volume 95.1 fl (80-100); Mean Platelet Volume 9.2 fl (7.4-10.4); Platelet Count Result 156 k/mm3 (150-375); Red Blood Count 4.88 M/mm3 (4.2-5.4); White Blood Count 4.9 K/mm3 (4.5-10.0)
[2024-12-29 19:51] LABS: Iron 62 ug/dL (37-170)
[2024-12-29 19:51] LABS: Alanine Aminotransferase 44 U/L (6-35); Albumin Level 4.6 g/dL (3.5-5.1); Alkaline Phosphatase 64 U/L (38-126); Anion Gap 15 mmol/L (4-12); Aspartate Amino Transferase 54 U/L (14-36); Bilirubin,Total 0.4 mg/dL (0.2-1.3); Blood Urea Nitrogen 15 mg/dL (7-17); Calcium 9.6 mg/dL (8.4-10.2); Carbon Dioxide 29 mmol/L (22-30); Chloride 97 mmol/L (98-107); Cholesterol 124 mg/dL (0-200); Estimated Glomerular Filt Rate > 60; Glucose 133 mg/dL (65-110); HDL Direct 29 mg/dL; Potassium 3.8 mmol/L (3.4-5.0); Sodium 141 mmol/L (137-145); Triglycerides 328 mg/dL (<150)
[2024-12-29 20:02] LABS: LDL Cholesterol Direct 48 mg/dL
[2024-12-29 20:05] LABS: Percent Iron Saturation 18 % (20-50)
[2024-12-29 20:42] LABS: Vitamin B12 > 1000.0 pg/mL (239-931)
[2024-12-29 20:48] LABS: Free T4 Free Thyroxine 1.22 ng/dL (0.78-2.19)
[2024-12-29 21:00] LABS: Creatinine Urine 76.9 mg/dL
[2024-12-29 21:04] LABS: MALB Creatinine Ratio 51.5 mg/g (0-30); Microalbumin Urine Random 39.6 mg/L (0-16.7)
== END 2024-12-29 08:25 | disposition home or self-care (01) ==
PROVIDERS: PCP Internal Medicine Endocrinology, Diabetes & Metabolism; Visit Provider Internal Medicine Endocrinology, Diabetes & Metabolism
DX: E89.0 Postprocedural hypothyroidism (principal); R79.89 Other specified abnormal findings of blood chemistry; E11.9 Type 2 diabetes mellitus without complications; E78.1 Pure hyperglyceridemia; Z78.0 Asymptomatic menopausal state; E61.1 Iron deficiency; Z79.899 Other long term (current) drug therapy
CPT/HCPCS: 36415; 80053; 80061; 82043; 82607; 82728; 83540; 83550; 84439; 84443; 85027

== ENCOUNTER 2025-03-02 10:25 | Outpatient (CLI) | payer OTHER, SELFPAY ==
--- OUTSIDE RECORDS SUMMARY | 2025-03-02 10:40 | XMS_ITS | Referral Summary ---
Author Organization [facility] [address] Address [address] [place] [address] Care Team Providers Care Decision Analyst Name Role Phone Jannie Howell MD Primary Care Provider [phone] Allergies Active Allergy Reactions Criticality Noted Date [...] on file Legal Sex Female 9:54 AM TECHNICAL EXPERT Gender Identity Not on file Sexual Orientation Not on file Last Filed Vital Signs Vital Sign Reading Time Taken Comments Blood Pressure 112/80 09/25/2020 10:37 AM TECHNICAL EXPERT Pulse 76 09/25/2020 10:37 AM TECHNICAL EXPERT Temperature - - Respiratory Rate - - Oxygen Saturation 96% 09/25/2020 10:37 AM TECHNICAL EXPERT Inhaled Oxygen Concentration - - Weight 99.8 kg (220 lb) 10/16/2020 10:34 AM TECHNICAL EXPERT Height 172.7 cm (5' 8) 10/16/2020 10:34 AM TECHNICAL EXPERT Body Mass Index 33.45 10/16/2020 10:34 AM TECHNICAL EXPERT Plan of Treatment Not on file [place] [address] [address] [place] [address] [employer] [facility] Care Teams Decision Analyst Relationship Specialty Start Date End Date Jannie Howell MD [address] [place] [address] PCP - General 09/14/19
--- OUTSIDE RECORDS SUMMARY | 2025-03-02 10:40 | XMS_ITS | Clinical Summary ---
Author Organization [facility] [address] Address [address] [place] [address] Care Team Providers Care Zipper Repairer Name Role Phone Jannie Howell MD Primary Care Provider [phone] Allergies Active Allergy Reactions Criticality Noted Date [...] on file Legal Sex Female 9:54 AM GREENSTONE POLISHER OPERATOR Gender Identity Not on file Sexual Orientation Not on file Obstetrics History Last Filed Vital Signs Vital Sign Reading Time Taken Comments Blood Pressure 112/80 09/25/2020 10:37 AM GREENSTONE POLISHER OPERATOR Pulse 76 09/25/2020 10:37 AM GREENSTONE POLISHER OPERATOR Temperature - - Respiratory Rate - - Oxygen Saturation 96% 09/25/2020 10:37 AM GREENSTONE POLISHER OPERATOR Inhaled Oxygen Concentration - - Weight 99.8 kg (220 lb) 10/16/2020 10:34 AM GREENSTONE POLISHER OPERATOR Height 172.7 cm (5' 8) 10/16/2020 10:34 AM GREENSTONE POLISHER OPERATOR Body Mass Index 33.45 10/16/2020 10:34 AM GREENSTONE POLISHER OPERATOR Plan of Treatment Not on file Insurance [employer] CHOICE [place] Care Teams Zipper Repairer Relationship Specialty Start Date End Date Jannie Howell MD [address] [place] [address] PCP - General 09/14/19
[2025-03-02 18:40] LABS: Hematocrit 41.5 % (37.0-47.0); Hemoglobin 12.8 g/dL (12.0-15.0); Immature Granulocyte Percent A 0.2 % (0-0.5); Lymphocytes Absolute Auto 1.77 K/mm3 (0.9-3.2); Mean Corpuscular HGB Conc 30.8 g/dl (32-36); Mean Corpuscular Hemoglobin 30.0 pg (26-34); Mean Corpuscular Volume 97.2 fl (80-100); Nucleated Red Blood Cells Absolute Auto 0.000 K/mm3 (0.0-0.012); Nucleated Red Blood Cells Perc 0.0 % (0.0-0.2); Platelet Count Result 173 k/mm3 (150-375); Red Blood Count 4.27 M/mm3 (4.2-5.4); White Blood Count 4.6 K/mm3 (4.5-10.0)
[2025-03-02 18:46] LABS: Alanine Aminotransferase 32 U/L (6-35); Albumin Level 4.3 g/dL (3.5-5.1); Alkaline Phosphatase 61 U/L (38-126); Anion Gap 9 mmol/L (4-12); Aspartate Amino Transferase 52 U/L (14-36); Bilirubin,Total 0.5 mg/dL (0.2-1.3); Blood Urea Nitrogen 15 mg/dL (7-17); Calcium 9.6 mg/dL (8.4-10.2); Carbon Dioxide 30 mmol/L (22-30); Chloride 99 mmol/L (98-107); Estimated Glomerular Filt Rate > 60; Glucose 139 mg/dL (65-110); Potassium 3.9 mmol/L (3.4-5.0); Sodium 138 mmol/L (137-145); Total Protein 7.3 g/dL (6.3-8.2)
[2025-03-02 19:12] LABS: Ferritin 71.90 ng/mL (11.1-264)
[2025-03-02 19:23] LABS: Thyroid Stimulating Hormone 0.893 uIU/mL (0.465-4.680)
[2025-03-02 19:42] LABS: Vitamin B12 955.0 pg/mL (239-931)
== END 2025-03-02 10:26 | disposition home or self-care (01) ==
LOC: ANHGOSHLAB 10:25
PROVIDERS: PCP Family Medicine; Visit Provider Family Medicine
DX: R00.2 Palpitations (principal); R55 Syncope and collapse
CPT/HCPCS: 36415; 80053; 82607; 82728; 84443; 85025

== ENCOUNTER 2025-05-25 10:04 | Outpatient (CLI) | payer OTHER, SELFPAY ==
--- NOTE | 2025-05-25 10:11 | EST_ITS ---
Patient Info Name: Aundrea Rao Age: 65 years : 1960 Gender: Female Ht: 67 in Wt: 176 lbs BSA: 1.96 m2 HR: 77 bpm BP: 131 / 76 mmHg Exam Date: 05/25/2025 10:11 AM Patient Status: O Admit Date: 05/25/2025 Exam Type: CA stress test treadmill A treadmill exercise stress test was performed. Staff Attending Provider: Geoffrey Meza DO Exercise Technologist: Winnie Mena Exercise Physician: Geoffrey Meza DO Summary 1. 1. Negative Austin exercise stress test for ischemic ST changes by ECG criteria. 2. 2. Reduced functional capacity, achieving 5 METs of workload. 3. 3. Rapid HR response to exercise. 4. 4. Appropriate HR recovery at 1 minute post exercise. 5. 5. No imaging with stress testing. 6. 6. Patient informed of the above results. Protocol: [place] Stress ECG Details Stage: REST Duration (min): 0 min : 42 sec Speed (mph): 0.0 Grade (%): 0 HR (bpm): 77 SBP (mmHg): 131 DBP (mmHg): 76 METS: --- Stage: REST Duration (min): 9 min : 55 sec Speed (mph): 0.0 Grade (%): 0 HR (bpm): 86 SBP (mmHg): 131 DBP (mmHg): 76 METS: --- Stage: STAGE 1 Duration (min): 1 min : 0 sec Speed (mph): 1.7 Grade (%): 10 HR (bpm): 115 SBP (mmHg): 131 DBP (mmHg): 76 METS: --- Stage: STAGE 1 Duration (min): 2 min : 0 sec Speed (mph): 1.7 Grade (%): 10 HR (bpm): 135 SBP (mmHg): 131 DBP (mmHg): 76 METS: --- Stage: STAGE 1 Duration (min): 3 min : 0 sec Speed (mph): 1.7 Grade (%): 10 HR (bpm): 146 SBP (mmHg): 172 DBP (mmHg): 87 METS: --- Stage: STAGE 2 Duration (min): 0 min : 30 sec Speed (mph): 2.5 Grade (%): 12 HR (bpm): 160 SBP (mmHg): 172 DBP (mmHg): 87 METS: --- Stage: RECOVERY Duration (min): 0 min : 29 sec Speed (mph): 0.0 Grade (%): 0 HR (bpm): 153 SBP (mmHg): 172 DBP (mmHg): 87 METS: --- Stage: RECOVERY Duration (min): 1 min : 29 sec Speed (mph): 0.0 Grade (%): 0 HR (bpm): 96 SBP (mmHg): 172 DBP (mmHg): 87 METS: --- Stage: RECOVERY Duration (min): 2 min : 29 sec Speed (mph): 0.0 Grade (%): 0 HR (bpm): 87 SBP (mmHg): 172 DBP (mmHg): 87 METS: --- Stage: RECOVERY Duration (min): 3 min : 29 sec Speed (mph): 0.0 Grade (%): 0 HR (bpm): 92 SBP (mmHg): 146 DBP (mmHg): 80 METS: --- Stage: RECOVERY Duration (min): 4 min : 29 sec Speed (mph): 0.0 Grade (%): 0 HR (bpm): 86 SBP (mmHg): 146 DBP (mmHg): 80 METS: --- Stage: RECOVERY Duration (min): 4 min : 59 sec Speed (mph): 0.0 Grade (%): 0 HR (bpm): 88 SBP (mmHg): 135 DBP (mmHg): 80 METS: --- Rest HR: 86 bpm Peak HR: 161 bpm Rest Sys BP: 131 mmHg Peak Sys BP: 172 mmHg Max Pred HR: 156 bpm % Max Pred HR: 103 % Target HR: 133 bpm Max RPP: 27,692 bpm*mmHg Patterson Score: -5 Termination Reason: Reached target heart rate or workload Cardiac Symptoms: Shortness of breath Max ST Seg Deviation: -1.70 mm Total Time: 3 min : 30 sec Rest Simmons BP: 76 mmHg Peak Simmons BP: 87 mmHg Angina Score: None Total METS: 5.6 Resting ECG Sinus rhythm. Stress ECG No ST changes. Arrhythmias None. Report Signatures
== END 2025-05-25 10:05 | disposition home or self-care (01) ==
PROVIDERS: PCP Family Medicine; Visit Provider Internal Medicine Cardiovascular Disease
DX: R07.9 Chest pain, unspecified (principal)
CPT/HCPCS: 93017

== ENCOUNTER 2025-08-17 08:32 | Outpatient (CLI) | payer OTHER, SELFPAY ==
--- OUTSIDE RECORDS SUMMARY | 2025-08-17 08:41 | XMS_ITS | Clinical Summary ---
Author Organization [facility] [address] Address [address] [place] [address] Care Team Providers Care Peoplesoft Developer Name Role Phone Jannie Howell MD Primary Care Provider [phone] Allergies Active Allergy Reactions Criticality Noted Date [...] Cardiac rhythm disturbance Obesity Thyroid disease Diabetes Sinusitis Allergic rhinitis Acid indigestion Gallstones Anemia [...] on file Legal Sex Female 9:54 AM UNION REPRESENTATIVE Gender Identity Not on file Sexual Orientation Not on file Last Filed Vital Signs Vital Sign Reading Time Taken Comments Blood Pressure 112/80 09/25/2020 10:37 AM UNION REPRESENTATIVE Pulse 76 09/25/2020 10:37 AM UNION REPRESENTATIVE Temperature - - Respiratory Rate - - Oxygen Saturation 96% 09/25/2020 10:37 AM UNION REPRESENTATIVE Inhaled Oxygen Concentration - - Weight 99.8 kg (220 lb) 10/16/2020 10:34 AM UNION REPRESENTATIVE Height 172.7 cm (5' 8) 10/16/2020 10:34 AM UNION REPRESENTATIVE Body Mass Index 33.45 10/16/2020 10:34 AM UNION REPRESENTATIVE Plan of Treatment Not on file Insurance [facility] [employer] [place] Care Teams Peoplesoft Developer Relationship Specialty Start Date End Date Jannie Howell MD [address] [address] PCP - General 09/14/19
[2025-08-17 09:18] LABS: Hematocrit 42.2 % (37.0-47.0); Hemoglobin 13.2 g/dL (12.0-15.0); Mean Corpuscular HGB Conc 31.3 g/dl (32-36); Mean Corpuscular Hemoglobin 29.7 pg (26-34); Mean Corpuscular Volume 94.8 fl (80-100); Platelet Count Result 138 k/mm3 (150-375); Red Blood Count 4.45 M/mm3 (4.2-5.4); White Blood Count 4.3 K/mm3 (4.5-10.0)
[2025-08-17 09:32] LABS: Alanine Aminotransferase 50 U/L (6-35); Albumin Level 4.2 g/dL (3.5-5.1); Alkaline Phosphatase 62 U/L (38-126); Anion Gap 7 mmol/L (4-12); Aspartate Amino Transferase 56 U/L (14-36); Bilirubin,Total 0.3 mg/dL (0.2-1.3); Blood Urea Nitrogen 15 mg/dL (7-17); Calcium 10.0 mg/dL (8.4-10.2); Carbon Dioxide 30 mmol/L (22-30); Chloride 104 mmol/L (98-107); Cholesterol 91 mg/dL (0-200); Estimated Glomerular Filt Rate > 60; Glucose 127 mg/dL (65-110); HDL Direct 33 mg/dL; Potassium 4.1 mmol/L (3.4-5.0); Sodium 141 mmol/L (137-145); Total Protein 6.8 g/dL (6.3-8.2); Triglycerides 186 mg/dL (<150)
[2025-08-17 09:49] LABS: Free T4 Free Thyroxine 0.99 ng/dL (0.78-2.19); MALB Creatinine Ratio 22.7 mg/g (0-30)
[2025-08-17 10:07] LABS: Thyroid Stimulating Hormone 1.120 uIU/mL (0.465-4.680)
[2025-08-17 10:26] LABS: Vitamin B12 915.0 pg/mL (239-931)
== END 2025-08-17 08:33 | disposition home or self-care (01) ==
LOC: ANHLAB 08:33
PROVIDERS: PCP Family Medicine; Visit Provider Nurse Practitioner Family
DX: E04.1 Nontoxic single thyroid nodule (principal); E89.0 Postprocedural hypothyroidism; I10 Essential (primary) hypertension; R79.89 Other specified abnormal findings of blood chemistry; E11.9 Type 2 diabetes mellitus without complications; E78.1 Pure hyperglyceridemia
CPT/HCPCS: 36415; 80053; 80061; 82043; 82306; 82607; 84439; 84443; 85027